=== PATIENT | female | born 1940 | race Caucasian/White ===

== ENCOUNTER → 2018-04-17 16:49 | Outpatient (CLI) | payer MEDICARE, OTHER, SELFPAY ==
[2018-03-17 11:03] VITALS: BMI 25.3
[2018-04-17 17:43] LABS: Absolute Neutrophil Count 7.8 X10^3/uL (2.0-7.7); Basophil# 0.03 X10^3/uL; Basophil% 0.3 % (0-1); Eosinophil# 0.09 X10^3/uL; Eosinophils% 0.8 % (0-5); Hematocrit 45.9 % (37-47); Hemoglobin 14.9 g/dl (12.0-15.0); Lymphocyte % 24.8 % (19-41); Mean Corp Hgb Conc 32.5 g/gl (32-36); Mean Corpuscular Hgb 29.8 pg (27.0-32.0); Mean Corpuscular Volume 91.8 fL (81-99); Mean Platelet Vol. 9.3 fl (6.2-12.0); Monocyte# 0.52 X10^3/uL; Monocyte% 4.6 % (0-10); Neutrophil # 7.83 X10^3/uL (2.7-7.7); Neutrophil % 69.1 % (47-70); Platelet Count 162 K/mm3 (150-450); RBC Distribution Width CV 14.2 % (11.6-14.6); RBC Distribution Width SD 47.7 fl (35.1-43.9); White Blood Count 11.3 K/mm3 (4.4-11.0)
[2018-04-17 17:44] LABS: POSITIVE COUNT NO; POSITIVE DIFFERENTIAL NO; POSITIVE MORPHOLOGY NO
[2018-04-17 19:12] LABS: BNP,B-Type NATRIURETIC PEPTIDE 14.4 pg/mL (0-100)
[2018-04-17 19:48] LABS: BUN 9 mg/dL (7-18); Creatinine, Serum 0.66 mg/dL (0.55-1.02); Glucose 149 mg/dL (74-106)
[2018-04-17 19:49] LABS: Anion Gap 9 (5-15); Calcium,Total 8.7 mg/dL (8.5-10.1); Chloride 103 mmol/L (98-107); Potassium 3.8 mmol/L (3.5-5.1); Sodium Level 135 mmol/L (136-145); Thyroid Stim Hormone (TSH) 1.11 uIU/mL (0.358-3.74)
[2018-04-24 18:18] LABS: BUN/Creat Ratio 13.7 RATIO (10-20); EST Glomerular Filtration Rate 92 mL/min (>60); Est Glom Filt Rate - Afr Amer 112 mL/min (>60)
== END ==
PROVIDERS: Family Provider Family Medicine; PCP Family Medicine; Referring Provider Physician Assistant Medical; Visit Provider Physician Assistant Medical
DX: I49.3 Ventricular premature depolarization (principal); I49.1 Atrial premature depolarization; R00.2 Palpitations; R00.0 Tachycardia, unspecified
CPT/HCPCS: 36415; 80048; 83880; 84439; 84443; 85025

== ENCOUNTER → 2018-04-22 12:51 | Outpatient (CLI) | payer MEDICARE, OTHER, SELFPAY ==
[2018-03-17 11:03] VITALS: BMI 25.3
== END ==
PROVIDERS: Family Provider Internal Medicine; PCP Internal Medicine; Referring Provider Physician Assistant Medical; Visit Provider Physician Assistant Medical
DX: I49.1 Atrial premature depolarization (principal); I49.3 Ventricular premature depolarization; R00.2 Palpitations; R00.0 Tachycardia, unspecified
CPT/HCPCS: 93225; 93226

== ENCOUNTER → 2018-04-25 13:59 | Outpatient (CLI) | payer MEDICARE, OTHER, SELFPAY ==
[2018-03-17 11:03] VITALS: BMI 25.3
--- NOTE | 2018-04-25 14:02 | ECHOD_ITS ---
Reason For Study: TACHYCARDIA Procedure This was a 2D Doppler, Color Flow transthoracic echocardiogram. Myocardial strain analysis was performed in this exam to aid in the assessment of cardiac function. The study was technically difficult. Exam performed in department. Left Ventricle Normal LV size. Left ventricular systolic function is lower limits of normal. The estimated ejection fraction is 50 %. The global longitudinal strain = -13% (abnormal). No evidence for diastolic dysfunction. No regional wall motion abnormalities noted. Right Ventricle Normal RV size. Normal systolic function. Atria Normal left atrium. Normal right atrium. No doppler evidence for ASD. Mitral Valve There is no mitral annular calcification. Normal mitral valve. Mild (1+) mitral valve insufficiency. Tricuspid Valve Normal tricuspid valve. Mild tricuspid valve insufficiency. Right ventricular systolic pressure estimated to be 20 mmHg. Aortic Valve Trisinus/trileaflet aortic valve. Normal aortic valve. Pulmonic Valve The pulmonic valve is not well visualized. Mild (1+) pulmonic valve insufficiency. Great Vessels Normal sized aortic root. Pericardium/Pleural No pericardial effusion. MMode/2D Measurements & Calculations LVIDd: 3.0 cm IVSd: 0.85 cm Ao root diam: 3.7 cm LVIDs: 2.3 cm LVPWd: 0.93 cm RVDd: 2.6 cm FS: 24.5 % LAV(MOD-sp4): 26.3 ml LA A4 area: 12.1 cm2 LA dimension(2D): 2.4 cm RA A4 area: 10.0 cm2 Doppler Measurements & Calculations MV E max molina: 22.6 cm/sec Lat Peak E' Molina: 4.9 cm/sec Med Peak E' Molina: 2.7 cm/sec MV A max molina: 81.9 cm/sec E/E' lat: 4.6 E/E' med: 8.4 MV E/A: 0.28 MV P1/2t max molina: 23.8 cm/sec Ao V2 max: 78.4 cm/sec LV V1 max: 61.8 cm/sec MV P1/2t: 59.2 msec Ao max P.5 mmHg LV V1 max P.6 mmHg MV dec slope: 117.7 cm/sec2 MVA(P1/2t): 3.7 cm2 PA V2 max: 50.9 cm/sec PI end-d molina: 125.4 cm/sec TR max molina: 208.6 cm/sec TR max P.4 mmHg Interpretation Summary The study was technically difficult. Left ventricular systolic function is lower limits of normal. The estimated ejection fraction is 50 %. The global longitudinal strain = -13% (abnormal). Mild (1+) mitral valve insufficiency. Mild tricuspid valve insufficiency. Mild (1+) pulmonic valve insufficiency. Right ventricular systolic pressure estimated to be 20 mmHg. No evidence for diastolic dysfunction. Ordering Physician: OMI WELLINGTON Referring Physician: DAYA GALLAGHER Performed By: Aby Loaiza, DIPESH, RVT
--- OUTSIDE RECORDS SUMMARY | 2018-06-30 03:55 | XMS RPT_ITS | Clinical Summary ---
:1940 Author Organization [facility] Address [facility] [place] [address] Phone Care Team Providers Name Role Phone Jennifer BARBOZA, Naomie Christensen Unavailable Unavailable Conditions or Problems Problem Name Problem Onset Status Entry Provider Comment Standard Annotate Code Date Date Description PALPITATIONS 50751470 Active Natalia Michelle Palpitations (SNOMED CT) / Carroll BARBOZA Dyspnea on 36168132 Active Naomie Rodriguez Dyspnea on exertion (SNOMED CT) / 0 RN exertion Headache 22360261 Active Shelton Riley Headache (SNOMED CT) /20 0 Ward HERNDON Angina 503487164 Active Shelton Riley 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 Body mass Z68.26 Active Shelton Riley Body mass index (BMI) (ICD-10-CM) /20 0 Moodisparakel index (BMI) 26.0-26.99, 26.0-26.9, adult adult Chest pain, 21814352 Active Rocio Carrington Chest pain unspecified (SNOMED CT) /20 0 TAMRA Rojas Medications Medication Instructions Start Stop Generic Name [facility] Provider Date Date IMDUR 30 MG One tablet by / ISOSORBIDE [id number] Shelton Riley [id number] mouth daily 20 MONONIT[address] Ward HERNDON METOPROLOL One tablet by / METOPROLOL [id number] Shelton Riley TARTRATE 25 MG mouth twice 20 TARTRATE Moodispaw TABS daily NITROGLYCERIN 1 tablet under / NITROGLYCERIN 78683985039 Shelton Riley 0.4 MG SUBL the tongue 20 Moodispaw every 5 minutes for chest pain x 3 OMEPRAZOLE 20 MG One tablet by OMEPRAZOLE 84119360528 Shelton Riley CPDR mouth daily as 20 Ward barnes MD ADULT ASPIRIN One tablet by ASPIRIN [id number] Shelton Riley REGIMEN 81 MG mouth daily 20 Moodispaw DAVC Medications Administered No information available. 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 Dietary management education, guidance, and counseling (procedure) SMOK STATUS Never smoker Tobacco use [facility] No Fall risk assessment MEDS REVIEW Done Documentation of current medications (procedure) Replaced Document: Midmark ECG Observations EKG INTERP Sinus Tachycardia electrocardiogram WITHIN NORMAL LIMITS interpretation EKG T AXIS 60 deg T wave axis, electrocardiogram EKG QRS AXIS 35 deg QRS axis, electrocardiogram EKG PWAVAXIS 58 deg P wave axis, electrocardiogram QRS INTERVAL 92 ms QRS duration, electrocardiogram ZZ-GE-unk 427 ms GE use only - for LinkLogic import when terms are not otherwise specified QT INTERVAL new path ms QT interval, electrocardiogram IL INTERVAL 162 ms IL interval, electrocardiogram EKGHRTRATE 103 BPM heart rate on electrocardiogram Clinical Lists Update: Preload CARDEFECHO 55 % Left ventricular Ejection fraction Lab Report: CBC W/Diff, Automated LYMPHCT AUTO 2.48 X10 3/UL 10*3/mm3 0.83-4.51 lymphocyte count, blood, automated ANC 4.8 X10 3/UL 10*3/mm3 2.0-7.7 neutrophil count, blood IMM GRANU % 0.400 % 0.0-0.9 immature granulocytes, percentage of total cells, blood BASOPHIL % 0.7 % 0-1 basophils as percent of blood leukocytes EOSINOPHIL % 2.2 % 0-5 eosinophils as percent of blood leukocytes MONOCYTE % 7.5 % 0-10 monocytes as percent of blood leukocytes LYMPHS % 30.4 % 19-41 lymphocytes as percent of blood leukocytes PMN % 58.8 % 47-70 neutrophils as percent of blood leukocytes MPV 10.1 fL 6.2-12.0 mean platelet volume PLATELETS 208 10*3/mm3 150-450 platelet count RDW-SD 43.0 fL 35.1-43.9 red blood cell distribution width, size density RDW 13.1 % 11.6-14.6 red blood cell distribution width MCHC RBC 33.8 G/GL g/dL 32-36 mean corpuscular hemoglobin concentration, RBC MCH 30.7 pg 27.0-32.0 mean corpuscular hemoglobin, RBC MCV 90.6 fL 81-99 mean corpuscular volume, RBC HCT 46.4 % 37-47 hematocrit, blood HGB 15.7 g/dL 12.0-15.0 H hemoglobin, blood RBC M/UL 5.12 10*6/uL 4.2-5.4 red blood count WBC BLOOD 8.2 10*9/L 4.4-11.0 leukocyte (white blood cells) count, blood Lab Report: Basic Metabolic Profile (BMP) ANION GAP 7 5-15 anion gap, serum CO2 29.0 mmol/L 21.0-32.0 carbon dioxide, venous blood CHLORIDE 100 mmol/L 98-107 chloride, serum POTASSIUM 3.6 mmol/L 3.5-5.1 potassium, serum SODIUM 136 mmol/L 136-145 sodium, serum CALCIUM 8.9 mg/dL 8.5-10.1 calcium, serum BUN/CREAT 23.6 RATIO 10-20 H urea nitrogen/creatinine ratio, serum CCVCREABSA 38.97 mL/min calculated corrected value of creatinine clearance with body surface area GFRAA 116 mL/min >60 Glomerular Filtration rate GFR EST 96 mL/min >60 estimated glomerular filtration rate CREATININE 0.64 mg/dL 0.55-1.02 creatinine, serum BUN 15 mg/dL 7-18 urea nitrogen, blood GLUCOSE SER 106 mg/dL 70-110 blood glucose Lab Report: Liver Profile BILI DIRECT 0.14 mg/dL 0.00-0.30 bilirubin, serum, direct BILI TOTAL 0.50 mg/dL 0.20-1.00 bilirubin, serum, total SGPT (ALT) 41 U/L 12-78 alanine aminotransferase (SGPT), serum ALK PHOS 109 U/L 45-117 alkaline phosphatase, serum SGOT (AST) 31 U/L 15-37 aspartate aminotransferase (SGOT), serum GLOBULIN TOT 3.2 g/dL 2.2-4.2 globulins, serum, total ALBUMIN 3.9 g/dL 3.4-5.0 albumin, serum PROTEIN, TOT 7.1 g/dL 6.4-8.2 protein, total, serum Lab Report: Lipid Profile VLDL 20 mg/dL 5-40 very low density lipoproteins LDL 106 mg/dL 0-130 Cholesterol in LDL [Mass/volume] in Serum or Plasma HDL 46 mg/dL Cholesterol in HDL [Mass/volume] in Serum or Plasma TRIGLYCRDES 102 mg/dL Triglyceride [Mass/volume] in Serum or Plasma CHOLESTEROL 172 mg/dL 200 Cholesterol [Mass/volume] in Serum or Plasma Lab Report: T4 Total, Thyroxin T4, TOTAL 9.8 ug/dL 4.8-13.9 thyroxine, serum, total Lab Report: Thyroid Stim Hormone (TSH) TSH 2.05 u[iU]/mL 0.358-3.74 thyroid stimulating hormone, serum Lab Report: Prothrombin Time w/INR INR 1.1 international normalized ratio (INR) PT RATIO 13.5 SECONDS 11.7-14.9 prothrombin time, actual/normal, ratio Lab Report: Partial Thromboplast Time ACTIV PTT 38.3 s 24.1-36.2 H activated partial thromboplastin time (aPTT) Plan of Care Type Date Detail Appointment 11:[address], [address], [place], [address], Appointment 11:30 AM Shelton Hopper MD, [address], [address], [place], [address], Pending order 30 Day Holter Monitor Pending order 30 Day Holter Monitor Pending order PFM Pending order Follow Up Appt 6 weeks Pending order *CBC with Differential Pending order *BMP Pending order *PT/INR Pending order *PTT-Partial Thromboplastin Time Pending order *Hepatic Function Panel Pending order *Lipid Profile CC PCP Pending order *T4 (Total) Pending order *TSH Pending order Echocardiogram (complete) Pending order Carotid duplex Pending order Left Heart Cath Pending order CT Head/Brain with and without Contrast Pending order Left Heart Cath Pending order CT Head/Brain with and without Contrast Pending Order excluded from report: Pending order CT Head/Brain without contrast Pending order X-Ray, Chest, PA & Lateral Procedures Code Procedure Name Date Entry Date [facility] Nurse, Teaching, Wound Check (no charge) [facility] Nurse, Teaching, Wound Check (no charge) CPT-72813 EKG (In office) F/U PFM PFM FUA 6 weeks Follow Up Appt 6 weeks Echo Echocardiogram (complete) CPT-79051 CT Head/Brain with and without Contrast Order excluded from report: CPT-73417 CT Head/Brain without contrast CD Carotid duplex 0184-1 *CBC with Differential 0667-1 *BMP 6301-6 *PT/INR 85890-1 *PTT-Partial Thromboplastin Time 0788-1 *Hepatic Function Panel 61820-5 *Lipid Profile CC PCP 3026-2 *T4 (Total) 3016-3 *TSH Vital Signs Date Name Value Unit Description BMI (Body Mass Index) 26.57 kg/m2 Body Mass Index [Ratio] BP Diastolic 84 mm[Hg] blood pressure, diastolic - 8462-4 BP Systolic 128 mm[Hg] blood pressure, systolic - 8480-6 Heart Rate 100 /min pulse rate E&M - 8867-4 Height 63 [in_us] height E&M - 8302-2 Height 160.02 cm height in centimeters E&M Respiratory Rate 18 /min respiratory rate E&M - 9279-1 Weight Measured 150 [lb_av] weight E&M - 3141-9 Weight Measured 68.04 kg weight in kilograms E&M
--- OUTSIDE RECORDS SUMMARY | 2018-06-30 03:56 | XMS RPT_ITS | Clinical Summary ---
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 Body mass Z68.26 Active Shelton Riley Body mass index (BMI) (ICD-10-CM) / Ward index (BMI) 26.0-26.99, 26.0-26.9, adult adult Chest pain, 64034665 Active Rocio Carrington Chest pain unspecified (SNOMED CT) / TAMRA Rojas Medications Medication Instructions Start Stop Generic Name [facility] Provider Date Date IMDUR 30 MG One tablet by / ISOSORBIDE [id number] Shelton Riley [id number] mouth daily 20 MONONITRATE Ward HERNDON METOPROLOL One tablet by / METOPROLOL [id number] Shelton Riley TARTRATE 25 MG mouth twice 20 TARTRATE Moodispaw TABS daily NITROGLYCERIN 1 tablet under / NITROGLYCERIN 44912660250 Shelton Riley 0.4 MG SUBL the tongue 20 Moodispaw every 5 minutes for chest pain x 3 OMEPRAZOLE 20 MG One tablet by / OMEPRAZOLE 75646094801 Shelton Riley CPDR mouth daily as 20 Moodispaw needed ADULT ASPIRIN One tablet by ASPIRIN 22501651652 Shelton Riley REGIMEN 81 MG mouth daily 20 Moodispaw TBEC Medications Administered No information available. 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 Dietary management education, guidance, and counseling (procedure) SMOK STATUS Never smoker Tobacco use [facility] No Fall risk assessment MEDS [...] INTERVAL new path ms QT interval, electrocardiogram [place] INTERVAL 162 ms AL interval, electrocardiogram EKGHRTRATE 103 BPM heart rate [...] Plan of Care Type Date Detail Appointment 11:30 AM Shelton Hopper MD, [address], [address], [place], [address], Pending order PFM Pending order Follow Up [...] Procedures Code Procedure Name Date Entry Date CPT-90527 EKG (In office) F/U PFM PFM FUA 6 weeks Follow Up Appt 6 weeks Echo Echocardiogram (complete) CPT-34533 CT Head/Brain with and without Contrast Order excluded from report: CPT-53436 CT Head/Brain without contrast CD Carotid duplex 0184-1 *CBC with Differential 0667-1 *BMP 6301-6 *PT/INR 10179-0 *PTT-Partial Thromboplastin Time 0788-1 *Hepatic Function Panel 57723-4 *Lipid Profile CC PCP 3026-2 *T4 (Total) [...]
--- OUTSIDE RECORDS SUMMARY | 2018-06-30 03:56 | XMS RPT_ITS | Clinical Summary ---
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 Body mass Z68.26 Active Shelton Riley Body mass index (BMI) (ICD-10-CM) / Ward index (BMI) 26.0-26.99, 26.0-26.9, adult adult Chest pain, 38853031 Active Rocio Carrington Chest pain unspecified (SNOMED CT) / TAMRA Rojas Medications Medication Instructions Start Stop Generic Name [facility] Provider Date Date IMDUR 30 MG One tablet by / ISOSORBIDE 61858117530 Shelton Riley [id number] mouth daily 20 MONONIT[address] Ward HERNDON METOPROLOL One tablet by / METOPROLOL 00714146120 Shelton Riley TARTRATE 25 MG mouth twice 20 TARTRATE Moodispaw TABS daily NITROGLYCERIN 1 tablet under / NITROGLYCERIN 13521180956 Shelton Riley 0.4 MG SUBL the tongue 20 Edmarisparakel every 5 minutes for chest pain x 3 OMEPRAZOLE 20 MG One tablet by / OMEPRAZOLE 38306456784 Shelton Riley CPDR mouth daily as 20 Moodispaw needed ADULT ASPIRIN One tablet by / ASPIRIN 96091612700 Shelton Riley REGIMEN 81 MG mouth daily 20 Moodispaw [facility] Medications Administered No information available. 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 Dietary management education, guidance, and counseling (procedure) SMOK STATUS Never smoker Tobacco use [facility] No Fall risk assessment MEDS REVIEW [...] INTERVAL new path ms QT interval, electrocardiogram [place] INTERVAL 162 ms ND interval, electrocardiogram EKGHRTRATE 103 BPM heart rate on electrocardiogram Plan of Care Type Date Detail Appointment 11:30 AM Shelton Hopper MD, [address] [facility], [address], [place], [address], Pending order PFM Pending order Follow Up [...] Pending order Left Heart Cath Pending order Echocardiogram (complete) Pending order CT Head/Brain with and without Contrast Pending Order excluded from report: Pending order CT Head/Brain without contrast Pending order X-Ray, Chest, PA & Lateral Pending order CT Head/Brain without contrast Pending order Carotid duplex Procedures Code Procedure Name Date Entry Date CPT-48467 EKG (In office) F/U PFM PFM FUA 6 weeks Follow Up Appt 6 weeks CPT-75801 CT Head/Brain with and without Contrast Order excluded from report: Vital Signs Date Name Value Unit Description [...]
--- OUTSIDE RECORDS SUMMARY | 2018-06-30 03:56 | XMS RPT_ITS | Clinical Summary ---
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 Body mass Z68.26 Active Shelton Riley Body mass index (BMI) (ICD-10-CM) / Ward index (BMI) 26.0-26.99, 26.0-26.9, adult adult Chest pain, 80127790 Active Rocio Carrington Chest pain unspecified (SNOMED CT) / TAMRA Rojas Medications Medication Instructions Start Stop Generic Name [facility] Provider Date Date IMDUR 30 MG One tablet by / ISOSORBIDE 65247377777 Shelton Riley [id number] mouth daily 20 MONONITRATE Ward HERNDON METOPROLOL One tablet by / METOPROLOL 87110539558 Shelton Riley TARTRATE 25 MG mouth twice 20 TARTRATE Moodispaw TABS daily NITROGLYCERIN 1 tablet under / NITROGLYCERIN 28244807754 Shelton Riley 0.4 MG SUBL the tongue 20 Edmarisparakel every 5 minutes for chest pain x 3 OMEPRAZOLE 20 MG One tablet by / OMEPRAZOLE 84376181208 Shelton Riley CPDR mouth daily as 20 Moodispaw needed ADULT ASPIRIN One tablet by / ASPIRIN 91877716946 Shelton Riley REGIMEN 81 MG mouth daily 20 Moodispaw [facility] Medications Administered No information available. 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 Dietary management education, guidance, and counseling [...] INTERVAL new path ms QT interval, electrocardiogram [place] INTERVAL 162 ms [place] interval, electrocardiogram EKGHRTRATE 103 BPM heart rate on electrocardiogram Plan of Care Type Date Detail Appointment 11:30 AM Shelton Hopper MD, [address], [address], [place], [address], Appointment 11:30 AM Shelton Hopper MD, [address], [address], [place], [address], Pending order PFM Pending order Follow Up [...] Procedures Code Procedure Name Date Entry Date CPT-98724 EKG (In office) F/U PFM PFM FUA 6 weeks Follow Up Appt 6 weeks CPT-28734 CT Head/Brain with and without Contrast Order [...]
--- OUTSIDE RECORDS SUMMARY | 2018-06-30 03:56 | XMS RPT_ITS | Clinical Summary ---
:1939 Author Organization [facility] Address [address] [place] [address] Phone Care Team Providers Name Role Phone Ward HERNDON, Shelton Riley Unavailable [ ] Conditions or Problems Problem Name Problem Onset Status Entry Provider Comment Standard Annotate Code Date Date Description Chest pain, R07.9 Active Rocio Carrington Chest pain, unspecified (ICD-10-CM /20 /20 TAMRA Rojas unspecified ) Medications No information available. Medications Administered No information available. Allergies, Adverse Reactions, Alerts No information available. Results No information available. Plan of Care Type Date Detail Appointment 11:30 AM Shelton Hopper MD, [address] [place] [address], [address], [place], [address], Procedures No information available. Vital Signs No information available.
--- OUTSIDE RECORDS SUMMARY | 2018-06-30 03:56 | XMS RPT_ITS | Clinical Summary ---
:1939 Author Organization [facility] Address [facility] [place] [address] Phone Care Team Providers Name Role Phone Carroll BARBOZA, Natalia Michelle Unavailable Conditions or Problems Problem Name Problem Onset Status Entry Provider Comment Standard Annotate Code Date Date Description PALPITATIONS 45860878 Active Natalia Michelle Palpitations (SNOMED CT) / Carroll BARBOZA Dyspnea on 43632556 Active Naomie A Jennifer Dyspnea on exertion (SNOMED CT) / 0 RN exertion Headache 54618903 Active Shelton Rilye Headache (SNOMED CT) /20 0 Moodisjosselin HERNDON Angina 465269519 Active Shelton Riley 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 Body mass Z68.26 Active Shelton Riley Body mass index (BMI) (ICD-10-CM) /20 0 Moodisparakel index (BMI) 26.0-26.99, 26.0-26.9, adult adult Chest pain, 16309571 Active Rocio Carrington Chest pain unspecified (SNOMED CT) /20 0 TAMRA Rojas Medications Medication Instructions Start Stop Generic Name [facility] Provider Date Date IMDUR 30 MG One tablet by / ISOSORBIDE 14565106918 Shelton Riley [id number] mouth daily 20 MONONITRATE Edmarisjosselin HERNDON METOPROLOL One tablet by / METOPROLOL 76997736260 Shelton Riley TARTRATE 25 MG mouth twice 20 TARTRATE Moodispaw TABS daily NITROGLYCERIN 1 tablet under / NITROGLYCERIN 94799363442 Shelton Riley 0.4 MG SUBL the tongue 20 Moodispaw every 5 minutes for chest pain x 3 OMEPRAZOLE 20 MG One tablet by OMEPRAZOLE 86511021593 Shelton Riley CPDR mouth daily as 20 Moodispaw needed MD ADULT ASPIRIN One tablet by ASPIRIN 66171242502 Shelton Riley REGIMEN 81 MG mouth daily 20 Moodispaw [facility] Medications Administered No information available. 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 Dietary management education, guidance, and counseling (procedure) SMOK STATUS Never smoker Tobacco use [facility] No Fall risk assessment MEDS REVIEW [...] INTERVAL new path ms QT interval, electrocardiogram [place] INTERVAL 162 ms [place] interval, electrocardiogram EKGHRTRATE 103 BPM heart rate [...] Plan of Care Type Date Detail Appointment 10:30 AM [address], [address], [place], [address], Appointment 11:30 AM Shelton Hopper MD, [address], [address], [place], [address], Pending order 30 Day Holter Monitor Pending [...] Procedures Code Procedure Name Date Entry Date CPT-88746 EKG (In office) F/U PFM PFM FUA 6 weeks Follow Up Appt 6 weeks Echo Echocardiogram (complete) CPT-36088 CT Head/Brain with and without Contrast Order excluded from report: CPT-93798 CT Head/Brain without contrast CD Carotid duplex 0184-1 *CBC with Differential 0667-1 *BMP 6301-6 *PT/INR 82881-9 *PTT-Partial Thromboplastin Time 0788-1 *Hepatic Function Panel 44136-2 *Lipid Profile CC PCP 3026-2 *T4 (Total) [...]
--- OUTSIDE RECORDS SUMMARY | 2018-06-30 03:56 | XMS RPT_ITS | Clinical Summary ---
:1940 Author Organization [facility] Address [facility] [place] [address] Phone Care Team Providers Name Role Phone Jennifer BARBOZA, Naomie Christensen Unavailable Unavailable Conditions or Problems Problem Name Problem Onset Status Entry Provider Comment Standard Annotate Code Date Date Description PALPITATIONS 87380045 Active Natalia Michelle Palpitations (SNOMED CT) / Carroll BARBOZA Dyspnea on 96102277 Active Naomie Rodriguez Dyspnea on exertion (SNOMED CT) / 0 RN exertion Headache 14487864 Active Shelton Riley Headache (SNOMED CT) /20 0 Ward HERNDON Angina 823783529 Active Shelton Riley 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 Body mass Z68.26 Active Shelton Riley Body mass index (BMI) (ICD-10-CM) /20 0 Moodisparakel index (BMI) 26.0-26.99, 26.0-26.9, adult adult Chest pain, 28874087 Active Rocio Carrington Chest pain unspecified (SNOMED CT) /20 0 TAMRA Rojas Medications Medication Instructions Start Stop Generic Name [facility] Provider Date Date IMDUR 30 MG One tablet by / ISOSORBIDE [id number] Shelton Riley [id number] mouth daily 20 [address] Ward HERNDON METOPROLOL One tablet by / METOPROLOL 08190992429 Shelton Riley TARTRATE 25 MG mouth twice 20 TARTRATE Moodispaw TABS daily NITROGLYCERIN 1 tablet under / NITROGLYCERIN 82630080702 Shelton Riley 0.4 MG SUBL the tongue 20 Moodispaw every 5 minutes for chest pain x 3 OMEPRAZOLE 20 MG One tablet by OMEPRAZOLE 92007867459 Shelton Riley CPDR mouth daily as 20 Ward barnes MD ADULT ASPIRIN One tablet by ASPIRIN 24792636544 Shelton Riley REGIMEN 81 MG mouth daily 20 Moodispaw DAVC Medications Administered No information available. 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 Dietary management education, guidance, and counseling (procedure) SMOK STATUS Never smoker Tobacco use [facility] No Fall risk assessment [...] Date Detail Appointment 11:00 AM [address], [address], [place], [address], Appointment 11:30 AM Shelton Hopper MD, [address], [address], [place], [address], Pending order 30 Day Holter Monitor Pending [...] Procedures Code Procedure Name Date Entry Date [facility] Nurse, Teaching, Wound Check (no charge) CPT-52078 EKG (In office) F/U PFM PFM FUA 6 weeks Follow Up Appt 6 weeks Echo Echocardiogram (complete) CPT-31932 CT Head/Brain with and without Contrast Order excluded from report: CPT-04929 CT Head/Brain without contrast CD Carotid duplex 0184-1 *CBC with Differential 0667-1 *BMP 6301-6 *PT/INR 05508-3 *PTT-Partial Thromboplastin Time 0788-1 *Hepatic Function Panel 68231-6 *Lipid Profile CC PCP 3026-2 *T4 (Total) [...]
--- OUTSIDE RECORDS SUMMARY | 2018-06-30 03:56 | XMS RPT_ITS | Clinical Summary ---
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 Body mass Z68.26 Active Shelton Riley Body mass index (BMI) (ICD-10-CM) / Ward index (BMI) 26.0-26.99, 26.0-26.9, adult adult Chest pain, R07.9 Active Rocio Carrington Chest pain, unspecified (ICD-10-CM) / TAMRA Rojas unspecified Medications Medication Instructions Start Stop Generic Name [facility] Provider Date Date IMDUR 30 MG One tablet by / ISOSORBIDE [id number] Shelton Riley [id number] mouth daily [address] Ward HERNDON METOPROLOL One tablet by / METOPROLOL 24962897258 Shelton Riley TARTRATE 25 MG mouth twice 20 TARTRATE Moodispaw TABS daily NITROGLYCERIN 1 tablet under / NITROGLYCERIN 48659193531 Shelton Riley 0.4 MG SUBL the tongue 20 Moodispaw every 5 minutes for chest pain x 3 OMEPRAZOLE 20 MG One tablet by / OMEPRAZOLE 84837053069 Shelton Riley CPDR mouth daily as 20 Moodispaw needed ADULT ASPIRIN One tablet by / ASPIRIN 54631793676 Shelton Riley REGIMEN 81 MG mouth daily 20 Moodispaw TBEC MD Medications Administered No information available. 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 Dietary management education, guidance, and counseling (procedure) SMOK STATUS Never smoker Tobacco use [facility] No Fall risk assessment [...] INTERVAL new path ms QT interval, electrocardiogram LA INTERVAL 162 ms LA interval, electrocardiogram EKGHRTRATE 103 BPM heart rate on electrocardiogram Plan of Care Type Date Detail Appointment 11:30 AM Shelton Hopper MD, [address], [address], [place], [address], Appointment 11:30 AM Shelton Hopper MD, [address], [address], [place], [address], Pending order PFM Pending order Follow Up [...] Procedures Code Procedure Name Date Entry Date CPT-92669 EKG (In office) F/U PFM PFM FUA 6 weeks Follow Up Appt 6 weeks CPT-02446 CT Head/Brain with and without Contrast Order [...]
--- OUTSIDE RECORDS SUMMARY | 2018-06-30 03:56 | XMS RPT_ITS | Clinical Summary ---
:1940 Author Organization [facility] Address [facility] [place] [address] Phone Care Team Providers Name Role Phone Jennifer RN, Naomie Christensen Unavailable Unavailable Conditions or Problems Problem Name Problem Onset Status Entry Provider Comment Standard Annotate Code Date Date Description Dyspnea on 26300118 Active Naomie Rodriguez Dyspnea on exertion (SNOMED CT) / RN exertion Headache 18552691 Active Shelton Riley Headache (SNOMED CT) / Ward HERNDON Angina 100672085 Active Shelton Riley Angina pectoris (SNOMED CT) / Edmarispaw pectoris Body mass Z68.26 Active Shelton Riley Body mass index (BMI) (ICD-10-CM) / Moodisparakel index (BMI) 26.0-26.99, 26.0-26.9, adult adult Chest pain, 56563452 Active Rocio Carrington Chest pain unspecified (SNOMED CT) / TAMRA Rojas Medications Medication Instructions Start Stop Generic Name [facility] Provider Date Date IMDUR 30 MG One tablet by / ISOSORBIDE 53517453496 Shelton Riley [id number] mouth daily 20 MONONITRATE Moodisjosselin HERNDON METOPROLOL One tablet by / METOPROLOL 03136891243 Shelton Riley TARTRATE 25 MG mouth twice 20 TARTRATE Moodispaw TABS daily NITROGLYCERIN 1 tablet under / NITROGLYCERIN 08003789393 Shelton Riley 0.4 MG SUBL the tongue 20 Moodispaw every 5 minutes for chest pain x 3 OMEPRAZOLE 20 MG One tablet by / OMEPRAZOLE 09653535172 Shelton Riley CPDR mouth daily as 20 Moodispaw needed ADULT ASPIRIN One tablet by 2017/10/ ASPIRIN 19222707939 Shelton Riley REGIMEN 81 MG mouth daily 20 Ward SOTELO MD Medications Administered No information available. 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 Dietary management education, guidance, and counseling (procedure) SMOK STATUS Never smoker Tobacco use [facility] No Fall risk assessment [...] INTERVAL new path ms QT interval, electrocardiogram IN INTERVAL 162 ms IN interval, electrocardiogram EKGHRTRATE 103 BPM heart rate on electrocardiogram Clinical Lists Update: Preload CARDEFECHO 55 % Left ventricular Ejection fraction Plan of Care Type Date Detail Appointment 11:30 AM Shelton Hopper MD, [address], [address], [place], [address], Pending order PFM Pending order Follow Up [...] Procedures Code Procedure Name Date Entry Date CPT-75679 EKG (In office) F/U PFM PFM FUA 6 weeks Follow Up Appt 6 weeks Echo Echocardiogram (complete) CPT-85462 CT Head/Brain with and without Contrast Order excluded from report: CPT-96554 CT Head/Brain without contrast CD Carotid duplex Vital Signs Date Name Value Unit Description [...]
--- OUTSIDE RECORDS SUMMARY | 2018-06-30 03:56 | XMS RPT_ITS | Clinical Summary ---
:1940 Author Organization [facility] Address [facility] [place] [address] Phone Care Team Providers Name Role Phone Carroll BARBOZA, Natalia Michelle Unavailable Conditions or Problems Problem Name Problem Onset Status Entry Provider Comment Standard Annotate Code Date Date Description PALPITATIONS 15286297 Active Natalia Michelle Palpitations (SNOMED CT) / Carroll BARBOZA Dyspnea on 61929713 Active Naomie A Jennifer Dyspnea on exertion (SNOMED CT) / 0 RN exertion Headache 53700766 Active Shelton Riley Headache (SNOMED CT) /20 0 Moodisjosselin HERNDON Angina 619918889 Active Shelton Riley 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 Body mass Z68.26 Active Shelton Riley Body mass index (BMI) (ICD-10-CM) /20 0 Moodisparakel index (BMI) 26.0-26.99, 26.0-26.9, adult adult Chest pain, 30848300 Active Rocio Carrington Chest pain unspecified (SNOMED CT) /20 0 TAMRA Rojas Medications Medication Instructions Start Stop Generic Name [facility] Provider Date Date IMDUR 30 MG One tablet by / ISOSORBIDE [id number] Shelton Riley [id number] mouth daily 20 MONONITRATE Edmarisjosselin HERNDON METOPROLOL One tablet by / METOPROLOL 99402821586 Shelton Riley TARTRATE 25 MG mouth twice 20 TARTRATE Moodispaw TABS daily NITROGLYCERIN 1 tablet under / NITROGLYCERIN 28410026205 Shelton Riley 0.4 MG SUBL the tongue 20 Moodispaw every 5 minutes for chest pain x 3 OMEPRAZOLE 20 MG One tablet by OMEPRAZOLE 99255572303 Shelton Riley CPDR mouth daily as 20 Moodispaw needed MD ADULT ASPIRIN One tablet by ASPIRIN 20863334983 Shelton Riley REGIMEN 81 MG mouth daily 20 Moodispaw BANNERC Medications Administered No information available. 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 Dietary management education, guidance, and [...] INTERVAL new path ms QT interval, electrocardiogram DC INTERVAL 162 ms DC interval, electrocardiogram EKGHRTRATE 103 BPM heart rate [...] Date Detail Appointment 10:30 AM [address], [address], [place], [address], Appointment 11:30 AM Shelton Hopper MD, [address], [address], [place], [address], Pending order 30 Day Holter Monitor Pending [...] Procedures Code Procedure Name Date Entry Date CPT-46423 EKG (In office) F/U PFM PFM FUA 6 weeks Follow Up Appt 6 weeks Echo Echocardiogram (complete) CPT-63810 CT Head/Brain with and without Contrast Order excluded from report: CPT-74007 CT Head/Brain without contrast CD Carotid duplex 0184-1 *CBC with Differential 0667-1 *BMP 6301-6 *PT/INR 41074-0 *PTT-Partial Thromboplastin Time 0788-1 *Hepatic Function Panel 20386-0 *Lipid Profile CC PCP 3026-2 *T4 (Total) [...]
--- OUTSIDE RECORDS SUMMARY | 2018-06-30 03:57 | XMS RPT_ITS ---
:1940 Author Organization [place] Support Name Relationship Address Phone ANALIA ARROYO Unavailable [address] + [place] [address] NADINE ARROYON Unavailable Unavailable Unavailable DAGUE, JULIA Unavailable [address] + [place] [address] ANALIA ARROYO Unavailable [address] + [place] [address] DAGUE, JULIA Unavailable UNKNOWN + UNKNOWN, UNKNOWN UNKNOWN R Unavailable Unavailable Unavailable ANALIA ARROYO Unavailable [address] + [place] [address] ROBERT, JULIA Unavailable Unavailable + R Unavailable Unavailable Unavailable ANALIA ARROYO Unavailable [address] + [place] [address] ROBERT, JULIA Unavailable Unavailable + R Unavailable Unavailable Unavailable ANALIA ARROYO Unavailable [address] [place] [address] CRUZLOBOJASON Unavailable Unavailable Unavailable ROBERT, JULIA Unavailable Unavailable + ANALIA ARROYO Unavailable [address] [place] [address] ARROYONADINEN Unavailable Unavailable Unavailable ROBERT, JULIA Unavailable Unavailable + ANALIA ARROYO Unavailable [address] + [place] [address] JULIA JONES Unavailable Unavailable + R Unavailable Unavailable Unavailable ANALIA ARROYO Unavailable NA + [place], [place] JULIA JONES Unavailable NA + [place], [place] R Unavailable Unavailable Unavailable ANALIA ARROYO Unavailable NA + [place], [place] DAGUE, JULIA Unavailable NA + [place], [place] R Unavailable Unavailable Unavailable CRUZ ANALIA Unavailable [address] Unavailable [facility] [place] [address] ARROYO, JASON Unavailable Unavailable Unavailable DAGUE, JULIA Unavailable Unavailable + ARROYO, ANALIA Unavailable [address] Unavailable [facility] [place] [address] ARROYO, JASON Unavailable Unavailable Unavailable DAGUE, JULIA Unavailable Unavailable + ARROYO, ANALIA Unavailable [address] Unavailable [facility] [place] [address] ARROYO, JASON Unavailable Unavailable Unavailable DAGUE, JULIA Unavailable Unavailable + ARROYO, ANALIA Unavailable [address] Unavailable [facility] [place] [address] ARROYO, JASON Unavailable Unavailable Unavailable DAGUE, JULIA Unavailable Unavailable + ARROYO, ANALIA Unavailable [address] Unavailable [facility] [place] [address] ARROYO, JASON Unavailable Unavailable Unavailable DAGUE, JULIA Unavailable Unavailable + ARROYO, ANALIA Unavailable [address] Unavailable [facility] [place] [address] ARROYO, JASON Unavailable Unavailable Unavailable DAGUE, JULIA Unavailable Unavailable + ARROYO, ANALIA Unavailable [address] Unavailable [facility] [place] [address] ARROYO, JASON Unavailable Unavailable Unavailable DAGUE, JULIA Unavailable Unavailable + ARROYO, ANALIA Unavailable [address] Unavailable [facility] [place] [address] ARROYO, JASON Unavailable Unavailable Unavailable DAGUE, JULIA Unavailable Unavailable + ARROYO, ANALIA Unavailable [address] Unavailable [facility] [place] [address] ARROYO, JASON Unavailable Unavailable Unavailable DAGUE, JULIA Unavailable Unavailable + ARROYO, ANALIA Unavailable [address] Unavailable [facility] [place] [address] ARROYO, JASON Unavailable Unavailable Unavailable DAGUE, JULIA Unavailable Unavailable + ARROYO, ANALIA Unavailable [address] Unavailable [facility] [place] [address] ARROYO, JASON Unavailable Unavailable Unavailable DAGUE, JULIA Unavailable Unavailable + ANALIA ARROYO Unavailable [address] [place] [address] JASON ARROYO Unavailable Unavailable Unavailable DAGUE, JULIA Unavailable Unavailable + ANALIA ARROYO Unavailable NA + NA, [place] DAGUE, JULIA Unavailable NA + NA, [place] R Unavailable Unavailable Unavailable ANALIA ARROYO Unavailable NA + NA, [place] DAGUE, JULIA Unavailable NA + NA, [place] R Unavailable Unavailable Unavailable ANALIA ARROYO Unavailable [address] [place] [address] JASON ARROYO Unavailable Unavailable Unavailable DAGUE, JULIA Unavailable Unavailable + Care Team Providers Name Role Phone ERMELINDA GONZALEZ Referring Unavailable GANTA, DAYA C Primary Care Unavailable ERMELINDA GONZALEZ Attending Unavailable PATRIA, BHUVANESWARI Attending Unavailable GANTA, DAYA C Referring Unavailable GANTA, DAYA C Primary Care Unavailable PATRIA, BHUVANESWARI Attending Unavailable PATRIA, BHUVANESWARI Referring Unavailable GANTA, DAYA C Primary Care Unavailable PATRIA, BHUVANESWARI Attending Unavailable PATRIA, BHUVANESWARI Referring Unavailable GANTA, DAYA C Primary Care Unavailable PATRIA, BHUVANESWARI Attending Unavailable PATRIA, BHUVANESWARI Referring Unavailable GANTA, DAYA C Primary Care Unavailable KIRK MCKEON Attending Unavailable KIRK MCKEON Referring Unavailable GANTA, DAYA C Primary Care Unavailable GANTA, DAYA C Primary Care Unavailable HALL, JISHU K Admitting Unavailable HALL, JISHU K Attending Unavailable CONSULT, PULMONOLOGY Consulting Unavailable JESSA RUDOLPH Attending Unavailable JESSA RUDOLPH Referring Unavailable GANTA, DAYA C Primary Care Unavailable REDDENS, KAAMILYA Attending Unavailable REDDENS, KAAMILYA Referring Unavailable GANTA, DAYA C Primary Care Unavailable MIKA BANKS K Attending Unavailable MIKA BANKS Referring Unavailable GANTA, DAYA C Primary Care Unavailable OMI WELLINGTON Attending Unavailable KIRK MCKEON Referring Unavailable GANTA, DAYA C Primary Care Unavailable GUI MCKEON Attending Unavailable GANTA, DAYA C Referring Unavailable GANTA, DAYA C Primary Care Unavailable OMI WELLINGTON Attending Unavailable OMI WELLINGTON Referring Unavailable GANTA, DAYA C Primary Care Unavailable OMI WELLINGTON Attending Unavailable GANTA, DAYA C Referring Unavailable GANTA, DAYA C Primary Care Unavailable HOSEA ROSSI Admitting Unavailable GANTA, DAYA C Primary Care Unavailable HOSEA ROSSI Referring Unavailable CONSULT, PULMONOLOGY Consulting Unavailable TENA REED Attending Unavailable ERMELINDA GONZALEZ Attending Unavailable GANTA, DAYA C Referring Unavailable GANTA, DAYA C Primary Care Unavailable GANTA, DAYA Attending Unavailable GANTA, DAYA Referring Unavailable Natalia Edwards Attending Unavailable Natalia Edwards Referring Unavailable Malys, Alisha Primary Care Unavailable Natalia Edwards Attending Unavailable Natalia Edwards Referring Unavailable Ganta, Daya Primary Care Unavailable Shelton Hopper Consulting Unavailable DANNIELLE NEVES Attending Unavailable DANNIELLE NEVES Referring Unavailable Ganta, Daya Primary Care Unavailable DANNIELLE NEVES Consulting Unavailable Shelton Hopper Attending Unavailable Ganta, Daya Referring Unavailable Malys, Alisha Primary Care Unavailable Referred, Self Attending Unavailable [facility] 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, University unspecified / [facility] J84.9(ICD-10) Center Repository Admitting Shortness of breath TENA REED [place] [address] diagnosis / R06.02(ICD-10) [facility] [place] [facility] Repository Active Eosinophilia / NA Active [place] 9 D72.1(ICD-10) [facility] [place] Repository Unknown I49.3 - Ventricular MoodispaShelton ellington Active [place] 9 premature Community depolarization / Hospital I49.3(ICD-10) Repository Unknown R00.2 - Palpitations MoodisShelton schwab Active [place] 9 / R00.2(ICD-10) [facility] Repository Unknown I49.1 - Atrial MoodispaShelton ellington Active [place] 9 premature Community depolarization / Hospital I49.1(ICD-10) Repository Unknown R06.09 - Other forms MoodisShelton schwab Active [place] 9 of dyspnea / Community R06.09(ICD-10) Hospital Repository Unknown 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, 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 / I25.10(ICD-10) Unknown R00.0 - Tachycardia, Grace Active [place] 9 unspecified / Natalia [facility] R00.0(ICD-10) Hospital Repository Admitting Eosinophilia / OMI WELLINGTON Active [place] [address] diagnosis D72.1(ICD-10) [facility] [place] [facility] Repository Admitting Malignant neoplasm OMI WELLINGTON Active [place] [address] diagnosis of unspecified site [facility] female breast / Center C50.919(ICD-10) Repository Admitting Follow-up / 145() OMI WELLINGTON Active [place] [address] diagnosis [facility] Repository Admitting Lobar pneumonia, HREACHMACK, Active [place] [address] diagnosis unspecified organism MIKA Restrepo [facility] / J18.1(ICD-10) [facility] Repository Admitting Abnormal findings on HALL, IRVINNeil Restrepo [place] [address] diagnosis diagnostic imaging [facility] body structures / Center R93.8(ICD-10) Repository Admitting Malignant neoplasm PATRIA, Active [place] [address] diagnosis of unspecified site [facility] of left female [facility] breast / Center C50.912(ICD-10) Repository Admitting Estrogen receptor PATRIA, Active [facility] 8 diagnosis negative status [facility] (ER-) / [facility] Z17.1(ICD-10) Center Repository Admitting Personal history of ERMELINDA GONZALEZ Active [facility] 8 diagnosis malignant neoplasm P Foster of breast / [facility] Z85.3(ICD-10) Center Repository Admitting 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 P Foster and nipples / [facility] Z90.13(ICD-10) Center Repository PROCEDURES PROCEDURES No Procedure Records FoundRESULTS RESULTS *POC GLUCOSE BATTERY Collected: 05/04/2018 Status: F Source: [facility] 11:28 AM [facility] REPOSITORY TYPE CODE TESTS RESULT OUT OF REFERENCE UNITS RANGE LAB GLUP 70-99 mg/dL High Glucose (poc 186 device) Result Comment: Meets BRAVE per RN: PATIENT TYPE LAB PCSTYP *POC SAMPLE TYPE Venous XR CHEST PORTABLE Observed: 05/04/2018 Status: F Source: [facility] 10:10 AM [facility] REPOSITORY EXAM: XR CHEST PORTABLE, 05/04/2018 05:24 AM COMPARISON: 05/03/2018 CLINICAL INDICATIONS: pneumothorax RELEVANT CLINICAL HISTORY: FINDINGS: (Adequate technique) Life Support Devices: Stable Chest Wall: Air is seen along the right chest wall with skin clips. Sruthi: Stable Mediastinum: Stable Pleural Spaces: Pleural effusions persist. There is a small right subpulmonic pneumothorax Lungs: There are stable interstitial and alveolar opacities similar to the prior exam. Cardiac Silhouette: Stable size and contour Thoracic Aorta: Normal Pulmonary Vessels: Normal, without PVH IMPRESSION: Persistent pleural effusions with diffuse interstitial and airspace opacities Small right subpulmonic pneumothorax *POC GLUCOSE BATTERY Collected: 05/04/2018 Status: F Source: [facility] 6:12 AM [facility] REPOSITORY TYPE CODE TESTS RESULT OUT OF REFERENCE UNITS RANGE LAB GLUP 70-99 mg/dL High Glucose (poc 129 device) Result Comment: No BRAVE per RN: PATIENT TYPE LAB PCSTYP *POC Capillary SAMPLE TYPE Blood CBC,PLATELET,DIFFERENTIAL - CCL Collected: Status: F Source: [facility] 05/04/2018 2:31 AM [facility] REPOSITORY TYPE CODE TESTS RESULT OUT OF REFERENCE UNITS RANGE LAB WBC 3.99-11.19 K/uL WBC Count 15.51 High LAB RBC 3.91-5.04 M/uL RBC Count 4.28 LAB HGB 11.4-15.2 g/dL Hemoglobin 12.7 LAB HCT 34.9-44.3 % Hematocrit 39.4 LAB MCV 79.6-97.7 fL Mean Cell 92.1 Volume LAB MCH 25.9-33.9 pg Mean Cell 29.7 Hgb LAB MCHC 31.4-35.9 g/dL Mean Cell 32.2 Hgb Conc LAB RDW 10.8-14.9 % RBC 14.1 Distribution LAB PLT 150-393 K/uL Platelet 211 Count LAB MPV 8.5-12.2 fL Mean 9.2 Platelet Volume LAB NRBC 0.0-0.2 /100 WBC NUCLEATED 0.0 RBC LAB DTYPE Electronic DIFFERENTIAL TYPE Differential LAB IGRE % IMMATURE 0.5 GRANS % LAB SEGS % NEUTROPHIL 77.7 SEGMENTED LAB LYM % LYMPHOCYTE 14.6 % LAB MON % MONOCYTE % 6.9 LAB EOS % *EOSINOPHIL 0.2 % LAB BASO % BASOPHIL % 0.1 LAB IGABS 0.00-0.08 K/uL IMMATURE 0.08 GRANS ABSOLUTE LAB SBANS 1.64-7.28 K/uL SEGS + 12.05 High Bands,Absolute LAB ALYM 1.16-3.51 K/uL Abs Lymph 2.26 LAB AMONO 0.22-0.87 K/uL Abs Toombs 1.07 High LAB AEOS 0.00-0.42 K/uL Abs Eos <0.04 LAB ABASO 0.00-0.15 K/uL Abs Baso <0.04 Performed By: #### CBCDFC, CA, CHM7, IPB, MGO #### [facility] [address] [place] [address] CALCIUM Collected: 05/04/2018 Status: F Source: [facility] 2:31 AM [facility] REPOSITORY TYPE CODE TESTS RESULT OUT OF REFERENCE UNITS RANGE LAB CA 8.6-10.5 mg/dL Calcium 8.8 Performed By: #### SIERRADFC, CA, CHM7, IPB, MGO #### [facility] [address] [place] [id number] [place] [address] [place] [id number] CHEM 7 Collected: 05/04/2018 Status: F Source: [facility] 2:31 AM [facility] REPOSITORY TYPE CODE TESTS RESULT OUT OF REFERENCE UNITS RANGE LAB BUN 7-22 mg/dL BUN 9 LAB NA 133-143 mmol/L Sodium 133 LAB K 3.5-5.0 mmol/L Potassium 4.0 LAB CL 98-108 mmol/L Chloride 99 LAB CO2 22-30 mmol/L Carbon Dioxide 26 LAB GLUC 70-99 mg/dL Glucose High 149 LAB CREA 0.50-1.20 mg/dL Creatinine 0.67 LAB GAP 7-17 mmol/L Anion Gap 12 LAB BC BUN/CREA Ratio 13 LAB OSMC 278-305 mOsm/kg Osmolality 282 (Calc) LAB GFR >60 mL/min/1.73 sqM Est GFR,non >60 Slovak LAB GFRA >60 mL/min/1.73 sqM Est GFR, >60 Performed By: #### KARMA, CA, CHM7, IPB, MGO #### [facility] [address] [place] [address] [place] [id number] INORGANIC PHOSPHATE Collected: 05/04/2018 Status: F Source: [facility] 2:31 AM [facility] REPOSITORY TYPE CODE TESTS RESULT OUT OF REFERENCE UNITS RANGE LAB IP 2.2-4.6 mg/dL Inorg Phosphate 3.1 Performed By: #### SIERRADFC, CA, CHM7, IPB, MGO #### [facility] [address] [place] [id number] [place] [address] [place] [id number] MAGNESIUM Collected: 05/04/2018 Status: F Source: [facility] 2:31 AM [facility] REPOSITORY TYPE CODE TESTS RESULT OUT OF REFERENCE UNITS RANGE LAB MG 1.6-2.6 mg/dL Magnesium 2.2 Performed By: #### CBCDFC, CA, CHM7, IPB, MGO #### [facility] [address] [place] [address] [facility] [address] [place], [place] [address] XR CHEST PORTABLE Observed: 05/03/2018 Status: F Source: [facility] 8:43 PM [facility] REPOSITORY EXAM: XR CHEST PORTABLE, 05/03/2018 07:41 AM COMPARISON: Compared to prior day. CLINICAL INDICATIONS: postop RELEVANT CLINICAL HISTORY: FINDINGS: (Adequate technique) Stable right chest tube. Interval improvement of bilateral patchy airspace and interstitial opacities. Stable cardiac silhouette. Stable small bilateral pleural effusions. No pneumothorax. IMPRESSION: Improving bilateral airspace disease. No other change. *POC GLUCOSE BATTERY Collected: 05/03/2018 Status: F Source: [facility] 8:30 PM [facility] REPOSITORY TYPE CODE TESTS RESULT OUT OF REFERENCE UNITS RANGE LAB GLUP 70-99 mg/dL High Glucose (poc 204 device) Result Comment: No BRAVE per RN: PATIENT TYPE LAB PCSTYP *POC Capillary SAMPLE TYPE Blood *POC GLUCOSE BATTERY Collected: 05/03/2018 Status: F Source: [facility] 6:00 PM [facility] REPOSITORY TYPE CODE TESTS RESULT OUT OF REFERENCE UNITS RANGE LAB GLUP 70-99 mg/dL High Glucose (poc 256 device) Result Comment: Meets BRAVE per RN: PATIENT TYPE LAB PCSTYP *POC SAMPLE TYPE Venous *POC GLUCOSE BATTERY Collected: 05/03/2018 Status: F Source: [facility] 11:24 AM [facility] REPOSITORY TYPE CODE TESTS RESULT OUT OF REFERENCE UNITS RANGE LAB GLUP 70-99 mg/dL High Glucose (poc 151 device) Result Comment: Meets BRAVE per RN: PATIENT TYPE LAB PCSTYP *POC SAMPLE TYPE Venous XR CHEST PORTABLE Observed: 05/03/2018 Status: F Source: [facility] 9:13 AM [facility] REPOSITORY EXAM: XR CHEST PORTABLE, 05/02/2018 23:26 PM COMPARISON: Compared to earlier exam on the same day. CLINICAL INDICATIONS: Pneumothorax RELEVANT CLINICAL HISTORY: In PACU or SICU; FINDINGS: (Adequate technique) Interval placement of a right chest tube. Extensive bilateral interstitial and alveolar opacities. Suspected bilateral pleural effusions. Cardiac silhouette is partially obscured. No visualized pneumothorax. IMPRESSION: Placement right-sided chest tube. No visualized pneumothorax. Extensive pulmonary edema. *POC GLUCOSE BATTERY Collected: 05/03/2018 Status: F Source: [facility] 8:55 AM [facility] REPOSITORY TYPE CODE TESTS RESULT OUT OF REFERENCE UNITS RANGE LAB GLUP 70-99 mg/dL High Glucose (poc 141 device) Result Comment: Meets BRAVE per RN: PATIENT TYPE LAB PCSTYP *POC SAMPLE TYPE Venous CBC,PLATELET,DIFFERENTIAL - CCL Collected: Status: F Source: [facility] 05/03/2018 5:10 AM [facility] REPOSITORY TYPE CODE TESTS RESULT OUT OF REFERENCE UNITS RANGE LAB WBC 3.99-11.19 K/uL WBC Count 17.81 High LAB RBC 3.91-5.04 M/uL RBC Count 4.48 LAB HGB 11.4-15.2 g/dL Hemoglobin 13.4 LAB HCT 34.9-44.3 % Hematocrit 40.9 LAB MCV 79.6-97.7 fL Mean Cell 91.3 Volume LAB MCH 25.9-33.9 pg Mean Cell 29.9 Hgb LAB MCHC 31.4-35.9 g/dL Mean Cell 32.8 Hgb Conc LAB RDW 10.8-14.9 % RBC 13.9 Distribution LAB PLT 150-393 K/uL Platelet 224 Count LAB MPV 8.5-12.2 fL Mean 9.3 Platelet Volume LAB NRBC 0.0-0.2 /100 WBC NUCLEATED 0.0 RBC LAB DTYPE Electronic DIFFERENTIAL TYPE Differential LAB IGRE % IMMATURE 0.4 GRANS % LAB SEGS % NEUTROPHIL 83.2 SEGMENTED LAB LYM % LYMPHOCYTE 10.3 % LAB MON % MONOCYTE % 5.9 LAB EOS % *EOSINOPHIL 0.0 % LAB BASO % BASOPHIL % 0.2 LAB IGABS 0.00-0.08 K/uL IMMATURE 0.07 GRANS ABSOLUTE LAB SBANS 1.64-7.28 K/uL SEGS + 14.82 High Bands,Absolute LAB ALYM 1.16-3.51 K/uL Abs Lymph 1.83 LAB AMONO 0.22-0.87 K/uL Abs Toombs 1.05 High LAB AEOS 0.00-0.42 K/uL Abs Eos <0.04 LAB ABASO 0.00-0.15 K/uL Abs Baso 0.04 Performed By: #### CBCDFC, CA, CHM7, IPB, MGO, TROP #### [facility] [address] [place] [address] [place] [address] CALCIUM Collected: 05/03/2018 Status: F Source: [facility] 5:10 AM [facility] REPOSITORY TYPE CODE TESTS RESULT OUT OF REFERENCE UNITS RANGE LAB CA 8.6-10.5 mg/dL Low Calcium 8.5 Performed By: #### CBCDFC, CA, CHM7, IPB, MGO, TROP #### [facility] [address] [place] [address] [address] [place] [address] CHEM 7 Collected: 05/03/2018 Status: F Source: [facility] 5:10 AM [facility] REPOSITORY TYPE CODE TESTS RESULT OUT OF REFERENCE UNITS RANGE LAB BUN 7-22 mg/dL BUN 10 LAB NA 133-143 mmol/L Sodium 136 LAB K 3.5-5.0 mmol/L Potassium 4.4 LAB CL 98-108 mmol/L Chloride 102 LAB CO2 22-30 mmol/L Carbon Dioxide 25 LAB GLUC 70-99 mg/dL Glucose High 171 LAB CREA 0.50-1.20 mg/dL Creatinine 0.63 LAB GAP 7-17 mmol/L Anion Gap 13 LAB BC BUN/CREA Ratio 16 LAB OSMC 278-305 mOsm/kg Osmolality 290 (Calc) LAB GFR >60 mL/min/1.73 sqM Est GFR,non >60 Slovak LAB GFRA >60 mL/min/1.73 sqM Est GFR, >60 Performed By: #### CBCDFC, CA, CHM7, IPB, MGO, TROP #### [facility] [address] [place] [address] [place] [address] INORGANIC PHOSPHATE Collected: 05/03/2018 Status: F Source: [facility] 5:10 AM [facility] REPOSITORY TYPE CODE TESTS RESULT OUT OF REFERENCE UNITS RANGE LAB IP 2.2-4.6 mg/dL Inorg Phosphate 3.7 Performed By: #### CBCDFC, CA, CHM7, IPB, MGO, TROP #### [facility] [address] [place] [id number] [place] [address] [address] [place] [id number] MAGNESIUM Collected: 05/03/2018 Status: F Source: [facility] 5:10 AM [facility] REPOSITORY TYPE CODE TESTS RESULT OUT OF REFERENCE UNITS RANGE LAB MG 1.6-2.6 mg/dL Magnesium 2.4 Performed By: #### CBCDFC, CA, CHM7, IPB, MGO, TROP #### [facility] [address] [place] [address] [place] [address] TROPONIN I Collected: 05/03/2018 Status: F Source: [facility] 5:10 AM [facility] REPOSITORY TYPE CODE TESTS RESULT OUT OF REFERENCE UNITS RANGE LAB TROP <0.11 ng/mL Troponin I <0.01 Performed By: #### CBCDFC, CA, CHM7, IPB, MGO, TROP #### [facility] [address] [place] [address] [place] [address] CBC,PLATELET,DIFFERENTIAL - CCL Collected: Status: F Source: [facility] 05/02/2018 11:[address] [facility] REPOSITORY TYPE CODE TESTS RESULT OUT OF REFERENCE UNITS RANGE LAB WBC 3.99-11.19 K/uL WBC Count 14.53 High LAB RBC 3.91-5.04 M/uL RBC Count 4.87 LAB HGB 11.4-15.2 g/dL Hemoglobin 14.3 LAB HCT 34.9-44.3 % Hematocrit 44.8 High LAB MCV 79.6-97.7 fL Mean Cell 92.0 Volume LAB MCH 25.9-33.9 pg Mean Cell 29.4 Hgb LAB MCHC 31.4-35.9 g/dL Mean Cell 31.9 Hgb Conc LAB RDW 10.8-14.9 % RBC 13.9 Distribution LAB PLT 150-393 K/uL Platelet 302 Count LAB MPV 8.5-12.2 fL Mean 9.4 Platelet Volume LAB NRBC 0.0-0.2 /100 WBC NUCLEATED 0.0 RBC LAB DTYPE Electronic DIFFERENTIAL TYPE Differential LAB IGRE % IMMATURE 0.6 GRANS % LAB SEGS % NEUTROPHIL 69.9 SEGMENTED LAB LYM % LYMPHOCYTE 23.8 % LAB MON % MONOCYTE % 5.0 LAB EOS % *EOSINOPHIL 0.4 % LAB BASO % BASOPHIL % 0.3 LAB IGABS 0.00-0.08 K/uL IMMATURE 0.08 GRANS ABSOLUTE LAB SBANS 1.64-7.28 K/uL SEGS + 10.17 High Bands,Absolute LAB ALYM 1.16-3.51 K/uL Abs Lymph 3.46 LAB AMONO 0.22-0.87 K/uL Abs Toombs 0.72 LAB AEOS 0.00-0.42 K/uL Abs Eos 0.06 LAB ABASO 0.00-0.15 K/uL Abs Baso 0.04 Performed By: #### CBCDFC, C7C, IPB, MGO, TROP #### [facility] [address] [place] [address] [place] [address] CH7,CA Collected: 05/02/2018 Status: F Source: [facility] 11:10 PM [facility] [facility] REPOSITORY TYPE CODE TESTS RESULT OUT OF REFERENCE UNITS RANGE LAB BUN 7-22 mg/dL BUN 8 LAB NA 133-143 mmol/L Sodium 138 LAB K 3.5-5.0 mmol/L Potassium 4.1 LAB CL 98-108 mmol/L Chloride 104 LAB CO2 22-30 mmol/L Carbon Dioxide 24 LAB GLUC 70-99 mg/dL Glucose High 126 LAB CREA 0.50-1.20 mg/dL Creatinine 0.58 LAB GAP 7-17 mmol/L Anion Gap 14 LAB BC BUN/CREA Ratio 14 LAB CA 8.6-10.5 mg/dL Low Calcium 8.4 LAB [facility] 278-305 mOsm/kg Osmolality 289 (Calc) LAB GFR >60 mL/min/1.73 sqM Est GFR,non >60 Slovak LAB GFRA >60 mL/min/1.73 sqM Est GFR, >60 Performed By: #### CBCDFC, C7C, IPB, MGO, TROP #### [facility] [address] [place] [address] [facility] [address] [place] [id number] INORGANIC PHOSPHATE Collected: 05/02/2018 Status: F Source: [facility] 11:10 PM [facility] REPOSITORY TYPE CODE TESTS RESULT OUT OF REFERENCE UNITS RANGE LAB IP 2.2-4.6 mg/dL Inorg Phosphate 3.8 Performed By: #### CBCDFC, C7C, IPB, MGO, TROP #### [facility] [address] [place] [id number] [place] [address] [place] [address] MAGNESIUM Collected: 05/02/2018 Status: F Source: [facility] 11:10 PM [facility] REPOSITORY TYPE CODE TESTS RESULT OUT OF REFERENCE UNITS RANGE LAB MG 1.6-2.6 mg/dL High Magnesium 2.8 Performed By: #### CBCDFC, C7C, IPB, MGO, TROP #### [facility] [address] [place] [id number] [facility] [address] [place] [address] TROPONIN I Collected: 05/02/2018 Status: F Source: [facility] 11:10 [facility] REPOSITORY TYPE CODE TESTS RESULT OUT OF REFERENCE UNITS RANGE LAB TROP <0.11 ng/mL Troponin I <0.01 Performed By: #### SIERRADFC, C7C, IPB, MGO, TROP #### [facility] [address] [place] [address] [facility] [address] [place] [address] Observed: 05/02/2018 Status: I Source: [facility] RESPIRATORY CULTURE 9:50 PM [facility] REPOSITORY SOURCE: LUNG: Right Lower Lobe RESECTION COMMENT: Small Tissue MICROSCOPIC: Cytocentrifuge preparation Neutrophils, Rare Mononuclear cells present NO ORGANISMS SEEN RESULT: NO GROWTH DAY 1 REPORT STATUS: PENDING Performed By: #### RES #### [address] [id number] Blood Cultures processed at: [facility] Observed: 05/02/2018 Status: I Source: [facility] AFB: TISSUE -UHE 9:50 PM [facility] REPOSITORY SOURCE: LUNG: Right Lower Lobe RESECTION COMMENT: Small Tissue MICROSCOPIC: No Acid Fast Bacillus Seen :Examined by Fluorochrome Stain RESULT: PENDING REPORT STATUS: PENDING Performed By: #### AFBT #### [address] [address] Blood Cultures processed at: [facility] Observed: 05/02/2018 Status: I Source: [facility] ACID FAST CULTURE 9:12 PM [facility] REPOSITORY SOURCE: BRONCHIAL ALVEOLAR LAVAGE: COMMENT: Cloudy 25MLS MICROSCOPIC: No Acid Fast Bacillus Seen :Examined by Fluorochrome Stain RESULT: PENDING REPORT STATUS: PENDING Performed By: #### AFB #### [address] [address] Blood Cultures processed at: [facility] Observed: 05/02/2018 Status: I Source: [facility] RESPIRATORY CULTURE 9:12 PM [facility] REPOSITORY SOURCE: BRONCHIAL ALVEOLAR LAVAGE, QUANTITATIVE: COMMENT: Cloudy 25MLS MICROSCOPIC: Neutrophils, Moderate Local Materials, Heavy Red Blood Cells Present NO ORGANISMS SEEN RESULT: NO GROWTH DAY 1 REPORT STATUS: PENDING Performed By: #### RES #### [address] [address] Blood Cultures processed at: [facility] *POC GLUCOSE BATTERY Collected: 05/02/2018 Status: F Source: [facility] 5:21 PM [facility] REPOSITORY TYPE CODE TESTS RESULT OUT OF REFERENCE UNITS RANGE LAB GLUP 70-99 mg/dL High Glucose (poc 169 device) Result Comment: No BRAVE per RN: PATIENT TYPE LAB PCSTYP *POC Capillary SAMPLE TYPE Blood *POC GLUCOSE BATTERY Collected: 05/02/2018 Status: F Source: [facility] 12:42 PM [facility] REPOSITORY TYPE CODE TESTS RESULT OUT OF REFERENCE UNITS RANGE LAB GLUP 70-99 mg/dL High Glucose (poc 196 device) Result Comment: No BRAVE per RN: PATIENT TYPE LAB PCSTYP *POC Capillary SAMPLE TYPE Blood ECHOCARDIOGRAM Observed: 05/02/2018 Status: F Source: [facility] 11:49 AM [facility] REPOSITORY ? Technically difficult study due to body habitus ? Normal left ventricular size with low normal systolic function, EF 50-55%. ? Normal right ventricular size and function ? Mild pulmonic regurgitation ? Normal pulmonary pressures ? No pericardial effusion *POC GLUCOSE BATTERY Collected: 05/02/2018 Status: F Source: [facility] 6:41 AM [facility] REPOSITORY TYPE CODE TESTS RESULT OUT OF REFERENCE UNITS RANGE LAB GLUP 70-99 mg/dL High Glucose (poc 132 device) Result Comment: No BRAVE per RN: PATIENT TYPE LAB PCSTYP *POC Capillary SAMPLE TYPE Blood XR CHEST PORTABLE Observed: 05/02/2018 Status: F Source: [facility] 6:37 AM [facility] REPOSITORY EXAM: XR CHEST PORTABLE, 05/02/2018 06:26 AM COMPARISON: April 30, 2018 CLINICAL INDICATIONS: ILD RELEVANT CLINICAL HISTORY: FINDINGS: (Adequate technique) Redemonstration of bilateral predominantly basilar interstitial pulmonary fibrosis with interval improvement of airspace opacities in bilateral lower lung zones. No new pneumothorax. Stable cardiac silhouette and osseous structures. IMPRESSION: Improved airspace opacities in bilateral lower lung zones. GRAM (CBC AND Collected: 05/02/2018 Status: F Source: [facility] PLATELET) 1:47 AM [facility] REPOSITORY TYPE CODE TESTS RESULT OUT OF REFERENCE UNITS RANGE LAB WBC 3.99-11.19 K/uL WBC Count High 14.58 LAB RBC 3.91-5.04 M/uL RBC Count 4.22 LAB HGB 11.4-15.2 g/dL Hemoglobin 13.0 LAB HCT 34.9-44.3 % Hematocrit 37.5 LAB MCV 79.6-97.7 fL Mean Cell Volume 88.9 LAB MCH 25.9-33.9 pg Mean Cell Hgb 30.8 LAB MCHC 31.4-35.9 g/dL Mean Cell Hgb Conc 34.7 LAB RDW 10.8-14.9 % RBC Distribution 13.7 LAB PLT 150-393 K/uL Platelet Count 237 LAB MPV 8.5-12.2 fL Mean Platelet Volume 9.6 LAB NRBC 0.0-0.2 /100 WBC NUCLEATED RBC 0.0 Performed By: #### HEMOGC, CHM7, PTPTT #### [facility] [address] [place] [address] [facility] [address] [address] CHEM 7 Collected: 05/02/2018 Status: F Source: [facility] 1:47 AM [facility] REPOSITORY TYPE CODE TESTS RESULT OUT OF REFERENCE UNITS RANGE LAB BUN 7-22 mg/dL BUN 11 LAB NA 133-143 mmol/L Sodium 134 LAB K 3.5-5.0 mmol/L Potassium 3.7 LAB CL 98-108 mmol/L Chloride 100 LAB CO2 22-30 mmol/L Carbon Dioxide 23 LAB GLUC 70-99 mg/dL Glucose High 163 LAB CREA 0.50-1.20 mg/dL Creatinine 0.59 LAB GAP 7-17 mmol/L Anion Gap 15 LAB BC BUN/CREA Ratio 19 LAB [facility] 278-305 mOsm/kg Osmolality 284 (Calc) LAB GFR >60 mL/min/1.73 sqM Est GFR,non >60 Slovak LAB GFRA >60 mL/min/1.73 sqM Est GFR, >60 Performed By: #### HEMOGC, CONSTANTINM7, PTPTT #### [facility] [address] [address] PT*PTT Collected: 05/02/2018 Status: F Source: [facility] 1:47 AM [facility] REPOSITORY TYPE CODE TESTS RESULT OUT OF RANGE REFERENCE UNITS LAB PT 11.9-14.2 sec PT 14.1 LAB INR 0.9-1.1 INR 1.1 LAB PTT 24.0-34.3 sec High PTT 35.3 Performed By: #### HEMOGC, CHM7, PTPTT #### [facility] [address] [address] *POC GLUCOSE BATTERY Collected: 05/01/2018 Status: F Source: [facility] 8:42 PM [facility] REPOSITORY TYPE CODE TESTS RESULT OUT OF REFERENCE UNITS RANGE LAB GLUP 70-99 mg/dL High Glucose (poc 278 device) Result Comment: No BRAVE per RN: PATIENT TYPE LAB PCSTYP *POC Capillary SAMPLE TYPE Blood *POC GLUCOSE BATTERY Collected: 05/01/2018 Status: F Source: [facility] 4:55 PM [facility] REPOSITORY TYPE CODE TESTS RESULT OUT OF REFERENCE UNITS RANGE LAB GLUP 70-99 mg/dL High Glucose (poc 266 device) Result Comment: No BRAVE per RN: PATIENT TYPE LAB PCSTYP *POC Capillary SAMPLE TYPE Blood *POC GLUCOSE BATTERY Collected: 05/01/2018 Status: F Source: [facility] 1:23 PM [facility] REPOSITORY TYPE CODE TESTS RESULT OUT OF REFERENCE UNITS RANGE LAB GLUP 70-99 mg/dL High Glucose (poc 232 device) Result Comment: Notified RNread back No BRAVE per RN: PATIENT TYPE LAB PCSTYP *POC Capillary SAMPLE TYPE Blood Observed: 05/01/2018 Status: F Source: [facility] TYPE AND CROSS 12:30 PM [facility] REPOSITORY ABO/RH(D): O POSITIVE ANTIBODY SCREEN: NEGATIVE UNIT NUMBER: [id number] BLOOD COMPONENT TYPE: Apheresis Red Cells, Leukoreduced_[id number] STATUS OF UNIT: REL FROM ALLOC TRANSFUSION STATUS: OK TO TRANSFUSE CROSSMATCH RESULT: Electronically Compatible UNIT NUMBER: [id number] BLOOD COMPONENT TYPE: Apheresis Red Cells, Leukoreduced_[id number] STATUS OF UNIT: REL FROM ALLOC TRANSFUSION STATUS: OK TO TRANSFUSE CROSSMATCH RESULT: Electronically Compatible Performed By: #### XM #### [facility] [address] [place] [address] STREP PNEUMONIAE Collected: 05/01/2018 Status: F Source: [facility] ANTIGEN,URINE 12:02 PM [facility] REPOSITORY TYPE CODE TESTS RESULT OUT OF REFERENCE UNITS RANGE LAB PNEUMO Negative Strep Pneumoniae Negative Antigen,urine Performed By: #### PNEUMO #### [facility] [address] [place] [address] LEGIONELLA URINARY Collected: 05/01/2018 Status: F Source: [facility] AG,SEROGROUP 1 12:02 PM [facility] REPOSITORY TYPE CODE TESTS RESULT OUT OF REFERENCE UNITS RANGE LAB LEGION Negative Legionella Negative Urinary Ag,serogrou Performed By: #### LEGION #### [facility] [address] [place] [id number] [place] [address] [address] [place] [id number] SODIUM Collected: 05/01/2018 Status: F Source: [facility] 12:00 PM [facility] REPOSITORY TYPE CODE TESTS RESULT OUT OF REFERENCE UNITS RANGE LAB NA 133-143 mmol/L Low Sodium 131 Performed By: #### LASHA #### [facility] [address] [place] [address] [place] [address] HEMOGRAM (CBC AND Collected: 05/01/2018 Status: F Source: [facility] PLATELET) 4:02 AM [facility] REPOSITORY TYPE CODE TESTS RESULT OUT OF REFERENCE UNITS RANGE LAB WBC 3.99-11.19 K/uL WBC Count 7.37 LAB RBC 3.91-5.04 M/uL RBC Count 4.64 LAB HGB 11.4-15.2 g/dL Hemoglobin 13.7 LAB HCT 34.9-44.3 % Hematocrit 40.6 LAB MCV 79.6-97.7 fL Mean Cell Volume 87.5 LAB MCH 25.9-33.9 pg Mean Cell Hgb 29.5 LAB MCHC 31.4-35.9 g/dL Mean Cell Hgb Conc 33.7 LAB RDW 10.8-14.9 % RBC Distribution 13.9 LAB PLT 150-393 K/uL Platelet Count 189 LAB MPV 8.5-12.2 fL Mean Platelet Volume 9.4 LAB NRBC 0.0-0.2 /100 WBC NUCLEATED RBC 0.0 Performed By: #### HEMOGC, CHM7 #### [facility] [address] [place] [id number] [place] [address] [address] [place] [id number] CHEM 7 Collected: 05/01/2018 Status: F Source: [facility] 4:02 AM [facility] REPOSITORY TYPE CODE TESTS RESULT OUT OF REFERENCE UNITS RANGE LAB BUN 7-22 mg/dL BUN 8 LAB NA 133-143 mmol/L Sodium 135 LAB K 3.5-5.0 mmol/L Potassium 4.1 LAB CL 98-108 mmol/L Chloride 100 LAB CO2 22-30 mmol/L Carbon Dioxide 22 LAB GLUC 70-99 mg/dL Glucose High 228 LAB CREA 0.50-1.20 mg/dL Creatinine 0.54 LAB GAP 7-17 mmol/L Anion Gap 17 LAB BC BUN/CREA Ratio 15 LAB [facility] 278-305 mOsm/kg Osmolality 290 (Calc) LAB GFR >60 mL/min/1.73 sqM Est GFR,non >60 Slovak LAB GFRA >60 mL/min/1.73 sqM Est GFR, >60 Performed By: #### HEMOGC, CHM7 #### [facility] [address] [place] [address] [facility] [address] [place], [place] [address] XR CHEST PORTABLE Observed: 04/30/2018 Status: F Source: [facility] 7:33 PM [facility] REPOSITORY EXAM: XR CHEST PORTABLE, 04/30/2018 18:22 PM COMPARISON: January 01, 2018 CLINICAL INDICATIONS: Assess for PNA RELEVANT CLINICAL HISTORY: FINDINGS: (Adequate technique) Life Support Devices: None Chest Wall: Right axillary adenopathy. Sruthi: Normal Mediastinum: Normal Pleural Spaces: Trace bilateral effusions. No definite pneumothorax. Lungs: Bilateral airspace opacities have progressed in the lateral basilar left lung, but improved in the right base. Cardiac Silhouette: Normal, without overall or specific chamber enlargement, or abnormal calcification Thoracic Aorta: Normal Pulmonary Vessels: Normal, without PVH IMPRESSION: Bilateral airspace opacities are improved in the right base but increased in the left base. ,PLATELET,DIFFERENTIAL - CCL Collected: Status: F Source: [facility] 04/30/2018 5:51 PM [facility] REPOSITORY TYPE CODE TESTS RESULT OUT OF REFERENCE UNITS RANGE LAB WBC 3.99-11.19 K/uL WBC Count 12.74 High LAB RBC 3.91-5.04 M/uL RBC Count 4.46 LAB HGB 11.4-15.2 g/dL Hemoglobin 13.4 LAB HCT 34.9-44.3 % Hematocrit 38.8 LAB MCV 79.6-97.7 fL Mean Cell 87.0 Volume LAB MCH 25.9-33.9 pg Mean Cell 30.0 Hgb LAB MCHC 31.4-35.9 g/dL Mean Cell 34.5 Hgb Conc LAB RDW 10.8-14.9 % RBC 13.7 Distribution LAB PLT 150-393 K/uL Platelet 234 Count LAB MPV 8.5-12.2 fL Mean 9.6 Platelet Volume LAB NRBC 0.0-0.2 /100 WBC NUCLEATED 0.0 RBC LAB DTYPE Electronic DIFFERENTIAL TYPE Differential LAB IGRE % IMMATURE 0.3 GRANS % LAB SEGS % NEUTROPHIL 70.3 SEGMENTED LAB LYM % LYMPHOCYTE 20.0 % LAB MON % MONOCYTE % 7.1 LAB EOS % *EOSINOPHIL 2.0 % LAB BASO % BASOPHIL % 0.3 LAB IGABS 0.00-0.08 K/uL IMMATURE 0.04 GRANS ABSOLUTE LAB SBANS 1.64-7.28 K/uL SEGS + 8.96 High Bands,Absolute LAB ALYM 1.16-3.51 K/uL Abs Lymph 2.55 LAB AMONO 0.22-0.87 K/uL Abs Toombs 0.90 High LAB AEOS 0.00-0.42 K/uL Abs Eos 0.25 LAB ABASO 0.00-0.15 K/uL Abs Baso 0.04 Performed By: #### CBCDFC, CHM7, PTPTT #### [facility] [place] [address] [place] [address] CHEM 7 Collected: 04/30/2018 Status: F Source: [facility] 5:51 PM [facility] REPOSITORY TYPE CODE TESTS RESULT OUT OF REFERENCE UNITS RANGE LAB BUN 7-22 mg/dL BUN 7 LAB NA 133-143 mmol/L Low Sodium 126 LAB K 3.5-5.0 mmol/L Low Potassium 3.4 LAB CL 98-108 mmol/L Low Chloride 95 LAB CO2 22-30 mmol/L Carbon Dioxide 22 LAB GLUC 70-99 mg/dL Glucose High 132 LAB CREA 0.50-1.20 mg/dL Creatinine 0.51 LAB GAP 7-17 mmol/L Anion Gap 12 LAB BC BUN/CREA Ratio 14 LAB [facility] 278-305 mOsm/kg Low Osmolality 266 (Calc) LAB GFR >60 mL/min/1.73 sqM Est GFR,non >60 Slovak LAB GFRA >60 mL/min/1.73 sqM Est GFR, >60 Performed By: #### CBCDFC, CHM7, PTPTT #### [facility] [address] [place] [id number] [place] [address] [address] [place] [address] PT*PTT Collected: 04/30/2018 Status: F Source: [facility] 5:51 PM [facility] REPOSITORY TYPE CODE TESTS RESULT OUT OF RANGE REFERENCE UNITS LAB PT 11.9-14.2 sec High PT 14.6 LAB INR 0.9-1.1 INR 1.1 LAB PTT 24.0-34.3 sec High PTT 36.7 Performed By: #### SIERRADFC, CHM7, PTPTT #### [facility] [address] [place] [id number] [place] [address] [address] [place] [id number] STRONGYLOIDE IGG SER Collected: 04/28/2018 Status: F Source: [place] 4:33 PM [facility] REPOSITORY TYPE CODE TESTS RESULT OUT OF REFERENCE UNITS RANGE LAB STRGS <=0.9 IV Strongyloide IgG Ser 0.4 Result Comment: (NOTE) INTERPRETIVE INFORMATION: Strongyloides Ab, IgG by MAHENDRA 0.9 IV or less....... Negative - No significant level of Strongyloides IgG antibody detected. 1.0 IV................Equivocal - The Strongyloides IgG antibody result is borderline and therefore inconclusive. Recommend retesting the patient in 2-4 weeks, if clinically indicated. 1.1 IV or greater ... Positive - IgG antibodies to Strongyloides detected, which may suggest current or past infection. False-positive results may occur with prior exposure to other helminth infections. Testing low-prevalence populations may also result in false-positive results. Performed by [facility], [address] [place], [place] [id number] [email or web address], Chance Barrera MD, Lab. Director Performed By: #### STRSER #### [facility] [address] [place], [place] [id number] [phone] PROGRESS Observed: 04/28/2018 Status: COMPLETED Source: [place] 3:28 PM [facility] REPOSITORY HNO ID: [id number] Author: Daya Gallagher Service: (none) Author Type: Physician Type: Progress Notes Filed: 04/28/2018 6:24 PM Note Text: Reason for Visit Patient presents with: Physical: sob Jason Arroyo is a 77 year old female who presents here today for Above Complaints.. Health Maintenance DTAP,TDAP,TD(1 - Tdap) DIABETES SCREEN INFLUENZA(1) HPI Seeing patient after 3 years PMhx of breast cancern with double mastectomy, s/p chemo with adriamycin and cytoxan., she was other langston healthy until 6 months ago when she noticed some sob ... end of December 2017 she went for a follow up at [facility] for her breast cancer she reported being SOB and they were concerned because she was coughing, ct scan was done which showed some kind of pnemonia, they did not call for results, she started getting worse on the weekend, so they went to the ER. She was admitted due to infiltrates on the ct which was treated empirically as pneumonia during hospital stay Bronchoscopy was done which was not conclusive, BOOP was suggested so treated with prednisone but that did not help her, CT scan follow up showed she was worse. With cotton candy picture. She is seeing Pulmonary at [facility]. . Apparently a lung biopsy is being advised. But they were hesitant about it and did not know what to do and are looking to me for some input. Reviewed the ct scans that they brought in, clinically she seems to be declining rapidly , as she reports as per her husbands pulse ox hse is saturating at 88 to 92 percent currently not on oxygen and her and her cts has worsened despite prednisone, Also there are 3 lines of thought, ILDvs, cancer Vs, eosinophillic pnemonitis. Discussed with her that they should pursue a lung biospy for definitive answer and proceed with treatment. She is currently on abx, and prednisone. Today patient is with her very loving daughter and they seem to be a little afraid of what is going on but were willing to take the steps necessary, they also were inquiring about the main campus and to shift treament, we noted to them they should not delay in getting the lung biopsy so to proceed with [facility] where she had all her treatment. No problem-specific Assessment AND Plan notes found for this encounter. PAST MEDICAL HISTORY Diagnosis Date - Breast cancer (HCC) Oncologist--Dr. Mckeon; surgeon--Dr. Mason Gonzalez ([facility]) - Chronic rhinitis 05/08/2005 - Contact dermatitis and other eczema, due to unspecified cause 05/08/2005 itchy, eczematous - Esophageal reflux 05/08/2005 - Generalized osteoarthrosis, unspecified site 05/08/2005 - Scarlet fever PAST SURGICAL HISTORY Procedure Laterality Date - Bilateral mastectomy 07/05/2008 Dr. Gonzalez ([facility]) - COLONOS W/REM POLYP SNARE 09/16/12 - COLONOSCOP W/ OR W/O BRSH SPEC 06/28/14 Colonoscopy - EGD W/O BRSH SPECIMEN W/BX 09/16/12 - PAST SURGICAL HISTORY OF jaw surgery for tmj - REMOVAL GALLBLADDER 1963 Cholecystectomy - REMV CATARACT EXTRACAP,INSERT LENS Cataract Removal, bilat FAMILY HISTORY Problem Relation Age of Onset - other (rheumatoid athritis [Other]) Mother - Heart Father - Heart Maternal Grandmother - Heart Maternal Grandfather - Heart Paternal Grandmother - Heart Paternal Grandfather - Breast Cancer Sister - Diabetes Father Social History Substance Use Topics - Smoking status: Never Smoker - Smokeless tobacco: Never Used - Alcohol use No Past medical history, appointments, medications, allergies reviewed. Pertinent Lab/Diagnostic Studies are reviewed and discussed today Current Outpatient Prescriptions: - alpha tocopheryl acetate (VITAMIN E) 400 unit capsule - MEDICATION, NON-DATABASE - omeprazole (PRILOSEC) 20 mg capsule - cholecalciferol, Vitamin D3, (VITAMIN D3) 50,000 unit cap capsule - VITAMIN B COMPLEX (B COMPLEX ORAL) - Ibuprofen 200 mg ORAL Cap - multivit-min/devyn/biotin/d3/fa(BIOTIN PLUS-CALCIUM AND VIT D3 200 MG-450 MCG-400 UNIT TAB) - THERAPEUTIC MULTIVITAMIN TAB - OTC NUTRITIONAL SUPPLEMENT - FISH OIL 1,200 MG-144 MG-216 MG CAP - LNEDJOGFEJA-WNH-XKVDOKICM-VITC CAP Review of Systems CONSTITUTIONAL: No fevers, chills night sweats, unintended weight loss CARDIOVASCULAR: No chest pain, dyspnea, palpitations, orthopnea, PND, ankle edema. PULM: No dyspnea, unexplained cough. GI: No dysphagia/odynophagia, problematic reflux, constipation, diarrhea, changes in stool habits, hematochezia, melena. : No new urinary complaints, including dysuria, gross hematuria or pyuria. NEURO: No new balance problems, peripheral weakness/paresthesias or numbness of concern. Physical Exam BP 116/78 Pulse (!) 132 Resp 22 Ht 160 cm (5' 3) Wt 64.9 kg (143 lb) SpO2 90% BMI 25.33 kg/m? General appearance: Well appearing, alert, in no acute distress, well nourished. Skin: Skin color, texture, turgor normal, no suspicious rashes or lesions Head: Normocephalic, no masses, lesions, tenderness or abnormalities Eyes: Anicteric sclera. Pupils are equally round and reactive to light. Extraocular movements are intact. Lungs: Lungs clear to auscultation. No wheezing, rhonchi, rales Heart: RRR without murmur, gallop, or rubs. Extremities: No deformities, edema, skin discoloration, clubbing or cyanosis. Good capillary refill. ASSESSMENT/PLAN: 1. ILD (interstitial lung disease) (HCC) - ICD9: 515, ICD10: J84.9 (primary diagnosis) Discussed the need for oxygen, and for dong VATS ,and getting lung biopsy, that they should proceed carrol with the CTS and pulm to get it done to get a biopsy as she seems to be deteriorating quickly. 2. Cough - ICD9: 786.2, ICD10: R05 3. Eosinophilia - ICD9: 288.3, ICD10: D72.1 - STRONGYLOIDES IGG BL 4. Low oxygen saturation - ICD9: 790.91, ICD10: R79.81 Spent more than 40 mins with the patient as they are in a precarious situation DAYA GALLAGHER MD CARDIOLOGY VISIT Observed: 04/28/2018 Status: F Source: [facility] REPORT 3:20 PM [facility] REPOSITORY [facility] [facility] [facility]. [address] [place] [address] OFFICE VISIT Date of Service: 04/28/18 MR#: [id number] Acct: [id number] Name: JASON ARROYO Rep #: [id number] : 1940 Provider: Shelton Hopper MD Age/Sex: 77/F [place] [facility] [place]: Signed HPI HPI Details: JASON ARROYO, is a 77 F who presents to the office today for Outpatient cardiovascular follow up based upon her concerns of underlying shortness of breath/dyspnea on exertion and tachycardia superimposed upon an ongoing concern of a new diagnosis with respect to underlying interstitial pulmonary disease and cryptogenic pneumonia. She states that she has been having progressive shortness of breath/dyspnea on exertion, noting she has had an elevated heart rate, and undergoing evaluation by her pulmonology group at [facility]. She has had outpatient visits there as well as outpatient CT scans performed. CT scans have demonstrated findings compatible with underlying interstitial pulmonary disease and cryptogenic pneumonia. Based upon the CT scan report she brings with her there does not appear to be any obvious mention of increased pulmonary vascularity, pulmonary edema, or CHF. She states she has been treated with antibiotics and corticosteroids. She is undergone evaluation with a bronchoscopy which was indeterminate. She has been recommended for a thorascopic biopsy for which she meets with a thoracic surgeon next week period however she is concerned about proceeding this manner based upon concerns of anesthesiology with respect to her underlying pulmonary disease process. She also has a followup meeting with her weaver needle loom in early February. She denies any obvious ongoing chest discomfort. She has had no obvious issues with respect a classic orthopnea or PND. There has been no near syncope or syncope. She has been short of breath and dyspneic. She has had a cough with yellowish sputum production. She states she has noted her oxygen saturations at home has been as low as 88%. She has actually used some of her 's O2 nasal cannula disease would make a difference in how she felt and states that she has actually felt like she was breathing somewhat better. However based upon her ongoing issues she has undergone recent laboratory studies demonstrated a negative BNP level of 14. She did have a Holter monitor performed. Based on the Holter monitor it appears she has underlying sinus tachycardia as well as PACs and brief episodes up to approximately 5 beats of what appeared to be an underlying ectopic atrial rhythm/tachycardia, and rare PVCs. She had no wide-complex runs. She also had a transthoracic echocardiogram performed recently. Her left ventricle demonstrated borderline low LV systolic function with an estimated LVEF of 50%. She was noted to have a global longitudinal strain pattern -13: Abnormal. She was noted to have mild MR/TR/AR. Her estimated RV systolic pressure was 20 mmHg. There was no evidence of decreased her Bystolic compliance. Intake Vital Signs04/28/18 Body Mass Index (BMI) 25.3 04/28/18 Height 5 ft 3 in 04/28/18 Weight: 143 lb 04/28/18 Body Mass Index (BMI) 25.3 04/28/18 Blood Pressure 120/76 Intake Visit Reasons: PT REQUESTED Allergies codeine Allergy (Verified 04/28/18 13:35) Unknown latex Allergy (Verified 04/28/18 13:35) Unknown Medications Omeprazole [Prilosec] 20 mg PO DAILY PRN PRN 01/29/17 [History Confirmed 04/28/18] ascorbic acid (vitamin C) 500 mg capsule 500 mg PO DAILY cap 03/17/18 [History Confirmed 04/28/18] calcium carbonate-vitamin D3 600 mg (1,500 mg)-400 unit capsule 1,500 cap PO DAILY cap 03/17/18 [History Confirmed 04/28/18] cholecalciferol (vitamin D3) 400 unit capsule 800 unit PO DAILY cap 03/17/18 [History Confirmed 04/28/18] multivitamin tablet 1 tab PO DAILY 03/17/18 [History Confirmed 04/28/18] turmeric 400 mg capsule 400 mg PO DAILY cap 03/17/18 [History Confirmed 04/28/18] vitamin B complex tablet 1 tab PO DAILY 03/17/18 [History Confirmed 04/28/18] vitamin E 200 unit capsule 200 unit PO DAILY 03/17/18 [History Confirmed 04/28/18] furosemide 20 mg tablet 20 mg PO DAILY #30 tab 04/28/18 [Rx Confirmed 04/28/18] magnesium 200 mg tablet 200 mg PO DAILY 04/28/18 [History Confirmed 04/28/18] potassium chloride ER 20 mEq tablet,extended release(part/cryst) 20 meq PO DAILY #30 tab 04/28/18 [Rx Confirmed 04/28/18] [facility] Medical History Chest pain (Chronic) Angina pectoris (Chronic) Dyspnea on exertion (Chronic) Palpitations (Acute) Breast cancer (Chronic) Surgical History History of cholecystectomy (Chronic) S/P mastectomy, bilateral (Chronic) Family History Mother Valvular heart disease Sister Valvular heart disease Social History Smoking Status: Never smoker second hand exposure: No alcohol intake: current alcohol intake frequency: holidays/special occasions only Alcohol type: wine substance use type: other details: None, does not use what type of physical activity do you participate in: none seatbelt use: always do you feel safe at home: Yes ROS Const Const: Positive for fatigue (increased); negative for weakness, weight gain, weight loss, frequent falls or excessive sweating Eyes Eyes: Negative for change in vision, blurry vision or transient loss of vision ENT ENT: Negative for dizziness or balance problems Cardio Chest Pain: No Palpitations: Yes (x 1 episode of pounding heart; pt reports HR 120-150 with pulse ox) feels like its: pounding Edema: None Muscle aches with walking: None Resp Respiratory: Positive for SOB with activity (increased), SOB at rest (increased) and Cough (productive cough with clear to yellow sputum) Additional Details: Patient reports that she just finished tapering dose of prednisone last week; Saturday GI GI: Negative vomiting or vomiting blood/hematemesis : Negative for hematuria Musc Musc: Positive for muscle aches/ myalgia (generalized aches) and joint pain (Rt hip); negative for balance problems or muscle weakness Skin Skin: Negative non-healing lesions or rash Neuro Neuro: Positive for lightheadedness (once in a great while while doing activity; brief); negative for weakness, blurry vision, dizziness, frequent falls or orthostatic symptoms [place] Hematologic/Lymphatic: Negative for easy bleeding Endo Endo: Positive for fatigue (increased); negative for excessive sweating Psych Psych: Negative for anxiety or depression Allergy Allergy/Immunology: Negative for hives, Negative for rash Cardiology Exam Const Appearance: cooperative, healthy appearing, comfortable, no acute distress, well developed and well groomed Nutritional Appearance: well nourished Orientation: alert, awake and oriented x3 Head Head: normal to inspection, normocephalic and atraumatic Ears: hearing grossly normal bilaterally Nose: external nose normal Face and Sinus: face symmetric Mouth: oral mucosae normal Teeth and gingiva: fair dentition Eyes Eyelids: eyelids normal Conjunctivae: conjunctivae normal Pupils: PERRL EOM: EOM intact bilaterally Neck Neck: normal visual inspection and full ROM Carotids: normal carotid upstroke Chest Chest inspection: normal inspection of the chest Auscultation: Bilateral: Crackles (dry sounding) Cardio Palpation: normal PMI Rate: regular rate Rhythm: regular rhythm Heart sounds: S1 normal, S2 normal and PMI non distended GI GI: normal to inspection, soft and bowel sounds present Neuro General: alert, awake, oriented x3, gait normal and no focal motor deficits Skin Skin: no rashes or lesions noted Extremities Pulses: Normal: Right Femoral Pulse, Left Femoral Pulse, Right Dorsalis Pedis Pulse, Left Dorsalis Pedis Pulse, Right Posterior Tibial Pulse, Left Posterior Tibial Pulse, Right Radial Pulse, Left Radial Pulse Lower Extremity Edema: None: Bilateral Psych Psychological: normal affect Assessment AND Plan 1. Dyspnea on exertion R06.09 Plan At the present time the patient does have significant dyspnea on exertion. Her pulmonary evaluation suggests bilateral dry-Velcro type- rales. She also has bilateral inspiratory/expiratory wheezing. Her BNP level was negative. Her Holter monitor and echocardiogram are as noted above. At the present time there is concern that her dyspnea on exertion appears to be likely noncardiac and related to her underlying pulmonary disease process. This may be driving her heart rate up as a secondary response. From a cardiac standpoint, noting that it is possible even with her pulmonary disease process such she may be holding onto some fluid from a pulmonary standpoint she was given prescription for furosemide at 20 mg a day with potassium supplement 20 mEq a day with plans for followup BMP. 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 This was discussed with the patient and her daughter. They were both agreeable to this. Orders Orders: 2. Palpitations R00.2 Plan Her heart rate has been elevated. Again there is concern that this is a secondary phenomenon based on her underlying pulmonary disease process. She will continue evaluation care as noted above. She will continue her pulmonary evaluation. Orders Orders: 3. Premature atrial complexes I49.1 Plan She does have a history of PACs and PVCs. She does not appear to be symptomatic with them at this time. She will continue to be followed. Orders Orders: 4. Premature ventricular beat I49.3 Plan She has a history of PVCs as noted above. Again she will continue to be followed. Orders Orders: 5. CAD in unga artery I25.10 Plan She does have a history of CAD. Based on her idcqqmlo64/25/2017 she has mild luminal irregularities. She will need to continue risk factor evaluation and care. She has been somewhat hesitant to proceed with any medical therapy, such as statins, etc. Plan Detail Other Medications New: Follow Up 6 Weeks (with PFM) Coding Level of Care Code Off vis,est,level 4 Diagnoses Dyspnea on exertion R06.09 Palpitations R00.2 Premature atrial complexes I49.1 Premature ventricular beat I49.3 CAD in unga artery I25.10 Coding Level of Care Code Off vis,est,level 4 Diagnoses Dyspnea on exertion R06.09 Palpitations R00.2 Premature atrial complexes I49.1 Premature ventricular beat I49.3 CAD in unga artery I25.10 Supplemental Info Supplemental Information Transthoracic echocardiogram: 04/25/2018 Interpretation Summary The study was technically difficult. Left ventricular systolic function is lower limits of normal. The estimated ejection fraction is 50 %. The global longitudinal strain = -13% (abnormal). Mild (1+) mitral valve insufficiency. Mild tricuspid valve insufficiency. Mild (1+) pulmonic valve insufficiency. Right ventricular systolic pressure estimated to be 20 mmHg. No evidence for diastolic dysfunction. Cardiac catheterization: 01/30/2017 DOMINANCE: Left Dominant LEFT HEART ASSESSMENT Left Ventricular Ejection Fraction: by LV Gram 65 % Normal LV wall motion Normal Left Ventricular systolic function Elevated Left Ventricular End Diastolic Pressure LVEDP: 23 mmHg LEFT MAIN: Angiographically normal LEFT ANTERIOR DESCENDING ARTERY: PROX LAD: Mild luminal irregularities CIRCUMFLEX ARTERY: Angiographically normal RIGHT CORONARY ARTERY: Angiographically normal VALVE FINDINGS: Normal Aortic Valve function Normal Mitral Valve function AORTIC ROOT: Angiographically normal Labs LDL Cholesterol 106 mg/dL (0-130) 01/29/17 HDL Cholesterol 46 mg/dL (40-) 01/29/17 Triglycerides 102 mg/dL (-199) 01/29/17 VLDL Cholesterol 20 mg/dL (5-40) 01/29/17 Diagnostics Electrocardiogram 04/28/18 Echocardiogram 04/25/18 Chest X-Ray 01/29/17 04/28/18 1520 <Electronically signed by Shelton Hopper MD> Date Shelton Hopper MD Cosign Signature: Date (if applicable) CC: Daya Gallagher MD CNOV Observed: 04/28/2018 Status: COMPLETED Source: [place] 3:00 PM [facility] REPOSITORY Office Visit (INTMWS) JASON ARROYO ([id number]) 1940 F Date Time Provider Department 04/28/18 3:00 PM DAYA GALLAGHER INTMWS During your visit today, we recorded the following information about you: Pulse Respiration Blood pressure Weight 132/minute 22/minute 116/78 64.9 kg Height 1.6 m DAYA GALLAGHER MD 04/28/2018 6:24 PM Signed Reason for Visit Patient presents with: Physical: sob Jason Arroyo is a 77 year old female who presents here today for Above Complaints.. Health Maintenance DTAP,TDAP,TD(1 - Tdap) DIABETES SCREEN INFLUENZA(1) HPI Seeing patient after 3 years PMhx of breast cancern with double mastectomy, s/p chemo with adriamycin and cytoxan., she was other langston healthy until 6 months ago when she noticed some sob ... end of December 2017 she went for a follow up at [facility] for her breast cancer she reported being SOB and they were concerned because she was coughing, ct scan was done which showed some kind of pnemonia, they did not call for results, she started getting worse on the weekend, so they went to the ER. She was admitted due to infiltrates on the ct which was treated empirically as pneumonia during hospital stay Bronchoscopy was done which was not conclusive, BOOP was suggested so treated with prednisone but that did not help her, CT scan follow up showed she was worse. With cotton candy picture. She is seeing Pulmonary at [facility]. . Apparently a lung biopsy is being advised. But they were hesitant about it and did not know what to do and are looking to me for some input. Reviewed the ct scans that they brought in, clinically she seems to be declining rapidly , as she reports as per her husbands pulse ox hse is saturating at 88 to 92 percent currently not on oxygen and her and her cts has worsened despite prednisone, Also there are 3 lines of thought, ILDvs, cancer Vs, eosinophillic pnemonitis. Discussed with her that they should pursue a lung biospy for definitive answer and proceed with treatment. She is currently on abx, and prednisone. Today patient is with her very loving daughter and they seem to be a little afraid of what is going on but were willing to take the steps necessary, they also were inquiring about the main campus and to shift treament, we noted to them they should not delay in getting the lung biopsy so to proceed with [facility] where she had all her treatment. No problem-specific Assessment AND Plan notes found for this encounter. PAST MEDICAL HISTORY Diagnosis Date - Breast cancer ([facility]) Oncologist--Dr. Mckeon; surgeon--Dr. Mason Gonzalez ([facility]) - Chronic rhinitis 05/08/2005 - Contact dermatitis and other eczema, due to unspecified cause 05/08/2005 itchy, eczematous - Esophageal reflux 05/08/2005 - Generalized osteoarthrosis, unspecified site 05/08/2005 - Scarlet fever PAST SURGICAL HISTORY Procedure Laterality Date - Bilateral mastectomy 07/05/2008 Dr. Gonzalez ([facility]) - COLONOS W/REM POLYP SNARE 09/16/12 - COLONOSCOP W/ OR W/O [facility]SH SPEC 06/28/14 Colonoscopy - EGD W/O [facility] SPECIMEN W/BX 09/16/12 - PAST SURGICAL HISTORY OF jaw surgery for tmj - REMOVAL GALLBLADDER 1963 Cholecystectomy - REMV CATARACT EXTRACAP,INSERT LENS Cataract Removal, bilat FAMILY HISTORY Problem Relation Age of Onset - other (rheumatoid athritis [Other]) Mother - Heart Father - Heart Maternal Grandmother - Heart Maternal Grandfather - Heart Paternal Grandmother - Heart Paternal Grandfather - Breast Cancer Sister - Diabetes Father Social History Substance Use Topics - Smoking status: Never Smoker - Smokeless tobacco: Never Used - Alcohol use No Past medical history, appointments, medications, allergies reviewed. Pertinent Lab/Diagnostic Studies are reviewed and discussed today Current Outpatient Prescriptions: - alpha tocopheryl acetate (VITAMIN E) 400 unit capsule - MEDICATION, NON-DATABASE - omeprazole (PRILOSEC) 20 mg capsule - cholecalciferol, Vitamin D3, (VITAMIN D3) 50,000 unit cap capsule - VITAMIN B COMPLEX (B COMPLEX ORAL) - Ibuprofen 200 mg ORAL Cap - multivit-min/devyn/biotin/d3/fa(BIOTIN PLUS-CALCIUM AND VIT D3 200 MG-450 MCG-400 UNIT TAB) - THERAPEUTIC MULTIVITAMIN TAB - OTC NUTRITIONAL SUPPLEMENT - FISH OIL 1,200 MG-144 MG-216 MG CAP - RPXZDRRVJLE-QQZ-WKUPGGJSI-VITC CAP Review of Systems CONSTITUTIONAL: No fevers, chills night sweats, unintended weight loss CARDIOVASCULAR: No chest pain, dyspnea, palpitations, orthopnea, PND, ankle edema. PULM: No dyspnea, unexplained cough. GI: No dysphagia/odynophagia, problematic reflux, constipation, diarrhea, changes in stool habits, hematochezia, melena. : No new urinary complaints, including dysuria, gross hematuria or pyuria. NEURO: No new balance problems, peripheral weakness/paresthesias or numbness of concern. Physical Exam BP 116/78 Pulse (!) 132 Resp 22 Ht 160 cm (5' 3) Wt 64.9 kg (143 lb) SpO2 90% BMI 25.33 kg/m? General appearance: Well appearing, alert, in no acute distress, well nourished. Skin: Skin color, texture, turgor normal, no suspicious rashes or lesions Head: Normocephalic, no masses, lesions, tenderness or abnormalities Eyes: Anicteric sclera. Pupils are equally round and reactive to light. Extraocular movements are intact. Lungs: Lungs clear to auscultation. No wheezing, rhonchi, rales Heart: RRR without murmur, gallop, or rubs. Extremities: No deformities, edema, skin discoloration, clubbing or cyanosis. Good capillary refill. ASSESSMENT/PLAN: 1. ILD (interstitial lung disease) (HCC) - ICD9: 515, ICD10: J84.9 (primary diagnosis) Discussed the need for oxygen, and for dong VATS ,and getting lung biopsy, that they should proceed carrol with the CTS and pulm to get it done to get a biopsy as she seems to be deteriorating quickly. 2. Cough - ICD9: 786.2, ICD10: R05 3. Eosinophilia - ICD9: 288.3, ICD10: D72.1 - STRONGYLOIDES IGG BL 4. Low oxygen saturation - ICD9: 790.91, ICD10: R79.81 Spent more than 40 mins with the patient as they are in a precarious situation DAYA GALLAGHER MD Referring Provider: SELF [200] Allergies As of Date: 04/28/2018 Noted Allergy Reaction CODEINE 03/02/2005 8 - GI Upset Comments: States that Percocet, which she took at one time for migraine headaches made her nauseated and vomit. She does not have a true allergy to codeine. Fatuma Romero, KINGA DEMEROL (MEPERIDINE (PF)) 03/02/2005 8 - GI Upset FLONASE (FLUTICASONE PROPIONATE) 05/08/2005 5 - Intolerance Comments: Irritated nose LATEX 01/04/2006 7 - Swelling Comments: after wearing mouth guard after tmj surgery mouth swelled. no b/ps omn rt arm [Other] 06/29/2009 Date Reviewed: 04/28/2018 Reviewed by: Misty Zelaya) SEBASTIÁN Rose - Fully Assessed Reason for Visit: Physical [83] Cmt: sob Reason For Visit History Recorded Primary Visit Diagnosis:ILD (interstitial lung disease) ([facility]) [J84.9] Other Visit Diagnoses:Cough [R05] Eosinophilia [D72.1] Low oxygen saturation [R79.81] Order(s):STRONGYLOIDES IGG BL [SQSTRSER] Order #: [id number] FUTURE Prescriptions as of 04/28/2018 Sig: VITAMIN E 400 UNIT CAPSULE Take 400 Units by mouth once * MEDICATION, NON-DATABASE Tumeric OMEPRAZOLE 20 MG CAPSULE,ESTELA* Take 1 capsule by mouth as ne* CHOLECALCIFEROL (VITAMIN D3) * Take 1 capsule by mouth twice* B COMPLEX ORAL Take by mouth. * IBUPROFEN 200 MG CAPSULE Take by mouth as needed. * BIOTIN PLUS-CALCIUM AND VIT D* Take one(1) tablet daily. * THERAPEUTIC MULTIVITAMIN TABL* Take one(1) tablet daily. OTC NUTRITIONAL SUPPLEMENT Immune boost pill * FISH OIL 1,200 MG-144 MG-216 * Take one(1) tablet two(2) freddy* * UVHCISJRRSK-GDU-IMMZLHMTL-VIT* Take one(1) tablet daily. Problem List As Of Date 04/28/2018 Noted Resolved Chronic rhinitis [J31.0] INVALID FOR*02/11/2014 More... Generalized osteoarthrosis, unspecified site [M*INVALID FOR*02/11/2014 Esophageal reflux [K21.9] INVALID FOR* More... Contact dermatitis and other eczema, due to uns*INVALID FOR* More... Enthesopathy of hip region [M76.899] INVALID FOR* More... Breast cancer (HCC) [C50.919] INVALID FOR* More... Osteopenia [M85.80] INVALID FOR* More... Pain in joint, pelvic region and thigh [M25.559]INVALID FOR* More... Back pain [M54.9] INVALID FOR* More... Encounter Status:Closed by DAYA GALLAGHER MD on 04/28/18 12 LEAD EKG PERFORMED Observed: 04/28/2018 Status: F [place] [facility] [place] [facility] REPOSITORY [address] [address] 12 Lead [place] [facility] [place] 04/28/18 1356 MR#: [id number] Acct: [id number] Name: JASON ARROYO Rep #: [id number] : 1940 77 From: Shelton Hopper MD Attending Dr: Shelton Hopper MD Status: DEP [facility] Ordering Dr: Shelton Hopper MD Date: 04/28/18 [place] [facility] [place]: F C Admitted: [facility] [place] [facility] [place] ECG Report Interpretation Somatic / Motion ArtifactSinus Tachycardia Nonspecific T-abnormality. ABNORMAL Electronically signed on 04/28/2018 at 16:47 by Shelton Hopper [employer] Version [id number] 04/28/18 4960 Date Shelton Hopper MD CC: Daya Gallagher MD Date Dictated: 04/28/181355 Date Transcribed: 04/28/181355 Construction Ironworker: PM Signed ECHOCARDIOGRAM COMPLETE Observed: 04/25/2018 Status: F Source: [place] 5:09 PM [facility] REPOSITORY [facility] Cardiovascular Services [address] [place] [address] Echo Complete 04/25/18 1423 MR#: [id number] Acct: [id number] Name: JASON ARROYO Rep #: [id number] : 1940 77 From: Shelton Hopper MD Attending Dr: Status: REG CLI Ordering Dr: OMI [place] Date: 04/25/18 Location: [facility] Sex: F C Admitted: Reason For Study: TACHYCARDIA Procedure This was a 2D Doppler, Color Flow transthoracic echocardiogram. Myocardial strain analysis was performed in this exam to aid in the assessment of cardiac function. The study was technically difficult. Exam performed in department. Left Ventricle Normal LV size. Left ventricular systolic function is lower limits of normal. The estimated ejection fraction is 50 %. The global longitudinal strain = -13% (abnormal). No evidence for diastolic dysfunction. No regional wall motion abnormalities noted. Right Ventricle Normal RV size. Normal systolic function. Atria Normal left atrium. Normal right atrium. No doppler evidence for ASD. Mitral Valve There is no mitral annular calcification. Normal mitral valve. Mild (1+) mitral valve insufficiency. Tricuspid Valve Normal tricuspid valve. Mild tricuspid valve insufficiency. Right ventricular systolic pressure estimated to be 20 mmHg. Aortic Valve Trisinus/trileaflet aortic valve. Normal aortic valve. Pulmonic Valve The pulmonic valve is not well visualized. Mild (1+) pulmonic valve insufficiency. Great Vessels Normal sized aortic root. Pericardium/Pleural No pericardial effusion. MMode/2D Measurements AND Calculations LVIDd: 3.0 cm IVSd: 0.85 cm Ao root diam: 3.7 cm LVIDs: 2.3 cm LVPWd: 0.93 cm RVDd: 2.6 cm FS: 24.5 % LAV(MOD-sp4): 26.3 ml LA A4 area: 12.1 cm2 LA dimension(2D): 2.4 cm RA A4 area: 10.0 cm2 Doppler Measurements AND Calculations MV E max nataly: 22.6 cm/sec Lat Peak E' Nataly: 4.9 cm/sec Med Peak E' Nataly: 2.7 cm/sec MV A max nataly: 81.9 cm/sec E/E' lat: 4.6 E/E' med: 8.4 MV E/A: 0.28 MV P1/2t max nataly: 23.8 cm/sec Ao V2 max: 78.4 cm/sec LV V1 max: 61.8 cm/sec MV P1/2t: 59.2 msec Ao max P.5 mmHg LV V1 max P.6 mmHg MV dec slope: 117.7 cm/sec2 MVA(P1/2t): 3.7 cm2 PA V2 max: 50.9 cm/sec PI end-d nataly: 125.4 cm/sec TR max nataly: 208.6 cm/sec TR max P.4 mmHg Interpretation Summary The study was technically difficult. Left ventricular systolic function is lower limits of normal. The estimated ejection fraction is 50 %. The global longitudinal strain = -13% (abnormal). Mild (1+) mitral valve insufficiency. Mild tricuspid valve insufficiency. Mild (1+) pulmonic valve insufficiency. Right ventricular systolic pressure estimated to be 20 mmHg. No evidence for diastolic dysfunction. Ordering Physician: OMI WELLINGTON Referring Physician: DAYA GALLAGHER Performed By: Aby Loaiza, RDCS, RVT 04/25/181707 Date Shelton Hopper MD CC: Daya Gallagher MD; OMI WELLINGTON Date Dictated: 04/25/18 1423 Date Transcribed: 04/25/181707 Construction Ironworker: Signed CT CHEST WITHOUT Observed: 04/18/2018 Status: F Source: [place] [facility] 3:55 PM [facility] REPOSITORY EXAM: CT CHEST WITHOUT CONTRAST, 04/18/2018 13:57 PM COMPARISON: Compared to CT chest 01/31/2018 and 12/27/2017 CLINICAL INDICATIONS: Interstitial lung disease; f/u ILD vs breast cancer. Triying empiric steroids in case POWERED BRIDGE SPECIALIST and want to compare to CT chset Jan 31; RELEVANT CLINICAL HISTORY: J84.9:Interstitial lung disease TECHNIQUE: Axial CT images were reconstructed from the volumetric data set, from the thoracic inlet through the adrenal glands. No intravenous contrast was used. Coronal MIP images were also reconstructed. FINDINGS: Lungs and Pleura: There are innumerable groundglass nodular opacities with a predominant bronchovascular and subpleural distribution. There are confluent groundglass and consolidative changes in the bilateral lung bases with destructive cystic changes. There is smooth septal thickening in the bases as well. Overall the findings are mildly progressed compared to prior with increased groundglass opacity particularly within the left lower lung and mid to upper lung zones. Tracheobronchial tree: No abnormality. Mediastinum/Sruthi: No mediastinal or hilar lymphadenopathy. Axilla and Supraclavicular Regions: No axillary or supraclavicular adenopathy. Cardiovascular: The cardiac chambers are within normal limits. The pericardium is normal. Scattered atherosclerotic calcifications of the aorta and its arch branch vessels. The pulmonary arteries are also unremarkable. Upper Abdomen: The upper abdominal contents are unremarkable. Bones and Soft Tissue: No suspicious osseous lesion. Prior bilateral mastectomy. Surgical clips in the right axilla. IMPRESSION: 1. Mild progression of mixed airspace changes with upper lobe nodular groundglass and basilar mixed groundglass/consolidative opacity. The overall appearance is suggestive of an eosinophilic pneumonia or an idiopathic interstitial pneumonia such as cryptogenic organizing pneumonia given patient's history. A metastatic process would be difficult to exclude. 2. No intrathoracic lymphadenopathy. I personally viewed and interpreted these images and I have reviewed and approved this report. W/DIFF, AUTOMATED Collected: 04/17/2018 Status: F Source: [place] 5:11 PM [facility] REPOSITORY TYPE CODE TESTS RESULT OUT OF RANGE REFERENCE UNITS LAB L100.1000 4.4-11.0 K/mm3 High WBC 11.3 LAB L100.1200 4.2-5.4 M/mm3 Normal RBC 5.00 LAB L100.1300 12.0-15.0 g/dl Normal HGB 14.9 LAB L100.1400 37-47 % Normal HCT 45.9 LAB L100.1500 81-99 fL Normal MCV 91.8 LAB L100.1600 27.0-32.0 pg Normal MCH 29.8 LAB L100.1700 32-36 g/gl Normal MCHC 32.5 LAB L100.1810 11.6-14.6 % Normal RDW CV 14.2 LAB L100.1820 35.1-43.9 fl High RDW SD 47.7 LAB L100.1900 150-450 K/mm3 Normal PLT 162 LAB L100.2000 6.2-12.0 fl Normal MPV 9.3 LAB L100.2100 47-70 % Normal NEUT% 69.1 LAB L100.2200 19-41 % Normal LY% 24.8 LAB L100.2300 0-10 % Normal MONO% 4.6 LAB L100.2400 0-5 % Normal EO% 0.8 LAB L100.2500 0-1 % Normal BASO% 0.3 LAB L100.2550 0.0-0.9 % Normal IM GRAN % 0.400 Result Comment: IG% - Immature Granulocytes (promyelocytes, myelocytes and metamyelocytes) > 1% indicates that a LEFT SHIFT is Present. LAB L100.2620 2.0-7.7 X10 3/uL High Absolute Neut 7.8 LAB L100.2720 0.83-4.51 X10 3/ul Normal Absolute Lymph 2.80 Performed By: #### L100.0100 #### [facility] [address] [place], [place], [id number] BNP,B-TYPE NATRIURETIC Collected: 04/17/2018 Status: F Source: [place] PEPTIDE 5:11 PM [facility] REPOSITORY TYPE CODE TESTS RESULT OUT OF RANGE REFERENCE UNITS LAB L503.6620 0-100 pg/mL Normal B-TYPE 14.4 SHAHLA PEP Performed By: #### L503.6620 #### [facility] [address] [facility] [place], [place], [address] BASIC METABOLIC Collected: 04/17/2018 Status: C Source: [place] PROFILE (BMP) 5:11 PM [facility] REPOSITORY TYPE CODE TESTS RESULT OUT OF RANGE REFERENCE UNITS LAB L501.0100 74-106 mg/dL High GLU 149 Result Comment: Fasting Glucose result greater than or equal to 126 mg/dL suggests DIABETES MELLITUS per A.D.A. criteria. Please note revised GLUCOSE reference range effective 2017. LAB L501.1000 7-18 mg/dL Normal BUN 9 LAB L501.1100 0.55-1.02 mg/dL Normal CREAT,SERUM 0.66 Result Comment: The validity of the calculated GFR AND GFRAA in patients over 70 years has not been determined. Clinical correlation is essential. LAB L501.1110 >60 mL/min Normal EST GFR 92 Result Comment: Non- GFR Calc AMENDED REPORT 04/24/181817 EST GFR previously reported as: 92 mL/min LAB L501.1115 >60 mL/min Normal EST GFR - AA 112 Result Comment: GFR Calc AMENDED REPORT 04/24/181817 EST GFR - AA previously reported as: 112 mL/min LAB L501.1300 10-20 RATIO Normal BUN/CRE 13.7 Result Comment: AMENDED REPORT 04/24/181817 BUN/CRE previously reported as: 13.6 RATIO LAB L501.2200 8.5-10.1 mg/dL Normal CA 8.7 LAB L501.5300 136-145 mmol/L Low NA 135 LAB L501.5600 3.5-5.1 mmol/L Normal K 3.8 LAB L501.5900 98-107 mmol/L Normal CL 103 LAB L501.6100 21.0-32.0 mmol/L Normal CO2 23.0 LAB L501.6200 5-15 Normal 9 GAP Performed By: #### L500.2500, L501.9520, L506.0400 #### [facility] [address] [place], [place], [id number] THYROID STIM HORMONE Collected: 04/17/2018 Status: F Source: GRIZZ[place] FLATS (TSH) 5:11 PM [facility] REPOSITORY TYPE CODE TESTS RESULT OUT OF RANGE REFERENCE UNITS LAB L501.9520 0.358-3.74 uIU/mL Normal TSH 1.11 Performed By: #### L500.2500, L501.9520, L506.0400 #### [facility] [address] [facility] [place], [place], [address] T4 FREE DIRECT Collected: 04/17/2018 Status: F Source: [place] 5:11 PM [facility] REPOSITORY TYPE CODE TESTS RESULT OUT OF RANGE REFERENCE UNITS LAB L506.0400 0.76-1.46 ng/dL Normal T4 FREE 0.90 DIRECT Performed By: #### L500.2500, L501.9520, L506.0400 #### [facility] [address] [place], [address] CARDIOLOGY VISIT Observed: 03/17/2018 Status: F Source: [place] REPORT 11:52 AM [facility] REPOSITORY [facility] [address] [place] [address] OFFICE VISIT Date of Service: 03/17/18 MR#: [id number] Acct: [id number] Name: JASON ARROYO Rep #: [id number] : 1940 Provider: Shelton Hopper MD Age/Sex: 77/F [place] [facility] Status: Signed HPI HPI Details: JASON ARROYO, is a 77 F who presents to the office today for outpatient cardiovascular follow-up. Since her visit of approximately 1 year ago from a cardiac standpoint she does not describe any symptoms of ongoing angina pectoris nor has she had any overt episodes of CHF or pulmonary edema. There has been no near syncope or syncope. She has not been complaining of palpitations related to her PACs/PVCs. She states she he was concerned about a cough and the possibility of recurrent breast carcinoma and/or the development of a lung carcinoma. She has subsequently been evaluated at [facility]. She had a chest CT scan which did not demonstrate any acute cardiovascular issues. She states she was diagnosed with a cryptogenic pneumonia. She has been on corticosteroid therapy. She notes since being on corticosteroid therapy she cannot sleep well. She is due to return to [facility] in April 2018 for a follow-up visit including a follow-up CT scan. Intake Vital Signs03/17/18 Height 5 ft 3 in 03/17/18 Weight: 143 lb 03/17/18 Body Mass Index (BMI) 25.3 03/17/18 Blood Pressure 98/58 L Intake Visit Reasons: 1 Y FU Allergies codeine Allergy (Verified 03/17/18 11:03) Unknown latex Allergy (Verified 03/17/18 11:03) Unknown Medications Omeprazole [Prilosec] 20 mg PO DAILY PRN PRN 01/29/17 [History Confirmed 03/17/18] ascorbic acid (vitamin C) 500 mg capsule 500 mg PO DAILY cap 03/17/18 [History Confirmed 03/17/18] calcium carbonate-vitamin D3 600 mg (1,500 mg)-400 unit capsule 1,500 cap PO DAILY cap 03/17/18 [History Confirmed 03/17/18] cholecalciferol (vitamin D3) 400 unit capsule 800 unit PO DAILY cap 03/17/18 [History Confirmed 03/17/18] multivitamin tablet 1 tab PO DAILY 03/17/18 [History Confirmed 03/17/18] prednisone 10 mg tablet 30 mg PO .COMPLEX tab 03/17/18 [History Confirmed 03/17/18] turmeric 400 mg capsule 400 mg PO DAILY cap 03/17/18 [History Confirmed 03/17/18] vitamin B complex tablet 1 tab PO DAILY 03/17/18 [History Confirmed 03/17/18] vitamin E 200 unit capsule 200 unit PO DAILY 03/17/18 [History Confirmed 03/17/18] PFSH Medical History Chest pain (Chronic) Angina pectoris (Chronic) Dyspnea on exertion (Chronic) Palpitations (Acute) Breast cancer (Chronic) Surgical History History of cholecystectomy (Chronic) S/P mastectomy, bilateral (Chronic) Family History Mother Valvular heart disease Sister Valvular heart disease Social History Smoking Status: Never smoker second hand exposure: No alcohol intake: current alcohol intake frequency: holidays/special occasions only Alcohol type: wine substance use type: other details: None, does not use what type of physical activity do you participate in: none seatbelt use: always do you feel safe at home: Yes ROS Const Const: Positive for difficulty sleeping (currently on prednisone tapering for pneumonia); negative for fatigue, weakness, weight gain, weight loss, frequent falls or excessive sweating Eyes Eyes: Negative for change in vision, blurry vision or transient loss of vision ENT ENT: Negative for dizziness or balance problems Cardio Chest Pain: No Palpitations: No Edema: None Muscle aches with walking: None Resp Respiratory: Negative for SOB with activity or SOB at rest GI GI: Negative vomiting or vomiting blood/hematemesis : Negative for hematuria Musc Musc: Positive for muscle aches/ myalgia (neck pain @ night, previous finding); negative for balance problems, muscle weakness or joint pain Skin Skin: Negative non-healing lesions or rash Neuro Neuro: Positive for lightheadedness (occasional, happens anytime, fleeting); negative for weakness, blurry vision, dizziness, frequent falls or orthostatic symptoms [place] Hematologic/Lymphatic: Negative for easy bleeding Endo Endo: Negative for fatigue or excessive sweating Psych Psych: Negative for anxiety or depression Allergy Allergy/Immunology: Negative for hives, Negative for rash Cardiology Exam Const Appearance: cooperative, healthy appearing, comfortable, no acute distress, well developed and well groomed Nutritional Appearance: well nourished Orientation: alert, awake and oriented x3 Head Head: normal to inspection Ears: hearing grossly normal bilaterally Nose: external nose normal Face and Sinus: face symmetric Mouth: oral mucosae normal Teeth and gingiva: fair dentition Eyes Eyelids: eyelids normal Conjunctivae: conjunctivae normal Pupils: PERRL EOM: EOM intact bilaterally Neck Neck: normal visual inspection and full ROM Carotids: normal carotid upstroke Chest Chest inspection: normal inspection of the chest, symmetric chest movement and normal respiratory effort Auscultation: Bilateral: Clear to Auscultation Cardio Palpation: normal PMI Rate: regular rate Rhythm: regular rhythm Heart sounds: S1 normal, S2 normal and PMI non distended GI GI: normal to inspection, soft and bowel sounds present Neuro General: alert, awake, oriented x3, gait normal and no focal motor deficits Skin Skin: no rashes or lesions noted Extremities Pulses: Normal: Right Femoral Pulse, Left Femoral Pulse, Right Dorsalis Pedis Pulse, Left Dorsalis Pedis Pulse, Right Posterior Tibial Pulse, Left Posterior Tibial Pulse, Right Radial Pulse, Left Radial Pulse Lower Extremity Edema: None: Bilateral Psych Psychological: normal affect Assessment AND Plan 1. Premature atrial complexes I49.1 Plan At the present time she appears to be doing well with no acute symptoms related to underlying ectopy. She will continue an observational follow-up. Orders Orders: 2. Premature ventricular beat I49.3 Plan Again she appears without any acute symptoms. She will continue an observational follow-up. Orders Orders: 3. 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 She will continue risk factor evaluation and care. This will include a future fasting lipid/hepatic profile. Depending upon the findings she may need to consider medical management. Orders Orders: Plan Detail Other Medications New: Additional Comments Otherwise she will continue to follow with her [facility] physicians. She will be scheduled for an outpatient visit in approximately 1 year unless needed sooner. Thank you for allowing me to participate in the care of your patient. Please don't hesitate to call if any issues arise. This note was generated using a voice recognition system and there may be incorrect words, spelling or punctuation that were not noted when reviewing the office note prior to saving. 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 transplanted heart: unga heart Associated angina: without angina 03/17/18 1152 <Electronically signed by Shelton Hopper MD> Date Shelton Hopper MD Cosigner Signature: Date (if applicable) CC: Alisha Medina DO CT CHEST WITHOUT Observed: 01/31/2018 Status: F Source: [place] [facility] 11:30 AM [facility] REPOSITORY EXAM: CT CHEST WITHOUT CONTRAST, 01/31/2018 08:53 AM COMPARISON: Prior CT chest from December 27, 2017. CLINICAL INDICATIONS: dyspnea, cough; RELEVANT CLINICAL HISTORY: R93.89:Abnormal chest xray TECHNIQUE: Axial CT images were reconstructed from the volumetric data set, from the thoracic inlet through the adrenal glands. No intravenous contrast was used. Coronal MIP images were also reconstructed. FINDINGS: Lungs and Pleura: Innumerable tiny nodules within bilateral lungs. There are multiple larger ill-defined nodular densities scattered throughout bilateral lungs. In bilateral posterior lungs there are larger areas of patchy consolidation, worst at the lung bases. Overall, this exam is slightly worse compared to the prior as the previously measured area of consolidation within the superior portion of the right lower lobe is now confluent with the larger area of consolidation at the right lung base. Tracheobronchial tree: No abnormality. Mediastinum/Sruthi: No mediastinal or hilar lymphadenopathy. Esophagus appears normal. Axilla and Supraclavicular Regions: No axillary or supraclavicular adenopathy. The thyroid is normal. Surgical clips are seen within the right axilla. Cardiovascular: The cardiac chambers are within normal limits. The pericardium is normal. Scattered atherosclerotic calcifications of the aorta. The pulmonary arteries are also unremarkable. Upper Abdomen: The upper abdominal contents are unremarkable. Bones and Soft Tissue: No suspicious osseous lesion. IMPRESSION: 1. Interval worsening of nodular consolidative disease in both lungs, as well as some small nodules. This could be related to an indolent infectious process. An inflammatory process such as cryptogenic organizing pneumonia is a possibility. Of course, given the history, a metastatic process cannot be excluded. In any case, the appearance is slightly worse than it was on the prior study. I personally viewed and interpreted these images and I have reviewed and approved this report. ,PLATELET,DIFFERENTIAL - CCL Collected: Status: F Source: [facility] 01/03/2018 3:51 AM [facility] REPOSITORY TYPE CODE TESTS RESULT OUT OF REFERENCE UNITS RANGE LAB WBC 3.98-10.04 K/uL WBC Count 8.49 LAB RBC 3.93-5.22 M/uL RBC Count 4.81 LAB HGB 11.2-15.7 g/dL Hemoglobin 14.3 LAB HCT 34.1-44.9 % Hematocrit 42.9 LAB MCV 79.4-94.8 fL Mean Cell 89.2 Volume LAB MCH 25.6-32.2 pg Mean Cell 29.7 Hgb LAB MCHC 32.2-35.5 g/dL Mean Cell 33.3 Hgb Conc LAB RDW 11.7-14.4 % RBC 12.8 Distribution LAB PLT 182-369 K/uL Platelet 146 Low Count LAB MPV 9.4-12.3 fL Mean 10.4 Platelet Volume LAB NRBC 0.0-0.2 /100 WBC NUCLEATED 0.0 RBC LAB DTYPE Electronic DIFFERENTIAL TYPE Differential LAB IGRE % IMMATURE 0.2 GRANS % LAB SEGS % NEUTROPHIL 57.6 SEGMENTED LAB LYM % LYMPHOCYTE 27.9 % LAB MON % MONOCYTE % 7.2 LAB EOS % EOSINOPHIL 6.2 % LAB BASO % BASOPHIL % 0.9 LAB IGABS <0.04 K/uL IMMATURE <0.04 GRANS ABSOLUTE LAB SBANS 1.56-6.13 K/uL SEGS + 4.88 Bands,Absolute LAB ALYM 1.18-3.74 K/uL Abs Lymph 2.37 LAB AMONO 0.24-0.86 K/uL Abs Toombs 0.61 LAB AEOS <0.37 K/uL Abs Eos 0.53 High LAB ABASO <0.09 K/uL Abs Baso 0.08 Performed By: #### CBCDFC, CA, CHM7, HFP, IPB, MGO #### [facility] [address] [place] [address] CALCIUM Collected: 01/03/2018 Status: F Source: [facility] 3:51 AM [facility] REPOSITORY TYPE CODE TESTS RESULT OUT OF REFERENCE UNITS RANGE LAB CA 8.6-10.5 mg/dL Calcium 9.0 Performed By: #### CBCDFC, CA, CHM7, HFP, IPB, MGO #### [facility] [address] [place] [id number] CHEM 7 Collected: 01/03/2018 Status: F Source: [facility] 3:51 AM [facility] REPOSITORY TYPE CODE TESTS RESULT OUT OF REFERENCE UNITS RANGE LAB BUN 7-22 mg/dL BUN 10 LAB NA 133-143 mmol/L Sodium 136 LAB K 3.5-5.0 mmol/L Potassium 4.3 Result Comment: MODERATE HEMOLYSIS LAB CL 98-108 mmol/L Chloride 103 LAB CO2 22-30 mmol/L Carbon Dioxide 24 LAB GLUC 70-99 mg/dL Glucose High 135 LAB CREA 0.50-1.20 mg/dL Creatinine 0.67 LAB GAP 7-17 mmol/L Anion Gap 13 LAB BC BUN/CREA Ratio 15 LAB OSMC 278-305 mOsm/kg Osmolality (Calc) 287 LAB GFR >60 mL/min/1.73sq M Est GFR,non >60 LAB GFRA >60 mL/min/1.73sq M Est GFR, >60 Performed By: #### CBCDFC, CA, CHM7, HFP, IPB, MGO #### [facility] [address] [place] [address] HEPATIC FUNCTION Collected: 01/03/2018 Status: F Source: [facility] PANEL 3:51 AM [facility] REPOSITORY TYPE CODE TESTS RESULT OUT OF REFERENCE UNITS RANGE LAB ALB 3.5-5.0 g/dL Albumin 3.7 LAB BILD <0.3 mg/dL Bilirubin 0.1 Direct Result Comment: MODERATE HEMOLYSIS LAB BILT <1.5 mg/dL Bilirubin Total 0.7 Result Comment: MODERATE HEMOLYSIS LAB ALP 32-126 U/L Alkaline Phosphatase 88 LAB ALT 9-48 U/L ALT 24 Result Comment: MODERATE HEMOLYSIS LAB AST 14-40 U/L High AST 44 Result Comment: MODERATE HEMOLYSIS LAB TP 6.4-8.3 g/dL Low Total Protein 6.1 Performed By: #### CBCDFC, CA, CHM7, HFP, IPB, MGO #### [facility] [address] [place] [address] [place] [address] [address] INORGANIC PHOSPHATE Collected: 01/03/2018 Status: F Source: [facility] 3:51 AM [facility] REPOSITORY TYPE CODE TESTS RESULT OUT OF REFERENCE UNITS RANGE LAB IP 2.2-4.6 mg/dL Inorg Phosphate 3.5 Result Comment: MODERATE HEMOLYSIS Performed By: #### CBCDFC, CA, CHM7, HFP, IPB, MGO #### [facility] [address] [place] [address] [facility] [address] [place] [address] MAGNESIUM Collected: 01/03/2018 Status: F Source: [place] [place] [facility] 3:51 AM [facility] REPOSITORY TYPE CODE TESTS RESULT OUT OF REFERENCE UNITS RANGE LAB MG 1.6-2.6 mg/dL Magnesium 2.1 Result Comment: MODERATE HEMOLYSIS Performed By: #### CBCDFC, CA, CHM7, HFP, IPB, MGO #### [facility] [address] [place] [address] [place] [address] URINALYSIS REFLEX Collected: 01/02/2018 Status: F Source: [place] CULTURE 10:07 PM [facility] REPOSITORY TYPE CODE TESTS RESULT OUT OF RANGE REFERENCE UNITS LAB FOOD PRESERVATION SCIENTIST Clear Appearance Urine Clear LAB SPGR 1.001-1.035 Specific Macy urine 1.007 LAB UGL Negative mg/dL Glucose Urine Negative LAB UKET Negative Ketones Urine Negative LAB UBLD Negative Blood Urine Negative LAB UPH 5.0-7.0 pH Urine 5.5 LAB UPR Negative mg/dL Protein Urine Negative LAB UNTR Negative Nitrites Urine Negative LAB ULEU Negative Leukocyte Abnormal Esterase Trace LAB COLR Yellow Color Yellow LAB UURO <2.0 EU/dL Urobilinogen 0.2 urine LAB UWBC 0-5 /HPF WBC Urine 0-5 LAB URBC 0-2 /HPF RBC Urine 0-2 LAB BACT Absent Bacteria Absent LAB UCOM COMMENT URINE None LAB EPIS /HPF Squamous Epithelial Absent Performed By: #### URIN1 #### [facility] [address] [place] [address] [place] [address] PLATELET COUNT Collected: 01/02/2018 Status: F Source: [facility] BATTERY 7:28 AM [facility] REPOSITORY TYPE CODE TESTS RESULT OUT OF REFERENCE UNITS RANGE LAB PLT 182-369 K/uL Low Platelet Count 179 LAB MPV 9.4-12.3 fL Mean Platelet 9.5 Volume Performed By: #### PLAT #### [facility] [address] [place] [address] [place] [address] COCCIDIOIDES AB, SERUM Collected: 01/02/2018 Status: F Source: [facility] 6:41 AM [facility] REPOSITORY TYPE CODE TESTS RESULT OUT OF REFERENCE UNITS RANGE LAB CCOMF Negative Cocci Complement F Negative LAB CIMMG Negative Cocci Immunodiffusion IgG Negative LAB CIMMM Negative Cocci Immunodiffusion IgM Negative Result Comment: (NOTE) A negative complement fixation and immunodiffusion (CF/ID) result does not exclude the diagnosis of coccidioidomycosis. Repeat testing by CF/ID in 2-3 weeks if clinically indicated. Test performed by [facility] Performed By: #### YSCOC, XMYOP #### Reference lab information reported with result MYOSITIS PROFILE Collected: 01/02/2018 Status: F Source: [facility] 6:41 [facility] REPOSITORY TYPE CODE TESTS RESULT OUT OF REFERENCE UNITS RANGE LAB PL7 Negative PL-[address]12 Negative [address]-12 Negative LAB EJ Negative EJ Negative LAB OJ Negative OJ Negative LAB KU Negative Ku Negative LAB MI2 Negative Mi-2 Negative LAB SRP Negative SRP Negative LAB U2RNP Negative U2RNP Negative Result Comment: (NOTE) ADDITIONAL INFORMATION This panel was developed and its performance characteristics validated by [facility]. There is no FDA approved assay for the above tests. As a lab developed test (LDT), approval or clearance by the FDA is not required. This test may be used for clinical purposes and should not be regarded as investigational or for research. Test Performed by: [facility] [address] [place] [address] Performed By: #### YSCOC, XMYOP #### Reference lab information reported with result CBC,PLATELET,DIFFERENTIAL - CCL Collected: Status: F Source: [facility] 01/02/2018 2:32 AM [facility] REPOSITORY TYPE CODE TESTS RESULT OUT OF REFERENCE UNITS RANGE LAB WBC 3.98-10.04 K/uL WBC Count 9.06 LAB RBC 3.93-5.22 M/uL RBC Count 5.42 High LAB HGB 11.2-15.7 g/dL Hemoglobin 15.9 High LAB HCT 34.1-44.9 % Hematocrit 49.3 High LAB MCV 79.4-94.8 fL Mean Cell 91.0 Volume LAB MCH 25.6-32.2 pg Mean Cell 29.3 Hgb LAB MCHC 32.2-35.5 g/dL Mean Cell 32.3 Hgb Conc LAB RDW 11.7-14.4 % RBC 12.8 Distribution LAB PLT 182-369 K/uL Platelet 188 Count LAB MPV 9.4-12.3 fL Mean 9.3 Low Platelet Volume LAB NRBC 0.0-0.2 /100 WBC NUCLEATED 0.0 RBC LAB DTYPE Electronic DIFFERENTIAL TYPE Differential LAB IGRE % IMMATURE 0.4 GRANS % LAB SEGS % NEUTROPHIL 60.4 SEGMENTED LAB LYM % LYMPHOCYTE 25.8 % LAB MON % MONOCYTE % 7.0 LAB EOS % EOSINOPHIL 5.4 % LAB BASO % BASOPHIL % 1.0 LAB IGABS <0.04 K/uL IMMATURE 0.04 High GRANS ABSOLUTE LAB SBANS 1.56-6.13 K/uL SEGS + 5.47 Bands,Absolute LAB ALYM 1.18-3.74 K/uL Abs Lymph 2.34 LAB AMONO 0.24-0.86 K/uL Abs Toombs 0.63 LAB AEOS <0.37 K/uL Abs Eos 0.49 High LAB ABASO <0.09 K/uL Abs Baso 0.09 High Performed By: #### CBCDFC, CA, CHM7, CKB, IPB, MGO, RF, ACCP, CENTT, ENAB, JO1T, SCL70T, ANCAB #### [facility] [address] [place] [address] [place] [address] #### RACHEAL CURIEL YHYPER #### Reference lab information reported with result CALCIUM Collected: 01/02/2018 Status: F Source: [facility] 2:32 AM [facility] REPOSITORY TYPE CODE TESTS RESULT OUT OF REFERENCE UNITS RANGE LAB CA 8.6-10.5 mg/dL Calcium 9.3 Performed By: #### CBCDFC, CA, CHM7, CKB, IPB, MGO, RF, ACCP, CENTT, ENAB, JO1T, SCL70T, ANCAB #### [facility] [address] [place] [address] [facility] [address] [place] [address] #### RACHEAL CURIEL YHYPER #### Reference lab information reported with result CHEM 7 Collected: 01/02/2018 Status: F Source: [facility] 2:32 AM [facility] REPOSITORY TYPE CODE TESTS RESULT OUT OF REFERENCE UNITS RANGE LAB BUN 7-22 mg/dL BUN 8 LAB NA 133-143 mmol/L Sodium 135 LAB K 3.5-5.0 mmol/L Potassium 4.3 Result Comment: SLIGHTLY HEMOLYZED LAB CL 98-108 mmol/L Chloride 103 LAB CO2 22-30 mmol/L Carbon Dioxide 22 LAB GLUC 70-99 mg/dL Glucose High 102 LAB CREA 0.50-1.20 mg/dL Creatinine 0.70 LAB GAP 7-17 mmol/L Anion Gap 14 LAB BC BUN/CREA Ratio 11 LAB OSMC 278-305 mOsm/kg Osmolality (Calc) 282 LAB GFR >60 mL/min/1.73sq M Est GFR,non >60 LAB GFRA >60 mL/min/1.73sq M Est GFR, >60 Performed By: #### CBCDFC, CA, CHM7, CKB, IPB, MGO, RF, ACCP, CENTT, ENAB, JO1T, SCL70T, ANCAB #### [facility] [address] [place] [address] [address] [address] #### RACHEAL CURIEL YHYPER #### Reference lab information reported with result CK Collected: 01/02/2018 Status: F Source: [facility] 2:32 AM [facility] REPOSITORY TYPE CODE TESTS RESULT OUT OF REFERENCE UNITS RANGE LAB CK 30-184 U/L High Creatine 405 Kinase Result Comment: SLIGHTLY HEMOLYZED Performed By: #### CBCDFC, CA, CHM7, CKB, IPB, MGO, RF, ACCP, CENTT, ENAB, JO1T, SCL70T, ANCAB #### [facility] [address] [place] [address] [facility] [address] [place] [address] #### RACHEAL CURIEL YHYPER #### Reference lab information reported with result INORGANIC PHOSPHATE Collected: 01/02/2018 Status: F Source: [facility] 2:32 AM [facility] REPOSITORY TYPE CODE TESTS RESULT OUT OF REFERENCE UNITS RANGE LAB IP 2.2-4.6 mg/dL Inorg Phosphate 3.4 Result Comment: SLIGHTLY HEMOLYZED Performed By: #### CBCDFC, CA, CHM7, CKB, IPB, MGO, RF, ACCP, CENTT, ENAB, JO1T, SCL70T, ANCAB #### [facility] [address] [place] [address] [address] [address] #### RACHEAL CURIEL YHYPER #### Reference lab information reported with result MAGNESIUM Collected: 01/02/2018 Status: F Source: [facility] 2:32 [facility] REPOSITORY TYPE CODE TESTS RESULT OUT OF REFERENCE UNITS RANGE LAB MG 1.6-2.6 mg/dL Magnesium 2.2 Result Comment: SLIGHTLY HEMOLYZED Performed By: #### CBCDFC, CA, CHM7, CKB, IPB, MGO, RF, ACCP, CENTT, ENAB, JO1T, SCL70T, ANCAB #### [facility] [address] [place] [address] [address] [address] #### RACHEAL CURIEL YHYPER #### Reference lab information reported with result RHEUMATOID FACTOR (RF) Collected: 01/02/2018 Status: F Source: [facility] 2:32 [facility] REPOSITORY TYPE CODE TESTS RESULT OUT OF REFERENCE UNITS RANGE LAB RF 0-14 IU/mL Rheumatoid <10 Factor (RF) Performed By: #### CBCDFC, CA, CHM7, CKB, IPB, MGO, RF, ACCP, CENTT, ENAB, JO1T, SCL70T, ANCAB #### [facility] [address] [place] [address] [address] [address] #### RACHEAL CURIEL YHYPER #### Reference lab information reported with result CYCLIC CITRILLINAT. Collected: 01/02/2018 Status: F Source: [facility] PEPTIDE AB 2:32 [facility] REPOSITORY TYPE CODE TESTS RESULT OUT OF REFERENCE UNITS RANGE LAB ACCP <5.0 U/mL Cyclic 0.5 Citrillinat. Peptide Ab Performed By: #### CBCDFC, CA, CHM7, CKB, IPB, MGO, RF, ACCP, CENTT, ENAB, JO1T, SCL70T, ANCAB #### [facility] [address] [place] [address] #### RACHEAL CURIEL YHYPER #### Reference lab information reported with result CENTROMERE ANTIBODY Collected: 01/02/2018 Status: F Source: [facility] 2:32 [facility] REPOSITORY TYPE CODE TESTS RESULT OUT OF REFERENCE UNITS RANGE LAB CENTT Negative Centromere Negative Antibody Performed By: #### CBCDFC, CA, CHM7, CKB, IPB, MGO, RF, ACCP, CENTT, ENAB, JO1T, SCL70T, ANCAB #### [facility] [address] [place] [address] #### RACHEAL CURIEL YHYPER #### Reference lab information reported with result FIONA BATTERY, MULTIPLEX Collected: 01/02/2018 Status: F Source: [facility] 2:32 [facility] REPOSITORY TYPE CODE TESTS RESULT OUT OF REFERENCE UNITS RANGE LAB RNPT Negative SUPERVISOR FEED MILL Antibody Negative LAB SMT Negative Everett Antibody Negative LAB SSAT Negative SSA Antibody Negative LAB SSBT Negative SSB Antibody Negative Performed By: #### CBCDFC, CA, CHM7, CKB, IPB, MGO, RF, ACCP, CENTT, ENAB, JO1T, SCL70T, ANCAB #### [facility] [address] [place] [address] [facility] [address] [place] [address] #### RACHEAL CURIEL YHYPER #### Reference lab information reported with result QUEENIE-1 ANTIBODY Collected: 01/02/2018 Status: F Source: [facility] [address] [place] [address] REPOSITORY TYPE CODE TESTS RESULT OUT OF REFERENCE UNITS RANGE LAB JO1T Negative QUEENIE-1 Antibody Negative Performed By: #### CBCDFC, CA, CHM7, CKB, IPB, MGO, RF, ACCP, CENTT, ENAB, JO1T, SCL70T, ANCAB #### [facility] [address] [place] [address] [place] [address] #### RACHEAL CURIEL YHYPER #### Reference lab information reported with result SCL70 ANTIBODY Collected: 01/02/2018 Status: F Source: [facility] [address] [place] [address] REPOSITORY TYPE CODE TESTS RESULT OUT OF REFERENCE UNITS RANGE LAB SCL70T Negative Scl70 Antibody Negative Performed By: #### CBCDFC, CA, CHM7, CKB, IPB, MGO, RF, ACCP, CENTT, ENAB, JO1T, SCL70T, ANCAB #### [facility] [address] [place] [id number] [place] [address] [address] [place] [address] #### RACHEAL CURIEL YHYPER #### Reference lab information reported with result FUNGITELL ASSAY Collected: 01/02/2018 Status: F Source: [facility] [address] [place] [address] REPOSITORY TYPE CODE TESTS RESULT OUT OF REFERENCE UNITS RANGE LAB FFUNG <60 pg/mL Fungitell Result 43 LAB FUNINT Fungitell Interpretation Negative Result Comment: (NOTE) This assay is for the presumptive diagnosis of fungal infections and should be used in conjunction with other diagnostic procedures. (1->3)-zrbj-J-kttgpg values of <60 pg/mL are considered negative and indicate the presumptive absence of fungal infection. Glucan values of >=60 but <79 pg/mL are considered indeterminate, and glucan values of >=80 pg/mL are considered positive and indicate the presumptive presence of a fungal infection. This assay may not detect certain fungal species that do not produce or produce low levels of (1->3)-eptx-B-fevaak including: Cryptococcus, Absidia, Mucor, Rhizopus, and the yeast phase of Blastomyces dermatitidis. Test Performed by [facility], [facility], [address] [place] [address] Harman Estrada M.D., Ph.D., Director of Laboratories , [facility] [id number] Test sent to [facility] Lab Performed By: #### CBCDFC, CA, CHM7, CKB, IPB, MGO, RF, ACCP, CENTT, ENAB, JO1T, SCL70T, ANCAB #### [address] [place] [address] #### RACHEAL CURIEL YHYPER #### Reference lab information reported with result ALDOLASE Collected: 01/02/2018 Status: F Source: [facility] [address] [place] [address] REPOSITORY TYPE CODE TESTS RESULT OUT OF REFERENCE UNITS RANGE LAB YALDO Test Aldolase Not Performed Result Comment: Reviewed IN IHIS BY DEN OSWALD ON 01/06/18 AT 1025AM (NOTE) Test not performed. Specimen unsuitable for testing due to hemolysis. Performed By: #### CBCDFC, CA, CHM7, CKB, IPB, MGO, RF, ACCP, CENTT, ENAB, JO1T, SCL70T, ANCAB #### [place] [address] [place] [address] #### YFFURACHEAL DEWITT YHYPER #### Reference lab information reported with result ANCA INITIAL SCREEN Collected: 01/02/2018 Status: F Source: [facility] 2:32 [facility] REPOSITORY TYPE CODE TESTS RESULT OUT OF REFERENCE UNITS RANGE LAB ANCA Negative Neutrophil Cytoplasmic Antibod Negative LAB PR3AB Negative Proteinase 3 Antibodies Negative LAB MPO Negative Myeloperoxidase Antibodies Negative Performed By: #### CBCDFC, CA, CHM7, CKB, IPB, MGO, RF, ACCP, CENTT, ENAB, JO1T, SCL70T, ANCAB #### [facility] [id number] [place] [address] [place] [address] #### VEENA FAISALMOOK TIM #### Reference lab information reported with result HYPERSENSITIVITY PNEUMONIA Collected: 01/02/2018 Status: F Source: [facility] IGG AB 2:32 AM [facility] REPOSITORY TYPE CODE TESTS RESULT OUT OF REFERENCE UNITS RANGE LAB AF1A not reported A. Fumigatus 1 Abs See below Result Comment: (NOTE) TESTS RESULTS--------UNITS--REF. RANGE--- Aspergillus fumigatus NEGATIVE NEGATIVE Micropolyspora faeni NEGATIVE NEGATIVE Charlotte Serum NEGATIVE NEGATIVE T. candidus NEGATIVE NEGATIVE T. vulgaris NEGATIVE NEGATIVE S. viridis NEGATIVE NEGATIVE This test was developed and its analytical performance characteristics have been determined by [facility]. It has not been cleared or approved by FDA. This assay has been validated pursuant to the CLIA regulations and is used for clinical purposes. Results Received 01/07/18 Reference lab accession: [id number] Test performed by [employer] [id number] [place] [id number] [employer]: Mia Hernandez MD,PHD,KAR Test Reported by [facility], [facility] [place], [address] [place] [address] Harman Estrada M.D., Ph.D., Director of Laboratories , CLIA [id number] Reported by [facility] Lab Performed By: #### CBCDFC, CA, CHM7, CKB, IPB, MGO, RF, ACCP, CENTT, ENAB, JO1T, SCL70T, ANCAB #### [facility] [address] [place] [address] [facility] [address] [place] [id number] #### YFFURACHEAL DEWITT YHYPER #### Reference lab information reported with result HISTOPLASMA ANTIGEN, Collected: 01/02/2018 Status: C Source: [facility] FLUID 2:32 AM [facility] REPOSITORY TYPE CODE TESTS RESULT OUT OF REFERENCE UNITS RANGE LAB FHSOUR FH SOURCE BRONCHIAL ALVEOLAR LAVAGE: Result Comment: CORRECTED ON 01/07 AT 1023: PREVIOUSLY REPORTED BAL LAB FHARES ng/mL Histoplasma Antigen, NONE FLUID DETECTED LAB FHAINT Histo FLD Interpretation Negative Result Comment: (NOTE) ADDITIONAL INFORMATION Reference interval: None Detected Results reported as ng/mL in 0.4 - 19 ng/mL range Results above the limit of detection but below 0.4 ng/mL are reported as 'Positive, Below the Limit of Quantification' Results above 19.0 ng/mL are reported as 'Positive, Above the Limit of Quantification' This test was developed and its performance characteristics determined by [facility]. It has not been cleared or approved by the FDA; however, FDA clearance or approval is not currently required for clinical use. The results are not intended to be used as the sole means for clinical diagnosis or patient management decisions. Test Performed by: [facility] [address] [place] [address] Performed By: #### YFHST #### Reference lab information reported with result ZAKIA SCREEN W REFLEX Collected: 01/02/2018 Status: F Source: [facility] ABS, MULTIPLEX 2:28 AM [facility] REPOSITORY TYPE CODE TESTS RESULT OUT OF REFERENCE UNITS RANGE LAB ANARES Negative Negative ZAKIA Screen, Multiplex LAB ANACOM This multiplexed COMMENT ZAKIA screening detects the following autoantibodies (dsDNA, Sm, Sm/SUPERVISOR FEED MILL, SUPERVISOR FEED MILL, SS-A/Ro, SS-B/La, Queenie-1, Scl-70, Chromatin, Centromere B, and Ribosomal P). Result Comment: If the original order contained any of the individual antibodies ordered separately those would have been canceled as duplicate order. Performed By: #### ANASR #### [facility] [address] [place] [address] [facility] [address] [place], [place] [address] PNEUMOCYSTIS Collected: 01/02/2018 Status: C Source: [facility] JIROVECI,PCR 2:28 AM [facility] REPOSITORY TYPE CODE TESTS RESULT OUT OF REFERENCE UNITS RANGE LAB PNRP PN Specimen BRONCHIAL Source ALVEOLAR LAVAGE: Result Comment: CORRECTED ON 01/06 AT 0919: PREVIOUSLY REPORTED BAL LAB PNRPR Not Applicable Pneumocystis jiroveci,PCR resu Negative Result Comment: (NOTE) ADDITIONAL INFORMATION This test was developed and its performance characteristics determined by [facility] in a manner consistent with CLIA requirements. This test has not been cleared or approved by the U.S. Food and Drug Administration. LAB PNRPI Pneumocystis Not applicable jiroveci,PCR comm LAB PNRPRS PN RESULT STATUS Not applicable Result Comment: Test performed by [facility] Dpt of Lab Med & Pathology Performed By: #### YPNRP, YBGABRIELLAG #### Reference lab information reported with result BLASTOMYCES ANTIGEN Collected: 01/02/2018 Status: C Source: [facility] 2:28 AM [facility] REPOSITORY TYPE CODE TESTS RESULT OUT OF REFERENCE UNITS RANGE LAB BLSPT Blastomyces spec BRONCHIAL type ALVEOLAR LAVAGE: Result Comment: CORRECTED ON 01/06 AT 1658: PREVIOUSLY REPORTED BAL LAB BLASAG Blastomyces Ag Negative Comment Result Comment: (NOTE) ADDITIONAL INFORMATION Reference interval: None Detected Results reported as ng/mL in 0.2 - 14.7 ng/mL range Results above the limit of detection but below 0.2 ng/mL are reported as 'Positive, Below the Limit of Quantification' Results above 14.7 ng/mL are reported as 'Positive, Above the Limit of Quantification' This test was developed and its performance characteristics determined by [facility]. It has not been cleared or approved by the FDA; however, FDA clearance or approval is not currently required for clinical use. The results are not intended to be used as the sole means for clinical diagnosis or patient management decisions. Test Performed by: [facility] [address] [place] [address] LAB BLRES ng/mL Blastomyces NONE RESULT: DETECTED Performed By: #### YPNRP, YBLASG #### Reference lab information reported with result XR CHEST PORTABLE Observed: 01/01/2018 Status: F Source: [facility] 8:44 PM [facility] REPOSITORY EXAM: XR CHEST PORTABLE, 01/01/2018 17:57 PM COMPARISON: Compared to prior day. CLINICAL INDICATIONS: post transbronchial biopsy on the right RELEVANT CLINICAL HISTORY: FINDINGS: (Adequate technique) Interval finding of bilateral lower lung zones predominantly right-sided confluent airspace opacities. No pneumothorax. No other change. IMPRESSION: Interval finding of bilateral lower lungs predominantly right- sided confluent airspace opacities. No pneumothorax. ICAL PATHOLOGY Observed: 01/01/2018 Status: F Source: [facility] 5:04 PM [facility] REPOSITORY Surgical Pathology Report Patient Name: JASON ARROYO [facility]. Rec #: [id number] Submitting Physician: OMI WELLINGTON --- Clinical History --- 77-year-old female history of breast cancer now with diffuse bilateral ground glass opacities and nodules; has peripheral eosinophilia as well. Nonsmoker. ---Final Pathologic Diagnosis--- A. RLL, transbronchial lung biopsy: - Fragments of benign bronchial tissue with focal chronic inflammation. - Respiratory epithelium admixed with mucus. COMMENT: No microorganisms are identified on GMS and AFB stains. Deeper sections are examined. [id number]:01/03/2018 Electronically Signed By Antolin Jordan MD 01/03/2018 13:24:07 Professional Interpretation performed at location: [address] [place] [address] ---MICROSCOPIC:--- All controls show appropriate reactivity. The histochemical tests reported here were performed at the [facility], Clinical Laboratory, [address] [place] [address], [place] [address]. ---SPECIMEN(S) RECEIVED:--- SBX A: Lung /Bronchus, BX ---GROSS DESCRIPTION:--- The specimen is received in one properly labeled container with the patient's name and accession number. A. The specimen is designated TB bx RLL and consists of a 0.5 x 0.4 x 0.1 cm aggregate of molina-pink, smooth, mucoid, and irregular fallopian tube fragments. TE 1 Lab Use Only: JobID [id number] Gross description by: Kelley Gomez Performed By: #### SURGP #### [facility] [address] [place] [id number] [place] [address] [address] [place] [address] Observed: 01/01/2018 Status: F Source: [facility] RESPIRATORY CULTURE 4:24 PM [facility] REPOSITORY SOURCE: BRONCHIAL ALVEOLAR LAVAGE, QUANTITATIVE: Right Lower Lobe COMMENT: Clear 25 ML MICROSCOPIC: Cytocentrifuge preparation Neutrophils, Light Local Materials, Light NO ORGANISMS SEEN Gram Stain read at [facility] RESULT: NO GROWTH DAY 2 REPORT STATUS: 01/03/2018 FINAL Performed By: #### RES #### [address] [address] Blood Cultures processed at: [facility] Observed: 01/01/2018 Status: F Source: [facility] BAL CONSULT 4:24 PM [facility] REPOSITORY [phone] Moderately cellular specimen consisting predominantly of alveolar macrophages and neutrophils. No Pathogenic Organisms Seen Correlation with gram stain and culture results is recommended. Erlinda Scott M.D. Performed By: #### BALC #### [address] [address] IMMUNOPHENOTYPING, Collected: Status: F Source: [facility] FLUID/TISSUE 01/01/2018 4:24 PM [facility] REPOSITORY TYPE CODE TESTS RESULT OUT OF REFERENCE UNITS RANGE LAB ICINT3 Immunophenotyping FL SEE NOTES Result Comment: (NOTE) IMMUNOPHENOTYPING DIAGNOSIS PATIENT NAME: JASON ARROYO : 1940 ACCN#: [id number] SAMPLE TYPE: Bronchial Alveolar Lavage LABORATORY INTERPRETATION: Cannot evaluate due to insufficient number of cells. MARKERS TESTED: 7AAD, CD2 MARKERS BILLED: :0 This test was developed and its performance characteristics determined The Flow Cytometry Laboratory at [facility]. It has not been cleared or approved by the FDA. This laboratory is certified under the Clinical Laboratory Improvement Amendments (CLIA) as qualified to perform high complexity clinical laboratory testing. This test is used for clinical purposes. It should not be regarded as investigational or for research. The [facility] Flow Cytometry Laboratory lower limit of CLL MRD detection is 0.1% of the gated lymphocytes. Performed By: #### GIPP #### [address] [address] [place], [place] [address] Observed: 01/01/2018 Status: F Source: [facility] ACID FAST CULTURE 4:24 PM [facility] REPOSITORY SOURCE: BRONCHIAL ALVEOLAR LAVAGE: Right Lower Lobe COMMENT: Clear 25 ML MICROSCOPIC: No Acid Fast Bacillus Seen :Examined by Fluorochrome Stain RESULT: NO GROWTH DAY 42 OF 42 REPORT STATUS: 02/12/2018 FINAL Performed By: #### AFB #### [address] [address] Blood Cultures processed at: [facility] Observed: 01/01/2018 Status: F Source: [facility] 4:24 PM [facility] REPOSITORY SOURCE: BRONCHIAL ALVEOLAR LAVAGE: Right Lower Lobe COMMENT: Cultures held 28 days. Clear 25 ML RESULT: NO GROWTH TO DATE REPORT STATUS: 01/29/2018 FINAL Performed By: #### FUN #### [address] [address] Blood Cultures processed at: [facility] Observed: 01/01/2018 Status: F Source: [facility] LEGIONELLA CULTURE 4:24 PM [facility] REPOSITORY SOURCE: BRONCHIAL ALVEOLAR LAVAGE: Right Lower Lobe COMMENT: Clear 25 ML RESULT: NO GROWTH DAY 7 REPORT STATUS: 01/09/2018 FINAL Performed By: #### SUSAN #### [place] [address] Blood Cultures processed at: [facility] CYTOLOGY- NON-CHIPPER FEEDER Observed: 01/01/2018 Status: F Source: [facility] 4:24 PM [facility] REPOSITORY Cytology Report Patient Name: JASON ARROYO Med. Rec. #: [id number] Submitting Physician: OMI WELLINGTON ---Clinical History:--- - 77 year old female with history of breast cancer - Diffuse bilateral ground glass opacities and nodules - Peripheral eosinophilia - Non-smoker ---Source of Specimen(s):--- A: Bronchoalveolar Lavage Cytologic Diagnosis RIGHT LOWER LOBE (CYTOLOGY): - Rare Atypical Cell. rren/RREN:01/03/2018 ---Electronically Signed Out By Reanna Carlson MD, PhD--- Evp Strategy: NASEEM Bailey (ASCP) ---Procedures/Addenda--- Performed By: #### NONGN #### [facility] [address] [place] [address] [facility] [address] [place] [address] [facility] ANTIGEN, Collected: 01/01/2018 Status: F Source: [facility] 4:24 PM [facility] REPOSITORY TYPE CODE TESTS RESULT OUT OF REFERENCE UNITS RANGE LAB ASGFL <0.50 Aspergillus Antigen, fluid 0.11 LAB ASGIN NOT DETECTED Asper Interpretation NOT DETECTED Result Comment: (NOTE) A negative result does not exclude invasive aspergillosis. Follow-up testing may be indicated for high-risk patients. RESULT INTERPRETATION: An Index <0.50 is considered to be negative. An Index >=0.50 is considered to be positive. A positive result for patients being treated with piperacillin-tazobactam and other beta-lactam antibiotics such as amoxicillin-clavulanate may be a false positive due to cross reactivity and should be viewed in conjunction with all clinical findings. Positive results with this assay has also been reported in patients infected with Penicillium marneffei and Cryptococcus. Test Performed by [facility], [facility], [address] [place] [address] Harman Estrada M.D., Ph.D., Director of Laboratories , [facility] [id number] Test sent to [facility] Performed By: #### XASGFL #### Reference lab information reported with result PT*PTT - CHRI Collected: 01/01/2018 Status: F Source: [facility] 10:05 AM [facility] REPOSITORY TYPE CODE TESTS RESULT OUT OF RANGE REFERENCE UNITS LAB PT 11.9-14.2 sec High PT 14.3 LAB INR 0.9-1.1 INR 1.1 LAB PTT 24.0-34.3 sec High PTT 37.1 CBC WITH DIFF TINY Collected: 01/01/2018 Status: F Source: [facility] 4:52 AM [facility] REPOSITORY TYPE CODE TESTS RESULT OUT OF REFERENCE UNITS RANGE LAB WBC 3.98-10.04 K/uL WBC Count 9.06 LAB RBC 3.93-5.22 M/uL RBC Count 4.90 LAB HGB 11.2-15.7 g/dL Hemoglobin 15.0 LAB HCT 34.1-44.9 % Hematocrit 44.9 LAB MCV 79.4-94.8 fL Mean Cell 91.6 Volume LAB MCH 25.6-32.2 pg Mean Cell 30.6 Hgb LAB MCHC 32.2-35.5 g/dL Mean Cell 33.4 Hgb Conc LAB RDW 11.7-14.4 % RBC 12.8 Distribution LAB PLT 182-369 K/uL Platelet 164 Low Count LAB MPV 9.4-12.3 fL Mean 9.1 Low Platelet Volume LAB NRBC 0.0-0.2 /100 WBC NUCLEATED 0.0 RBC LAB DTYPE Electronic DIFFERENTIAL TYPE Differential LAB IGRE % IMMATURE 0.3 GRANS % LAB SEGS % NEUTROPHIL 62.5 SEGMENTED LAB LYM % LYMPHOCYTE 25.7 % LAB MON % MONOCYTE % 6.2 LAB EOS % EOSINOPHIL 4.5 % LAB BASO % BASOPHIL % 0.8 LAB IGABS <0.04 K/uL IMMATURE <0.04 GRANS ABSOLUTE LAB SBANS 1.56-6.13 K/uL SEGS + 5.66 Bands,Absolute LAB ALYM 1.18-3.74 K/uL Abs Lymph 2.33 LAB AMONO 0.24-0.86 K/uL Abs Toombs 0.56 LAB AEOS <0.37 K/uL Abs Eos 0.41 High LAB ABASO <0.09 K/uL Abs Baso 0.07 Performed By: #### SIERRADFJ #### [facility] [address] [place] [address] HEPATIC FUNCTIONS - Collected: 01/01/2018 Status: F [facility] REPOSITORY TYPE CODE TESTS RESULT OUT OF REFERENCE UNITS RANGE LAB AST 14-40 U/L AST 23 LAB ALT 9-48 U/L ALT 22 LAB ALP 32-126 U/L Alkaline Phosphatase 84 LAB ALB 3.5-5.0 g/dL Albumin 3.6 LAB BILD <0.3 mg/dL Bilirubin Direct 0.1 LAB BILT <1.5 mg/dL Bilirubin Total 0.7 LAB TP 6.4-8.3 g/dL Low Total Protein 5.8 Performed By: #### SIERRADFJusta #### Tiny [facility] [address] [place] [address] CHEM 7 - CHRI Collected: 01/01/2018 Status: F Source: [facility] 4:52 AM [facility] REPOSITORY TYPE CODE TESTS RESULT OUT OF REFERENCE UNITS RANGE LAB BUN 7-22 mg/dL BUN 9 LAB CREA 0.50-1.20 mg/dL Creatinine 0.67 LAB NA 133-143 mmol/L Sodium 134 LAB K 3.5-5.0 mmol/L Potassium 4.0 LAB CL 98-108 mmol/L Chloride 105 Result Comment: Results inconsistent with the patient's previous results LAB CO2 22-30 mmol/L Low Carbon Dioxide 19 LAB GLUC 70-99 mg/dL Glucose High 121 LAB GFR >60 mL/min/1.73sq M Est GFR,non >60 LAB GFRA >60 mL/min/1.73sq M Est GFR, >60 LAB GAP 7-17 mmol/L Anion Gap 14 LAB BC BUN/CREA Ratio 13 LAB OSMC 278-305 mOsm/kg Osmolality (Calc) 282 Performed By: #### SIERRADFJ #### Tiny [facility] [address] [place] [address] CALCIUM - CHRI Collected: 01/01/2018 Status: F Source: [facility] 4:52 [facility] REPOSITORY TYPE CODE TESTS RESULT OUT OF REFERENCE UNITS RANGE LAB CA 8.6-10.5 mg/dL Low Calcium 8.5 Performed By: #### SIERRADFJ #### Tiny [facility] [address] [place] [address] INORG PHOSPHATE - CHRI Collected: 01/01/2018 Status: F Source: [facility] 4:52 AM [facility] REPOSITORY TYPE CODE TESTS RESULT OUT OF REFERENCE UNITS RANGE LAB IP 2.2-4.6 mg/dL Inorg Phosphate 3.0 Performed By: #### SIERRADFJ #### Tiny [facility] [address] [place] [address] MAGNESIUM - CHRI Collected: 01/01/2018 Status: F Source: [facility] 4:52 AM [facility] REPOSITORY TYPE CODE TESTS RESULT OUT OF REFERENCE UNITS RANGE LAB MG 1.6-2.6 mg/dL Magnesium 2.0 Performed By: #### CBCDFJ #### Tiny [facility], [facility] [address] [place] [address] STREP PNEUMONIAE Collected: 01/01/2018 Status: F Source: [facility] ANTIGEN,URINE 12:24 AM [facility] REPOSITORY TYPE CODE TESTS RESULT OUT OF REFERENCE UNITS RANGE LAB PNEUMO Negative Strep Pneumoniae Negative Antigen,urine Performed By: #### PNEUMO #### [facility] [address] [place] [id number] [place] [address] [address] [place] [address] LEGIONELLA URINARY Collected: 01/01/2018 Status: F Source: [facility] ANTIGEN 12:24 AM [facility] REPOSITORY TYPE CODE TESTS RESULT OUT OF REFERENCE UNITS RANGE LAB LEGION Negative Legionella Negative Urinary Antigen Performed By: #### LEGION #### [facility] [address] [place] [address] [facility] [address] [place] [address] Observed: 12/31/2017 Status: F Source: [facility] BLOOD:ROUTINE II 11:50 PM [facility] REPOSITORY SOURCE: BLOOD, PERIPHERAL: Left Hand RESULT: NO GROWTH DAY 5 OF 5 REPORT STATUS: 01/06/2018 FINAL Performed By: #### FAST2 #### [place] [address] Blood Cultures processed at: [facility] XR CHEST PA AND Observed: 12/31/2017 Status: F Source: [facility] LATERAL 11:11 PM [facility] REPOSITORY EXAM: XR CHEST PA AND LATERAL, 12/31/2017 22:41 PM COMPARISON: CT chest December 27, 2017 CLINICAL INDICATIONS: worsening shortness of breath on exertion. FINDINGS: (Adequate technique) Implanted Devices: None Chest Wall: Status post right axillary sherita dissection. Sruthi: Normal Mediastinum: Normal Pleural Spaces: No pleural effusion. No pneumothorax. Lungs: Redemonstration of patchy basilar predominant opacities, grossly similar to recent CT chest study allowing for differences in modality. No progressive airspace disease. Cardiac Silhouette: Normal contour. Thoracic Aorta: Normal Pulmonary Vessels: Normal, without PVH IMPRESSION: Redemonstration of patchy basilar predominant opacities, grossly similar to recent CT chest study allowing for differences in modality. Please refer to the December 27, 2017 CT chest report for differential considerations. Observed: 12/31/2017 Status: F Source: [facility] BLOOD:ROUTINE I 11:00 PM [facility] REPOSITORY SOURCE: BLOOD, PERIPHERAL: Left Arm RESULT: NO GROWTH DAY 5 OF 5 REPORT STATUS: 01/06/2018 FINAL Performed By: #### FAST #### [facility] [address] [place] [address] Blood Cultures processed at: [facility] CHEM 7 ED - CHRI Collected: 12/31/2017 Status: F Source: [facility] 10:10 PM [facility] REPOSITORY TYPE CODE TESTS RESULT OUT OF REFERENCE UNITS RANGE LAB BUN 7-22 mg/dL BUN 8 LAB CREA 0.50-1.20 mg/dL Creatinine 0.76 LAB NA 133-143 mmol/L Sodium 136 LAB K 3.5-5.0 mmol/L Low Potassium 3.3 LAB CL 98-108 mmol/L Chloride 98 LAB CO2 22-30 mmol/L Carbon Dioxide 29 LAB GLUC 70-99 mg/dL Glucose High 108 LAB GFR >60 mL/min/1.73 sqM Est GFR,non >60 Slovak LAB GFRA >60 mL/min/1.73 sqM Est GFR, >60 LAB GAP 7-17 mmol/L Anion Gap 12 LAB BC BUN/CREA Ratio 11 LAB OSMC 278-305 mOsm/kg Osmolality 283 (Calc) Performed By: #### CBCDFJ #### Tiny [facility] [address] [place] [address] #### BNP #### [facility] [address] [address] CALCIUM - CHRI Collected: 12/31/2017 Status: F Source: [facility] 10:10 PM [facility] REPOSITORY TYPE CODE TESTS RESULT OUT OF REFERENCE UNITS RANGE LAB CA 8.6-10.5 mg/dL Calcium 10.1 Performed By: #### CBCDFJ #### Tiny [facility], [facility] [address] [place] [address] #### BNP #### [facility] [address] [place] [address] [facility] [address] [place] [address] INORG PHOSPHATE - CHRI Collected: 12/31/2017 Status: F Source: [facility] 10:10 PM [facility] REPOSITORY TYPE CODE TESTS RESULT OUT OF REFERENCE UNITS RANGE LAB IP 2.2-4.6 mg/dL Inorg Phosphate 2.9 Performed By: #### CBCDFJ #### Tiny [facility] [address] [place] [address] #### BNP #### [facility] [address] [place] [id number] [place] [address] [address] [place] [address] MAGNESIUM - CHRI Collected: 12/31/2017 Status: F Source: [facility] 10:10 PM [facility] REPOSITORY TYPE CODE TESTS RESULT OUT OF REFERENCE UNITS RANGE LAB MG 1.6-2.6 mg/dL Magnesium 2.2 Performed By: #### CBCDFJ #### Tiny [facility], [facility] [address] [place] [address] #### BNP #### [facility] [address] [place] [address] [facility] [address] [place] [address] CBC WITH DIFF TINY Collected: 12/31/2017 Status: F Source: [facility] 10:10 PM [facility] REPOSITORY TYPE CODE TESTS RESULT OUT OF REFERENCE UNITS RANGE LAB WBC 3.98-10.04 K/uL WBC Count 8.95 LAB RBC 3.93-5.22 M/uL RBC Count 5.85 High LAB HGB 11.2-15.7 g/dL Hemoglobin 17.5 High LAB HCT 34.1-44.9 % Hematocrit 53.4 High LAB MCV 79.4-94.8 fL Mean Cell 91.3 Volume LAB MCH 25.6-32.2 pg Mean Cell 29.9 Hgb LAB MCHC 32.2-35.5 g/dL Mean Cell 32.8 Hgb Conc LAB RDW 11.7-14.4 % RBC 12.7 Distribution LAB PLT 182-369 K/uL Platelet 207 Count LAB MPV 9.4-12.3 fL Mean 9.3 Low Platelet Volume LAB NRBC 0.0-0.2 /100 WBC NUCLEATED 0.0 RBC LAB DTYPE Electronic DIFFERENTIAL TYPE Differential LAB IGRE % IMMATURE 0.3 GRANS % LAB SEGS % NEUTROPHIL 61.1 SEGMENTED LAB LYM % LYMPHOCYTE 26.1 % LAB MON % MONOCYTE % 6.7 LAB EOS % EOSINOPHIL 4.7 % LAB BASO % BASOPHIL % 1.1 LAB IGABS <0.04 K/uL IMMATURE <0.04 GRANS ABSOLUTE LAB SBANS 1.56-6.13 K/uL SEGS + 5.46 Bands,Absolute LAB ALYM 1.18-3.74 K/uL Abs Lymph 2.34 LAB AMONO 0.24-0.86 K/uL Abs Toombs 0.60 LAB AEOS <0.37 K/uL Abs Eos 0.42 High LAB ABASO <0.09 K/uL Abs Baso 0.10 High Performed By: #### CBCDFJ #### Tiny [place] [address] #### BNP #### [facility] [address] [place] [address] [address] [place] [address] B-TYPE NATRIURETIC Collected: 12/31/2017 Status: F Source: [facility] PEPTIDE 10:10 PM [facility] REPOSITORY TYPE CODE TESTS RESULT OUT OF REFERENCE UNITS RANGE LAB TROP <0.11 ng/mL Troponin I <0.01 Performed By: #### CBCDFJ #### Tiny [place] [address] #### BNP #### [facility] [address] [place] [address] [place] [address] [address] NECK WITH CONTRAST Observed: 12/27/2017 Status: F Source: [facility] 4:34 PM [facility] REPOSITORY EXAM: CT NECK WITH CONTRAST, 12/27/2017 15:53 PM COMPARISON: None. CLINICAL INDICATIONS: 77 years Female sense of something stuck in throat/cough- 3 months, history fo breast cancer; evaluate for metastasis RELEVANT CLINICAL HISTORY: C50.912:Malignant neoplasm of left breast in female, estrogen receptor negative, unspecified site of breast Z17.1:Malignant neoplasm of left breast in female, estrogen receptor negative, unspecified site of breast Patient with history of breast cancer; compare with previous exam. Measurements per RECIST criteria where applicable.; TECHNIQUE: A series of transaxial multislice computerized tomographic images are obtained with helical technique from top of aortic arch through skull base following bolus intravenous administration of nonionic contrast. Axial 3 mm and coronal and sagittal 2 mm reformats are provided. CONTRAST: iohexol (OMNIPAQUE) 350 MG/ML injection 1-171 mL; Route of Administration: Intravenous; Dose: 75 mL. This patient underwent a CT examination using radiation exposure as low as reasonably achievable. CTDIvol and DLP radiation exposure values for each series were: Exposure: 1; Series: 3; Anatomy: Chest; Phantom: 32 cm; CTDIvol: 5; DLP: 164 Exposure: 2; Series: 6; Anatomy: Neck; Phantom: 32 cm; CTDIvol: 8; DLP: 237 Exposure: 3; Series: 4; Anatomy: Neck; Phantom: 32 cm; CTDIvol: 3; DLP: 11 Exposure: 4; Series: 5; Anatomy: Neck; Phantom: 32 cm; CTDIvol: 2; DLP: 9 The following accession numbers are related to this dose report {[id number]}: [id number] The dose indicators for CT are the volume Computed Tomography (CT) Dose Index (CTDIvol) and the Dose Length Product (DLP), and are measured in units of mGy and mGy-cm, respectively. These indicators are not patient dose, but values generated from the CT scanner acquisition factors and may substantially underestimate or overestimate the absorbed dose based on patient size and other factors. FINDINGS: The spinal curvature is normal. Minor disc degeneration. The mandible is normal. Old screws at the angle of the mandible. There is a separate chest CT. The paranasal sinuses are clear. The temporal bones are clear. The esophagus is partially filled with air, but not distended significantly. The trachea is normal. Aorta normal. Thyroid gland normal. Airway normal. Glottis normal. Tongue normal. Nasopharynx normal. Pterygopalatine fissures normal. Parapharyngeal fat planes normal. Brain normal. No abnormal contrast enhancement. Bilateral previous cataract surgery. The salivary glands are normal. No major adenopathy. The styloid processes are not particularly long or abnormal. IMPRESSION: No significant finding. No metastatic disease. No esophageal foreign body. CHEST WITH Observed: 12/27/2017 Status: F Source: [facility] 4:23 PM [facility] REPOSITORY EXAM: CT CHEST WITH CONTRAST, 12/27/2017 15:52 PM COMPARISON: No Available Comparisons. CLINICAL INDICATIONS: TNBC with persistent of cough; RELEVANT CLINICAL HISTORY: C50.912:Malignant neoplasm of left breast in female, estrogen receptor negative, unspecified site of breast Z17.1:Malignant neoplasm of left breast in female, estrogen receptor negative, unspecified site of breast Patient with history of breast cancer; compare with previous exam. Measurements per RECIST criteria where applicable.; TECHNIQUE: Following the administration of intravenous contrast, axial CT images were reconstructed from the volumetric data set, from the thoracic inlet through the adrenal glands. Coronal MIP images were also reconstructed. CONTRAST: iohexol (OMNIPAQUE) 350 MG/ML injection 1-171 mL; Route of Administration: Intravenous; Dose: 50 mL. This patient underwent a CT examination using radiation exposure as low as reasonably achievable. CTDIvol and DLP radiation exposure values for each series were: Exposure: 1; Series: 3; Anatomy: Chest; Phantom: 32 cm; CTDIvol: 5; DLP: 164 Exposure: 2; Series: 6; Anatomy: Neck; Phantom: 32 cm; CTDIvol: 8; DLP: 237 Exposure: 3; Series: 4; Anatomy: Neck; Phantom: 32 cm; CTDIvol: 3; DLP: 11 Exposure: 4; Series: 5; Anatomy: Neck; Phantom: 32 cm; CTDIvol: 2; DLP: 9 The following accession numbers are related to this dose report {[id number]}: [id number] The dose indicators for CT are the volume Computed Tomography (CT) Dose Index (CTDIvol) and the Dose Length Product (DLP), and are measured in units of mGy and mGy-cm, respectively. These indicators are not patient dose, but values generated from the CT scanner acquisition factors and may substantially underestimate or overestimate the absorbed dose based on patient size and other factors. FINDINGS: Lungs and Pleura: Multiple ill-defined nodular densities, predominantly peripheral. 1 area of combined groundglass and consolidation in the right lower lobe measures 1.6 x 2.2 cm. There are other similar foci of consolidative density, most dense at the bases bilaterally. No pleural fluid. Tracheobronchial tree: No abnormality. Mediastinum/Sruthi: No mediastinal or hilar lymphadenopathy. Axilla and Supraclavicular Region: No axillary or supraclavicular adenopathy. Cardiovascular: The cardiac chambers and pericardium are within normal limits. The aorta and arch branch vessels, as well as the pulmonary arteries, are unremarkable. Upper Abdomen: The upper abdominal contents are unremarkable. Bones and Soft Tissue: Status post bilateral mastectomy. No suspicious osseous lesion. IMPRESSION: 1. Extensive abnormalities, predominantly nodular consolidations with a peripheral predominance. This could be an infectious process, even septic emboli. Alternatively, an inflammatory process such as cryptogenic organizing pneumonia would be a possibility. This could be metastatic, although the morphology is unusual. 2. No adenopathy. Significant non-emergent notification was sent by [employer] logo to [facility] on 12/27/2017 4:20:01 PM. *CRE/GFR POC DEVICE Collected: 12/27/2017 Status: F Source: [facility] 3:31 PM [facility] REPOSITORY TYPE CODE TESTS RESULT OUT OF REFERENCE UNITS RANGE LAB CREPC 0.50-1.20 mg/dL Creatinine (poc 0.92 device) LAB GFRPC >60 mL/min/1.7 3 sq m est GFR, (poc device) >60 LAB PCSTYP *POC SAMPLE TYPE :Bloody PROGRESS Observed: 08/13/2017 Status: COMPLETED Source: [place] 9:21 AM [facility] REPOSITORY HNO ID: [id number] Author: Madelyn Tadeo Cma Service: (none) Author Type: (none) Type: Progress Notes Filed: 08/13/2017 9:21 AM Note Text: I spoke with Jason and she states that she is now seeing a different doctor. Dr. Gallagher removed as PCP. PROGRESS Observed: 08/13/2017 Status: COMPLETED Source: [place] 9:13 AM [facility] REPOSITORY HNO ID: [id number] Author: Madelyn Tadeo Cma Service: (none) Author Type: (none) Type: Progress Notes Filed: 08/13/2017 9:21 AM Note Text: PHMA TEAMLET DOCUMENTATION Provider Action/FYI: Please file labs. Pt. PSR Action/FYI: Teamlet has identified patient by name and date of . Team: Joanne Kulkarni, Myself ? Last Office Visit:Visit date not found ? Next Office Visit: Visit date not found ? Last BP/Labs: Blood Pressure: Last 3 Encounter BP Readings: Date: BP: 02/16/2016 110/68 02/06/2016 106/70 11/23/2015 120/68 Lipids: Cholesterol, Total (mg/dL) Date Value 02/15/2014 176 HDL Cholesterol (mg/dL) Date Value 02/15/2014 47 LDL Cholesterol (mg/dL) Date Value 02/15/2014 107 Triglyceride (mg/dL) Date Value 02/15/2014 108 HGB A1C: No results found for: HBA1C TSH: No results found for: TSH) Care Gap: on CVD list Plan: ? Confirm PCP / Status ? Type of appointment needed: Physical next available Labs, HM and Immunization: Health Maintenance Due: DTAP,TDAP,TD(1 - Tdap) due on 1959 DIABETES SCREEN due on 02/15/2017 - BMP order pending Madelyn Tadeo Cma CNPTOUTREACH Observed: 08/13/2017 Status: COMPLETED Source: [place] 12:00 AM [facility] REPOSITORY Patient Outreach (INTMWS) JASON ARROYO ([id number]) 1940 F Date Time Provider Department 08/13/17 MADELYN TADEO) INTMWS During your visit today, we recorded the following information about you: Madelyn Tadeo Cma 08/13/2017 9:21 AM Signed PHMA TEAMLET DOCUMENTATION Provider Action/FYI: Please file labs. Pt. PSR Action/FYI: Teamlet has identified patient by name and date of . Team: Joanne Kulkarni, Myself ? Last Office Visit:Visit date not found ? Next Office Visit: Visit date not found ? Last BP/Labs: Blood Pressure: Last 3 Encounter BP Readings: Date: BP: 02/16/2016 110/68 02/06/2016 106/70 11/23/2015 120/68 Lipids: Cholesterol, Total (mg/dL) Date Value 02/15/2014 176 HDL Cholesterol (mg/dL) Date Value 02/15/2014 47 LDL Cholesterol (mg/dL) Date Value 02/15/2014 107 Triglyceride (mg/dL) Date Value 02/15/2014 108 HGB A1C: No results found for: HBA1C TSH: No results found for: TSH) Care Gap: on CVD list Plan: ? Confirm PCP / Status ? Type of appointment needed: Physical next available Labs, HM and Immunization: Health Maintenance Due: DTAP,TDAP,TD(1 - Tdap) due on 1959 DIABETES SCREEN due on 02/15/2017 - BMP order pending Madelyn Carlyle Shaw Lea [employer], Madelyn 08/13/2017 9:21 AM Signed I spoke with Jason and she states that she is now seeing a different doctor. Dr. Gallagher removed as PCP. Allergies As of Date: 08/13/2017 Noted Allergy Reaction CODEINE 03/02/2005 8 - GI Upset Comments: States that Percocet, which she took at one time for migraine headaches made her nauseated and vomit. She does not have a true allergy to codeine. Fatuma Romero, [employer] DEMEROL (MEPERIDINE (PF)) 03/02/2005 8 - GI Upset FLONASE (FLUTICASONE PROPIONATE) 05/08/2005 5 - Intolerance Comments: Irritated nose LATEX 01/04/2006 7 - Swelling Comments: after wearing mouth guard after tmj surgery mouth swelled. no b/ps omn rt arm [Other] 06/29/2009 Date Reviewed: 02/16/2016 Reviewed by: Renetta Almodovar LPN - Fully Assessed Reason for Visit: PHMA/Care Gap Outreach [[id number]] Primary Visit Diagnosis:Screening, lipid [Z13.220] Other Visit Diagnosis:Encounter for screening for diabetes mellitus [Z13.1] Prescriptions as of 08/13/2017 Sig: OMEPRAZOLE 20 MG CAPSULE,ESTELA* Take 1 capsule by mouth as ne* CHOLECALCIFEROL (VITAMIN D3) * Take 1 capsule by mouth twice* B COMPLEX ORAL Take by mouth. OTC NUTRITIONAL SUPPLEMENT Immune boost pill * IBUPROFEN 200 MG CAPSULE Take by mouth as needed. * BIOTIN PLUS-CALCIUM AND VIT D* Take one(1) tablet daily. * FISH OIL 1,200 MG-144 MG-216 * Take one(1) tablet two(2) freddy* * THERAPEUTIC MULTIVITAMIN TABL* Take one(1) tablet daily. * [id number]* Take one(1) tablet daily. Problem List As Of Date 08/13/2017 Noted Resolved Chronic rhinitis [J31.0] INVALID FOR*02/11/2014 More... Generalized osteoarthrosis, unspecified site [M*INVALID FOR*02/11/2014 Esophageal reflux [K21.9] INVALID FOR* More... Contact dermatitis and other eczema, due to uns*INVALID FOR* More... Enthesopathy of hip region [M76.899] INVALID FOR* More... Breast cancer (HCC) [C50.919] INVALID FOR* More... Osteopenia [M85.80] INVALID FOR* More... Pain in joint, pelvic region and thigh [M25.559]INVALID FOR* More... Back pain [M54.9] INVALID FOR* More... Encounter Status:Closed by MADELYN TADEO CMA on 08/13/17 ALLERGIES ALLERGIES DATE TYPE / CODE NAME / CODE REACTION SEVERITY SOURCE Drug codeine/[id number] Unknown Unknown Madelin 9 Allergy/093697101( 50(RXNORM) [facility] Hospital Repository Drug latex/[id number] Unknown Unknown [place] 9 Allergy/602916088( (RXNORM) [facility] SNOMED CT) Hospital Repository Miscellaneous OTHER Matos 0 Allergy/303402401( [facility] SNOMED CT) [place] Repository DRUG LATEX SWELLING Paulina 6 INGREDI/023787356( [facility] SNOMED CT) [place] Repository DRUG FLUTICASONE INTOLERANCE Paulina 6 INGREDI/053995531( PROPIONATE [facility] SNOMED CT) [place] Repository DRUG CODEINE GI UPSET Med Paulina 5 INGREDI/656995320( Clinic Main SNOMED CT) [place] Repository DRUG/[id number](SNO MEPERIDINE (PF) GI UPSET Count Includes [facility] [address] [facility] [place] Repository ENCOUNTERS ENCOUNTERS ADMIT/DISCHARGE ACCOUNT NUMBER ADMITTING ENCOUNTER LOCATION SOURCE CLASS 04/30/2018 [id number] FLO Inpatient Building:[address] Encounter oom: [place] 5004Bed: A [facility] Repository 04/28/2018/04/28/19 [id number] Ambulatory [address] Repository 04/28/2018/04/28/19 [id number] Ambulatory [address] Repository 04/28/2018/04/28/19 [id number] Ambulatory BMSBuilding: Madelin 19 BMS.[facility] Repository 04/25/2018 [id number] Ambulatory [facility] ding:CVS Repository 04/22/2018 [id number] Ambulatory [facility] ding:PSN Repository 04/21/2018 [id number] Ambulatory Building:BS2 [facility] Repository 04/18/2018 [id number] Ambulatory Building:[facility] Repository 04/17/2018 [id number] Ambulatory [facility] ding:LAB Repository 03/17/2018/03/17/20 [id number] Ambulatory BMSBuilding: [place] 18 BMS.[facility] Repository 03/14/2018 [id number] Ambulatory BMSBuilding: [place] BMS.[facility] Repository 02/05/2018 [id number] Ambulatory Building:O [facility] Repository 02/03/2018 [id number] Ambulatory Building:BS2 [facility] Repository 01/31/2018 [id number] Ambulatory Building:E [facility] Repository 01/31/2018 [id number] Ambulatory Building:[facility] Repository 01/06/2018 [id number] Ambulatory Building[facility] Repository 12/31/2017/01/04/20 [id number] DEN [place] Inpatient Building:[place] [address] Encounter DRoom: University 1841Bed: A [facility] Repository 12/27/2017 [id number] Ambulatory Building[facility] Repository 12/27/2017 [id number] Ambulatory Building:[facility] Repository 12/27/2017 [id number] Ambulatory Building:[facility] Repository 12/27/2017 [id number] Ambulatory Building:[facility] Repository 12/27/2017 [id number] Ambulatory Building:[facility] Repository 11/28/2017 [id number] Ambulatory Building[facility] Repository 10/11/2017 [id number] Ambulatory [facility] ding:MASS Repository 09/09/2017/09/10/19 [id number] Ambulatory BMSBuilding: [address] Repository 05/21/2017 [id number] Ambulatory Building:[facility] Repository PAYERS PAYERS ENCOUNTER GUARANTOR PAYER SUBSCRIBER SOURCE 04/30/2018 JASON Carrington Primary JASON Carrington [facility] BARNETTDOB: Insurance:MEDICARE A BARNETTDOB: [place] [id number] BOX AND BPolicy Number: [id number] Berger Hospital [id number] [facility] [id number] [address] [facility] Date:3600-59-92Tzkf [facility] Repository [place], [place] Name:[place], [place] [address]Lru: [phone]: (JI) [phone] (HP) 04/30/2018 Secondary JASON Carrington [facility] Insurance:HEALTH PLAN BARNETTDOB: [facility] [id number] Medical Centericy Number: [facility] [id number] Center [id number] ROBI [facility] Repository Date:2320-96-83BcsbSouth [place], [place] Name:MANAGED CARE [address]Lvt: () 04/28/2018 ANALIA Boyd Primary JASON Carrington [place] [id number] [place] Insurance:MEDICARE BARNETTDOB: Community DRPO BOX PART A [facility] [id number] Number: Repository [place], [place] [id number] [address]Uko: (330) Date:2018-04-28 [phone] () 04/28/2018 Secondary JASON M Madelin Insurance:HEALTH PLAN BARNETTDOB: [facility] [id number] Clinic Health System[facility] Number: Repository [id number] Date: [place], [place] [address]GT: 04/28/2018 Tertiary NOT GIVENUNK [place] Insurance:SELF PAY [facility] Number: Effective Repository Date:2018-04-28 04/25/2018 ANALIA Boyd Primary JASON Zeb [place] [id number] [place] Insurance:MEDICARE BARNETTDOB: [facility] DRPO BOX PART A [facility] [id number] Number: Repository [place], [place] [id number]: (330) Date:2018-04-22 [phone] () 04/25/2018 Secondary JASON M Madelin Insurance:HEALTH PLAN BARNETTDOB: [facility] [id number] Clinic Health System– [facility]pewa [facility] Number: Repository [id number] Date: [place], [place] [address]EN: 04/25/2018 Tertiary NOT GIVENUNK [place] Insurance:SELF PAY [facility] Number: Effective Repository Date:2018-04-22 04/22/2018 ANALIA Boyd Primary JASON Zeb [place] [id number] [place] Insurance:MEDICARE BARNETTDOB: Community DRPO BOX PART A [facility] [id number] Number: Repository [place], [place] [id number] [address]Uor: (330) Date:2018-04-18 [phone] (HP) 04/22/2018 Secondary JASON Yusuf Insurance:HEALTH PLAN BARNETTDOB: [facility] [id number] Clinic Health System– [facility]pewa [facility] Number: Repository [id number] Date: [place] [address]ZN: 04/22/2018 Tertiary NOT GIVENUNK Mad[place] Insurance:SELF PAY [facility] Number: Effective Repository Date:2018-04-18 04/21/2018 JASON Carrington Primary JASON Carrington [facility] BARNETTDOB: Insurance:MEDICARE A BARNETTDOB: [place] [id number] BOX AND BPolicy Number: [id number] Berger Hospital [id number] [place] [id number] [address] [facility] Date:2175-46-74Bpcf [facility], [place] Name:[place], [place] [address]Vnn: [phone]: (HP) [phone] () 04/21/2018 Secondary JASON Carrington [facility] Insurance:HEALTH PLAN BARNETTDOB: [facility] [id number] [facility] Number: [address] [place] [id number] [facility] Repository Date:8248-22-40ItqbSouth [place], [place] Name:MANAGED CARE [address]Wgk: (HP) 04/18/2018 JASON Carrington Primary JASON Carrington [facility] BARNETTDOB: Insurance:MEDICARE A BARNETTDOB: [place] [id number] BOX AND BPolicy Number: [id number] Berger Hospital [id number] [place] [id number] [address] [facility] Date:8595-47-31Mrlw [facility], [place] Name:[place], [place] [address]Czw: [phone]: (HP) [phone] (HP) 04/18/2018 Secondary JASON Carrington [facility] Insurance:HEALTH PLAN BARNETTDOB: [facility] [id number] Health Number: [facility] [id number] Center [id number] [place] [facility] Repository Date:7874-17-01EqomSouth [place], [place] Name:MANAGED CARE [address]Yec: () 04/17/2018 ANALIA Boyd Primary JASON Beattyoster [id number] [place] Insurance:MEDICARE BARNETTDOB: [facility] BOX PART A [facility] [id number] Number: Repository [place], [place] [id number]: 330) Date:2018-04-17 [phone] () 04/17/2018 Secondary JASON Zeb [place] Insurance:HEALTH PLAN BARNETTDOB: [facility] [id number] Clinic Health System– [facility] Number: Repository [id number] Date: [place], [place] [address]CE: 04/17/2018 Tertiary NOT GIVENUNK Mad[place] Insurance:SELF PAY [facility]ELif[facility] Number: Effective Repository Date:2018-04-17 03/17/2018 ANALIA Boyd Primary JASON Beattyoster [id number] [place] Insurance:MEDICARE BARNETTDOB: [facility] BOX PART A [facility] [id number] Number: Repository [place], [place] [id number] [address]Zls: (330) Date:2017-03-13 [phone] () 03/17/2018 Secondary JASON M [place] Insurance:HEALTH PLAN BARNETTDOB: [facility] [id number] Clinic Health System– [facility]pe[facility] Number: Repository [id number] Date: [place], [place] [address]TS: 03/17/2018 Tertiary NOT GIVENUNK [place] Insurance:SELF PAY [facility] Number: Effective Repository Date:2018-03-17 03/14/2018 ANALIA Boyd Primary JASON Beattyoster [id number] [facility] Insurance:MEDICARE BARNETTDOB: [facility] PART A [facility] [id number] Number: Repository [place], [place] [id number] [address]Hkk: 330) Date:2018-03-14 [phone] () 03/14/2018 Secondary JASON Zeb BeattyMadelin Insurance:HEALTH PLAN BARNETTDOB: [facility] [id number] Clinic Health System– [facility]pewa [facility] Number: Repository [id number] Date: [facility] [place] [address]LP: 03/14/2018 Tertiary NOT GIVENUNK [place] Insurance:SELF PAY [facility] Number: Effective Repository Date:2018-03-14 02/05/2018 [place] Primary JASON Carrington [facility] BARNETTDOB: Insurance:MEDICARE A BARNETTDOB: [place] [id number] BOX AND BPolicy Number: [id number] Berger Hospital [id number] [place] [id number] [address] [facility] Date:7600-12-83Enjq [place], [place] Name:[place], [place] [address]Rff: [phone]: () [phone] () 02/05/2018 Secondary JASON Carrington [facility] Insurance:HEALTH PLAN BARNETTDOB: [facility] [id number] [facility] Number: [address] [place] [id number] [facility] Repository Date:7043-43-67Jqwb [place] Name:[facility] CARE [address]Icl: () 02/03/2018 JASON M Primary JASON Carrington [facility] BARNETTDOB: Insurance:MEDICARE A BARNETTDOB: [place] [id number] BOX AND BPolicy Number: [id number] Berger Hospital [id number] [place] [id number] [address] [facility] Date:7924-00-02Svfo [facility], [place] Name:[place], [place] [address]Cjm: [phone]: (HP) [phone] (HP) 02/03/2018 Secondary JASON Carrington [facility] Insurance:HEALTH PLAN BARNETTDOB: [facility] [id number] Medical Centericy Number: [address] [place] [id number] [facility] Repository Date:0021-07-20LhjkSouth [place], [place] Name:[facility] [address]Dwi: (HP) 01/31/2018 JASON M Primary JASON M [facility] BARNETTDOB: Insurance:MEDICARE A BARNETTDOB: [place] [id number] BOX AND BPolicy Number: [id number] Berger Hospital [id number] [place] [id number] [address] [facility] Date:9446-78-37Wuer [facility], [place] Name:[place], [place] [address]Crd: [phone]: (HP) [phone] (HP) 01/31/2018 Secondary JASON Zeb [facility] Insurance:HEALTH PLAN BARNETTDOB: [facility] [id number] [facility] Number: [address] [place] [id number] [facility] Repository Date:0486-65-11QqscSouth [place], [place] Name:[facility] [address]Tdb: (HP) 01/31/2018 JASON M Primary JASON M [facility] BARNETTDOB: Insurance:MEDICARE A BARNETTDOB: [place] [id number] BOX AND BPolicy Number: [id number] Berger Hospital [id number] [place] [id number] [address] [facility] Date:9933-59-72Bqns [facility], [place] Name:[place], [place] [address]Ccw: [phone]: (HP) [phone] (HP) 01/31/2018 Secondary JASON Carrington [facility] Insurance:HEALTH PLAN BARNETTDOB: [facility] [id number] Medical Centericy Number: [address] [place] [id number] [facility] Repository Date:7708-68-76NjkaSouth [place], [place] Name:MANAGED CARE [address]Ems: (HP) 01/06/2018 JASON Carrington Primary JASON Carrington [facility] BARNETTDOB: Insurance:MEDICARE A BARNETTDOB: [place] [id number] BOX AND BPolicy Number: [id number] Berger Hospital [id number] [place] [id number] [address] [facility] Date:5211-07-81Gfrz [facility], [place] Name:[place], [place] [address]Kfq: [phone]: (HP) [phone] (HP) 01/06/2018 Secondary JASON Carrington [facility] Insurance:HEALTH PLAN BARNETTDOB: [facility] [id number] Medical Centericy Number: [address] [place] [id number] [facility] Repository Date:1726-58-57EcedSouth [place], [place] Name:[facility] [address]Ziw: (HP) 12/31/2017 JASON Carrington Primary JASON Carrington [facility] BARNETTDOB: Insurance:MEDICARE A BARNETTDOB: [place] [id number] BOX AND BPolicy Number: [id number] Berger Hospital [id number] [place] [id number] [address] [facility] Date:4683-23-29Yngx [facility], [place] Name:[place], [place] [address]Pns: [phone]: (HP) [phone] (HP) 12/31/2017 Secondary JASON Carrington [facility] Insurance:HEALTH PLAN BARNETTDOB: [facility] [id number] Medical Centericy Number: [address] [place] [id number] ROBI [facility] Repository Date:3649-89-27QtneSouth [place], [place] Name:[facility] [address]Mdt: () 12/27/2017 JASON Carrington Primary JASON Carrington [facility] BARNETTDOB: Insurance:MEDICARE A BARNETTDOB: [place] [id number] BOX AND BPolicy Number: [id number] Berger Hospital [id number] [place] [id number] [address] [facility] Date:5912-12-02Cwfy [facility], [place] Name:[place], [place] [address]Dsm: [phone]: (HP) [phone] (HP) 12/27/2017 Secondary JASON Carrington [facility] Insurance:HEALTH PLAN BARNETTDOB: [facility] [id number] Medical Centericy Number: [address] [place] [id number] [facility] Repository Date:7409-64-07LtgiSouth [place], [place] Name:[facility] [address]Yfz: (HP) 12/27/2017 JASON Carrington Primary JASON Carrington [facility] BARNETTDOB: Insurance:MEDICARE A BARNETTDOB: [place] [id number] BOX AND BPolicy Number: [id number] Berger Hospital [id number] [place] [id number] [address] [facility] Date:9954-49-00Ksia [facility], [place] Name:[place], [place] [address]Quq: [phone]: (HP) [phone] (HP) 12/27/2017 Secondary JASON Carrington [facility] Insurance:HEALTH PLAN BARNETTDOB: [facility] [id number] Medical Centericy Number: [address] [place] [id number] [facility] Repository Date:3832-11-78BjogSouth [place], [place] Name:[facility] [address]Qhc: () 12/27/2017 JASON Carrington Primary JASON Carrington [facility] BARNETTDOB: Insurance:MEDICARE A BARNETTDOB: [place] [id number] BOX AND BPolicy Number: [id number] Berger Hospital [id number] [place] [id number] [address] [facility] Date:2637-79-69Hpdk [facility], [place] Name:[place], [place] [address]Qhb: [phone]: (HP) [phone] (HP) 12/27/2017 Secondary JASON Carrington [facility] Insurance:HEALTH PLAN BARNETTDOB: [facility] [id number] Medical Centericy Number: [address] [place] [id number] [facility] Repository Date:6182-92-06LyeeSouth [place], [place] Name:MANAGED CARE [address]Rof: () 12/27/2017 JASON Carrington Primary JASON Carrington [facility] BARNETTDOB: Insurance:MEDICARE A BARNETTDOB: [place] [id number] BOX AND BPolicy Number: [id number] Berger Hospital [id number] [place] [id number] [address] [facility] Date:6759-51-92Stll [facility], [place] Name:[place], [place] [address]Lca: [phone]: (HP) [phone] (HP) 12/27/2017 Secondary JASON Carrington [facility] Insurance:HEALTH PLAN BARNETTDOB: [facility] [id number] Medical Centericy Number: [address] [place] [id number] [facility] Repository Date:7696-56-74PekcSouth [place], [place] Name:MANAGED CARE [address]Maf: () 12/27/2017 JASON Carrington Primary JASON Carrington [facility] BARNETTDOB: Insurance:MEDICARE A BARNETTDOB: [place] [id number] BOX AND BPolicy Number: [id number] Berger Hospital [id number] [place] [id number] [address] [facility] Date:2545-71-19Fcwn [place], [place] Name:[place], [place] [address]Wyr: [phone]: (HP) [phone] (HP) 12/27/2017 Secondary JASON Carrington [facility] Insurance:HEALTH PLAN BARNETTDOB: [facility] [id number] [facility] Number: [address] [place] [id number] [place] [facility] Repository Date:5159-48-27BzpjSouth [place], [place] Name:[facility] [address]Mix: (HP) 11/28/2017 JASON Carrington Primary JASON Carrington [facility] BARNETTDOB: Insurance:MEDICARE A BARNETTDOB: [place] [id number] BOX AND BPhaven behavioral hospital [facility] Number: [id number] Berger Hospital [id number] [place] [id number] [address] [facility] Date:9117-10-08Mrlo [place] Name:[place], [place] [address]Nnu: [phone]: (HP) [phone] (HP) 11/28/2017 Secondary JASON Carrington [facility] Insurance:HEALTH PLAN BARNETTDOB: [facility] [id number] [facility] Hospital Number: [address] [place] [id number] RO[place] [facility] Repository Date:0272-15-22Qfra [place] Name:MANAGED CARE [address]Hkx: (HP) 10/11/2017 ANALIA Boyd Primary NOT GIVENUNK [place] [id number] [place] Insurance:SELF PAY [address] Number: Effective Repository [place] Date:2017-04-29 [address]Ieh: (HP) 09/09/2017 ANALIA Boyd Primary JASON M [place] [id number] [place] Insurance:MEDICARE BARNETTDOB: [facility] BOX PART A BPhaven behavioral hospital [facility] [id number] 648[facility] Number: Repository [place], [place] [id number] [address]Qwx: Date:2017-08-29 ~[phone]- [phone] (HP) 09/09/2017 Secondary JASON Yusuf Insurance:HEALTH PLAN BARNETTDOB: [facility] [id number] Clinic Health System– [facility]pewa [facility] Number: Repository [id number] Date: [place] [address]IJ: 09/09/2017 Tertiary NOT GIVENUNK [place] Insurance:SELF PAY [facility] Number: Effective Repository Date:2017-09-19 05/21/2017 JASON M Primary JASON Carrington [facility] BARNETTDOB: Insurance:MEDICARE A BARNETTDOB: [place] [id number] BOX AND olicy Number: [id number] Berger Hospital [id number] [facility] [id number] [facility] [address] [facility] Date:4200-44-82Yppf [place] Name:[place], [place] [address]Ryp: [phone]: () [phone] (HP) 05/21/2017 Secondary JASON Carrington [facility] Insurance:HEALTH PLAN BARNETTDOB: [facility] [id number] [facility] Number: [address] [place] [id number] [facility] Repository Date:6698-13-68Cmce [place], [place] Name:[facility] [address]Abt: (XG)
== END ==
PROVIDERS: Family Provider Internal Medicine; PCP Internal Medicine
DX: R06.02 Shortness of breath (principal); J84.9 Interstitial pulmonary disease, unspecified; R00.0 Tachycardia, unspecified
CPT/HCPCS: 93306